=== PATIENT | female | born 1980 | race Caucasian/White ===

== ENCOUNTER 2018-05-18 15:28 | Emergency (ER) | payer BC, SELFPAY ==
[2018-05-18 15:30] VITALS: BP 129/89; PULSE 89; RESP 16; TEMP 36.4; BMI 32.1
--- NOTE | 2018-05-18 16:13 | RAD_ITS ---
STUDY: X-RAY - RIGHT KNEE REASON FOR EXAM: Female, 37 years old. Fall. Pain. TECHNIQUE: 4 view(s) of the knee. COMPARISON: None. FINDINGS: Normal visualized distal femur. Normal visualized proximal tibia and fibula. Normal proximal tibiofibular articulation. Normal medial femorotibial compartment. Normal lateral femorotibial compartment. There is slight lateral tilt of the patella. The soft tissue structures are unremarkable. RAD/Knee 4 or More Views IMPRESSION: No acute osseous abnormality. Electronically Signed: Davin Rowland MD at 17:05 EDT , Service support ,
--- NOTE | 2018-05-18 17:11 | ED.RN ---
pt informed radiology of diabetic implant. electrical laboratory technician eunice states he wrapped arm that had implant in it with thyroid sheild and covered arm with lead shield. dr arroyo aware of implanted and stated x-ray would be ok. pt made aware and consented to xray with above precautions
--- NOTE | 2018-05-18 17:18 | ED.VISSUMM ---
- ER Visit Summary Date of Service: 05/18/18 Chief Complaint: Right knee pain History of Present Illness: The patient is a 37 F who presents with right knee pain that began after a fall today. Patient states she tripped and landed on her right knee. Patient states the pain is worse with certain movements. Patient denies any paresthesias or weakness. Patient states pain is also worse with weightbearing. She denies any other injuries. Patient states her tetanus is up-to-date. Physical Examination: Vital signs are stable. Patient is afebrile. Patient is in no acute distress. Musculoskeletal exam reveals tenderness over the anterior aspect of the right knee. There is no effusion. There is a superficial abrasion over the anterior lateral aspect of the right knee. There is no bony crepitance or step-off noted. Extensor mechanism is intact. Range of motion was slightly limited in complete flexion secondary to pain. There are no motor or sensory deficits noted. Test Results: X-rays of the right knee were obtained. There is no acute fracture noted. Emergency Department Course and Treatment: Patient was instructed to ice and elevate the right knee. Patient was instructed to take Tylenol or ibuprofen as needed for pain. Patient was instructed to follow-up with her primary care physician in 7-10 days. Patient understood and was agreeable with the plan. All questions were answered. Disposition: Discharge home Impression: Right knee contusion This note was generated with Answer.To dictation software. It may contain incorrect words, spelling, and punctuation that were not noted in review of the chart prior to signing ED Disposition - Plan for ED Patient: Disposition: Home or Assisted Living Chief Complaint: Lower Extremity Injury Diagnosis: Contusion of right knee, initial encounter Instructions: ED Contusion Lower Ext Referrals: Juan Manuel Mirza MD [Primary Care Provider] -
== END 2018-05-18 17:30 | disposition home or self-care (01) ==
PROVIDERS: Emergency Provider Emergency Medicine; Family Provider Family Medicine; PCP Family Medicine
DX: S80.01XA Contusion of right knee, initial encounter (principal); W01.0XXA Fall on same level from slipping, tripping and stumbling without subsequent striking against object, initial encounter; Y93.9 Activity, unspecified; Y92.89 Other specified places as the place of occurrence of the external cause; Y99.9 Unspecified external cause status; E11.9 Type 2 diabetes mellitus without complications; Z98.84 Bariatric surgery status
CPT/HCPCS: 73564; 99282

== ENCOUNTER 2019-06-09 13:52 | Outpatient (RCR) | payer BC, SELFPAY ==
--- NOTE | 2019-06-09 15:13 | HP.PTEVAL_ITS ---
Patient's Visit Information ZNA HANKS is a 38 year old F referred to Physical Therapy by Ja Austin MD with a diagnosis of L TMJ. Date of Evaluation: 06/09/19 Physical Therapist: Yousuf Carlin PT, ATC - Visit Plan Frequency: 1-2x/week Duration: 3 Weeks Plan: L facial DTR, postural edu, TMJ mobs, and HEP - Subjective Findings: Pt reports she has had TMJ for greater than 10 years. Pt reports she did use a mouthguard 8-10 years ago, but reports it was uncomfortable and she really didnt experience any benefit from using them. 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 Pt has not had any Dx tests at this time. Pt notes sleep difficulty secondary to pain, but notes that is mostly located in her ear. Pt also complains of pain basically located on the entire left side of her head and neck. Pt reports she is not limited with her normal daily activities. 4/10 pain at rest, 9/10 at worst - Pain L TMJ Pain Intensity (Out of 10): 4 Pain Intensity Range: 9 - Objective Neuro: Pt is WNL to lgiht touch throughout head and neck. Palpation: Pt is very tender over L TMJ. No obvious deformity present at this time. ROM: Mouth opening and closing is WNL. c/s rom: Pt is minimally limited with R SB, R ROT, and extension secondary to tightness in the L C/S. All other ranges are WNL. Repeated movements of the C/S: repeated protraction is sitting increase sx's to L C/S. Repeated retraction is sitting has no effect. - Goals Goal 1:: Decrease L TMJ pain x 50% to aid with sleep Goal Time Frame: 2-4 Weeks Goal 2:: Increase C/S ROM to WNL to aid with decreasing neck pain. Goal Time Frame: 2-4 Weeks Goal 3:: I with HEP Goal Time Frame: 2-4 Weeks - Rehabilitation Potential Physical Therapy Diagnosis: Pt has L sided facial pain and limited ROM secondary to L sided TMJ Rehabilitation Potential: Good - Anticipated Interventions Patient/Client Instruction: Educate patient on: Condition, Plan of Care For the Purpose of:: To improve self management Therapeutic Exercise to Include: Flexibilty training, Jason Exercises For the Purpose of:: To decrease pain, To increase ROM Manual Therapy Techniques to Include: Mobilization, Soft tissue mobilization For the Purpose of:: To decrease pain Thank you for the opportunity to evaluate your patient. For Medicare and Medicare HMO plans, please review the plan of care and approve it. It will need to be FAXED BACK to us at [phone] for Medicare purposes. For Medicare only, by signing this I certify the plan of care. Please let me know if there are questions or concerns regarding this plan of care. Physician S ignature: Date:
--- NOTE | 2019-08-18 16:08 | HP.PT.NRP ---
HP - Discharge Summary (1) - Patient Information ZAN HANKS was seen in my office for initial evaluation on 06/09/19. The following Plan of Care was established for this patient: Initial Frequency: 1-2x/week Initial Duration: 3 Weeks - Anticipated Interventions Patient/Client Instruction: Educate patient on: Condition, Plan of Care For the Purpose of:: To improve self management Therapeutic Exercise to Include: Flexibilty training, Jason Exercises For the Purpose of:: To decrease pain, To increase ROM Manual Therapy Techniques to Include: Mobilization, Soft tissue mobilization For the Purpose of:: To decrease pain This patient was last seen in our office . Pertinent comments regarding their Physical therapy will appear below: Pt was evaluated for TMJ on the date of 06/09/19. Pt has not returned through todays date, and is therefore discontinued at this time. At this point I will be discontinuing this patient from physical therapy. I would be happy to see this patient again in the future if found appropriate by the physician. Thank you! Yousuf Carlin, PT, ATC
== END 2019-06-09 19:00 | disposition home or self-care (01) ==
LOC: PT 13:52
PROVIDERS: Family Provider Family Medicine; PCP Family Medicine; Referring Provider Otolaryngology; Visit Provider Otolaryngology
DX: M26.623 Arthralgia of bilateral temporomandibular joint (principal)
CPT/HCPCS: 97161

== ENCOUNTER 2020-05-03 18:36 | Emergency (ER) | payer BC, SELFPAY ==
[2020-05-03 18:38] VITALS: BP 133/90; PULSE 101; PULSE 96; RESP 15; TEMP 36.2; O2SAT 95; O2SAT 96; BMI 29.7
--- NOTE | 2020-05-03 19:03 | CT_ITS ---
STUDY: CT ABDOMEN AND PELVIS WITH CONTRAST REASON FOR EXAM: Female, 39 years old. Chest and abdominal pain with nausea and vomiting for one month. Now worsening with weight loss. RADIATION DOSAGE (If Supplied By Facility): CTDIvol = ( 14.90 ) mGy, DLP = ( 1375.14 ) mGycm TECHNIQUE: Transaxial images were obtained from the dome of the diaphragm to the symphysis pubis with oral contrast. Oral and amp; IV Gastrografin and amp; 100mL Isovue-370 was administered. Sagittal and coronal images were reconstructed. Individualized dose optimization techniques were used for this CT. COMPARISON: CTA of the chest, May 03, 2020. FINDINGS: The visualized lung bases are unremarkable. The visualized portions of the heart are within normal limits. Normal liver. Normal gallbladder and extrahepatic biliary system. Normal spleen. Normal pancreas. Normal bilateral adrenal glands. Normal right kidney. Normal left kidney. Normal visualized ureters. No evidence of gastric bypass surgery. Normal small intestine. Normal colon. The appendix is prominent, measuring 1 cm in diameter. The appendiceal wall measures 4 mm in diameter. There is no periappendiceal stranding. Normal abdominal aorta. Normal inferior vena cava. Normal retroperitoneum. Normal urinary bladder. Retroverted uterus. There are multiple follicles within the ovaries. There is no pelvic lymphadenopathy or mass. No free air or free fluid is seen within the peritoneal cavity. Normal abdominal wall. Normal osseous structures. CT/Abdomen/Pelvis WITH Contrast IMPRESSION: 1. Question mild uncomplicated appendicitis. 2. No other evidence of intra-abdominal or pelvic abnormality. N.B. : The above information has been verbally conveyed by Sunny Caldwell DO to Pat Mendez MD, on 05/03/2020 21:09:56 (ET). Electronically Signed: Sunny Caldwell DO at 21:11 EDT Tel [phone], Service support ,
--- NOTE | 2020-05-03 19:04 | CT_ITS ---
STUDY: CTA CHEST REASON FOR EXAM: Female, 39 years old. Chest and abdominal pain with nausea and vomiting for one month. Now increasing with weight loss. RADIATION DOSAGE (If Supplied By Facility): CTDIvol = ( 14.90 ) mGy, DLP = ( 1375.14 ) mGycm TECHNIQUE: The examination was performed with the intravenous administration of Oral and amp; IV Gastrografin and amp; 100mL Isovue-370. Post-processing of the angiographic images was performed, with multiplanar reformation and 3D reconstruction. Individualized dose optimization techniques were used for this CT. COMPARISON: None. FINDINGS: Normal enhancement of the main pulmonary artery and right and left pulmonary arteries. Normal enhancement of the bilateral peripheral pulmonary arteries. There is no demonstrated pulmonary embolism. Normal thoracic aorta and visualized great vessels. There is no demonstrated aortic dissection. Normal heart and pericardium. Normal mediastinum. Normal hilar regions. Normal visualized trachea and bronchi. The lungs are well expanded. Normal pulmonary parenchyma. Normal pleura. Normal chest wall structures. Normal osseous structures. No evidence of gastric bypass surgery. CT/CTA Chest W/WO Contrast IMPRESSION: Normal CTA chest examination, without a demonstrated pulmonary embolism or arterial dissection. Electronically Signed: Sunny Caldwell DO at 21:06 EDT Tel [phone], Service support ,
--- NOTE | 2020-05-03 19:05 | ED.DCSUM_ITS ---
History of Present Illness Chief Complaint: Abd Pain Informant: Patient Onset: Month(s) Context: Gradual Onset Timing: Waxes and wanes Current Severity: Mild Maximum Severity: Moderate Narrative: Patient presents from the urgent care for further work-up. She has had left upper quadrant abdominal pain with nausea and vomiting for the past month or more. It is gotten worse over the past 1 week. She also complains of pain over the left lower ribs. There is a pleuritic component to this. Patient has lost 30 to 35 pounds this year without attempting to lose weight. She went to the urgent care and they were primarily concerned with PE, costochondritis, or pleurisy. They were unable to rule out a blood clot so she was sent to the emergency room. Patient denies change in bowel habits. She has had prior gastric bypass and had a stomach ulcer after her surgery. She no longer takes antacids. - Past Medical History (1) PCOS (polycystic ovarian syndrome) Status: Chronic (2) High cholesterol Status: Chronic (3) Hypertension Status: Chronic (4) Diabetes Status: Chronic Past Medical History - Allergies and Home Meds Allergies/Adverse Reactions: Allergies morphine Allergy (Verified 05/03/20 18:37) Hives Primary Care Physician: Juan Manuel Mirza MD [Primary Care Provider] - Prior records reviewed: Yes Lives: With Family Smoking Status: Never smoker Review of Systems General: Denies: Chills, Fever, Sweats Eyes: Denies: Visual changes - bilaterally ENT: Denies: Bilateral ear pain Cardiovascular: Reports: Chest pain - Left lower rib pain Respiratory: Denies: Dyspnea, Cough Gastrointestinal: Reports: Abdominal pain, Nausea, Vomiting. Denies: Diarrhea, Melena Genitourinary: Denies: Dysuria Musculoskeletal: Denies: Swelling, Extremity Pain Skin: Denies: Rash Neurological: Denies: Headache Hematologic: Denies: Easy bruising, Easy bleeding Allergy: Denies: Uticaria Physical Exam Vital Signs/Narrative: Vital Signs Temp Pulse Resp BP Pulse Ox 05/03/20 18:38 97.2 F L 101 H 15 133/90 H 96 Inital Vital Signs reviewed: Yes General: Well nourished, Well developed Head: Normocephalic ENT: Moist mucous membranes Neck: Supple Cardiovascular: Regular rate, Regular rhythm Respiratory: No distress, CTA bilaterally, Chest tenderness - Mild tenderness of the left lower ribs. No crepitus. Abdomen: Soft, Tender - Mild tenderness in the left upper quadrant.. Negative for: Guarding, Rebound tenderness Back: Nontender Extremities: Nontender Skin: Normal color, No rash Neurological: Alert, Oriented x3 Psychological: Normal affect Diagnostic/Tx/Re-eval Impressions Abdomen/Pelvis CT 05/03/20 19:03 IMPRESSION: 1. Question mild uncomplicated appendicitis. 2. No other evidence of intra-abdominal or pelvic abnormality. N.B. : The above information has been verbally conveyed by Sunny Caldwell DO to Pat Mendez MD, on 05/03/2020 21:09:56 (ET). Electronically Signed: Sunny Caldwell DO at 21:11 EDT Tel [phone], Service support , ADDENDUM: 05/03/202117 IMPRESSION: 1. Question mild uncomplicated appendicitis. 2. No other evidence of intra-abdominal or pelvic abnormality. N.B. : The above information has been verbally conveyed by Sunny Caldwell DO to Pat Mendez MD, on 05/03/2020 21:09:56 (ET). Electronically Signed: Sunny Caldwell DO at 21:11 EDT Tel [phone], Service support , Chest CTA 05/03/20 19:04 IMPRESSION: Normal CTA chest examination, without a demonstrated pulmonary embolism or arterial dissection. Electronically Signed: Sunny Caldwell DO at 21:06 EDT Tel [phone], Service support , 05/03/20 19:03 Abdomen/Pelvis WITH Contrast [CT] Stat 05/03/20 19:04 CTA Chest W/WO Contrast [CT] Stat Laboratory Results 05/03/20 05/03/20 05/03/20 19:10 19:10 19:10 WBC 6.7 RBC 4.17 L Hgb 11.4 L Hct 35.9 L MCV 86.1 MCH 27.3 MCHC 31.8 L RDW Std Deviation 39.6 RDW Coeff of Katelynn 12.6 Plt Count 323 MPV 12.0 Immature Gran % (Auto) 0.200 Neut % (Auto) 66.2 Lymph % (Auto) 24.2 [place] % (Auto) 7.1 Eos % (Auto) 1.8 Baso % (Auto) 0.5 Absolute Neuts (auto) 4.4 Absolute Lymphs (auto) 1.61 Nucleated RBC % 0 Sodium 135 L Potassium 4.2 Chloride 101 Carbon Dioxide 28.0 Anion Gap 6 BUN 14 Creatinine 0.89 Estim Creat Clear Calc 80.23 Est GFR (MDRD) Af Amer 90 Est GFR (MDRD) Non-Af 75 BUN/Creatinine Ratio 15.7 Glucose 430 H Calcium 8.9 Total Bilirubin 0.20 Direct Bilirubin 0.11 AST 11 L ALT 19 Alkaline Phosphatase 103 Total Protein 7.6 Albumin 3.0 L Globulin 4.6 H Lipase 71 L Serum , Qual NEGATIVE - Medical Decision Making Patient declined anything for pain while here. Radiologist did call me about generous size to her appendix, however no periappendiceal stranding was noted. Patient has no tenderness in the lower abdomen. I spoke with Dr. Benitez who reviewed the images. She does not see signs of appendicitis on the scan. Patient will follow-up with Dr. Benitez in the office for possible EGD. Patient was given a dose of Protonix here and started on Protonix at home. If the patient develops fever or any lower abdominal pain she is to return to emergency room immediately. ED Disposition - Plan for ED Patient: Disposition: Home or Assisted Living Diagnosis: Abdominal pain Instructions: ED PEPTIC ULCER vs GASTRITIS, ED Abdominal Pain Unkn Cause Fem Prescriptions: Pantoprazole Sodium [Protonix] 40 mg PO DAILY #30 tab Transmission Status: Pending to [id number] Referrals: Jenna Benitez MD [STAFF PHYSICIAN] - As soon as possible
[2020-05-03] MEDS: 0.9% Normal Saline 1,000 ML 150 ML IV (19:29)
[2020-05-03 19:36] LABS: Absolute Lymphocyte Count 1.61 X10^3/uL (0.83-4.51); Absolute Neutrophil Count 4.4 X10^3/uL (2.0-7.7); Basophil# 0.03 X10^3/uL; Basophil% 0.5 % (0-1); Eosinophil# 0.12 X10^3/uL; Eosinophils% 1.8 % (0-5); Hematocrit 35.9 % (37-47); Hemoglobin 11.4 g/dL (12.0-15.0); Lymphocyte # 1.61 X10^3/ul (4.0); Lymphocyte % 24.2 % (19-41); Mean Corp Hgb Conc 31.8 g/dL (32-36); Mean Corpuscular Hgb 27.3 pg (27.0-32.0); Mean Corpuscular Volume 86.1 fL (81-99); Monocyte# 0.47 X10^3/uL; Monocyte% 7.1 % (0-10); NRBC Flagged by Analyzer 0 % (0-5); Neutrophil # 4.41 X10^3/uL (2.7-7.7); Neutrophil % 66.2 % (47-70); Platelet Count 323 K/mm3 (150-450); RBC Distribution Width CV 12.6 % (11.6-14.6); RBC Distribution Width SD 39.6 fl (35.1-43.9); Red Blood Count 4.17 M/mm3 (4.2-5.4); White Blood Count 6.7 K/mm3 (4.4-11.0)
[2020-05-03 19:48] LABS: Internal QC Validated? YES +Cl - CLEAR BKGD; Pregnancy, Serum, hCG Quali. NEGATIVE Negative
[2020-05-03 20:44] LABS: AST(SGOT) 11 U/L (15-37); Alanine Aminotransfer ALT/SGPT 19 U/L (13-56); Alkaline Phosphatase 103 U/L (45-117); Anion Gap 6 (5-15); BUN 14 mg/dL (7-18); BUN/Creat Ratio 15.7 RATIO (10-20); Bilirubin, Direct 0.11 mg/dL (0.00-0.30); Calcium,Total 8.9 mg/dL (8.5-10.1); Chloride 101 mmol/L (98-107); Creatinine, Serum 0.89 mg/dL (0.55-1.02); EST Glomerular Filtration Rate 75 mL/min (>60); Est Glom Filt Rate - Afr Amer 90 mL/min (>60); Estimated Creatinine Clearance 80.23 ml/min; Globulin 4.6 g/dL (2.2-4.2); Glucose 430 mg/dL (74-106); Lipase 71 U/L (73-393); Potassium 4.2 mmol/L (3.5-5.1); Protein, Total 7.6 g/dL (6.4-8.2); Sodium Level 135 mmol/L (136-145)
[2020-05-03 20:52] VITALS: RESP 16
[2020-05-03] MEDS: 0.9% Normal Saline 1,000 ML 999 ML IV (20:55)
[2020-05-03] MEDS: Pantoprazole Sodium 40 MG Tablet PO (22:06)
[2020-05-03 22:07] VITALS: BP 126/80; PULSE 72; RESP 16; O2SAT 98
== END 2020-05-03 22:09 | disposition home or self-care (01) ==
PROVIDERS: Emergency Provider Emergency Medicine; PCP Family Medicine
DX: R10.12 Left upper quadrant pain (principal); R11.0 Nausea; E11.9 Type 2 diabetes mellitus without complications; E28.2 Polycystic ovarian syndrome; E78.00 Pure hypercholesterolemia, unspecified; I10 Essential (primary) hypertension; Z87.11 Personal history of peptic ulcer disease; Z98.84 Bariatric surgery status
CPT/HCPCS: 71275; 74177; 80048; 80076; 83690; 84703; 85025; 99284; J7030; Q9967; A4216

== ENCOUNTER → 2021-04-06 14:21 | Outpatient (CLI) | payer OTHER, SELFPAY ==
[2021-04-06 14:41] VITALS: BP 114/74; PULSE 117; RESP 16; TEMP 36; O2SAT 94; BMI 29.7
[2021-04-06 15:08] VITALS: BP 116/66; PULSE 119; RESP 16; TEMP 36.3
[2021-04-06 15:40] VITALS: BP 114/65; PULSE 98; RESP 16
== END ==
PROVIDERS: PCP Family Medicine; Referring Provider Internal Medicine Hematology & Oncology; Visit Provider Internal Medicine Hematology & Oncology
DX: E61.1 Iron deficiency (principal); K90.9 Intestinal malabsorption, unspecified; Z98.84 Bariatric surgery status
CPT/HCPCS: 96365; J1756; A4216

== ENCOUNTER → 2021-04-08 14:29 | Outpatient (CLI) | payer OTHER, SELFPAY ==
[2021-04-06 14:41] VITALS: BMI 29.7
[2021-04-08 14:41] VITALS: BP 116/68; PULSE 118; RESP 16; TEMP 36.2; O2SAT 98; BMI 29.0
[2021-04-08 15:35] VITALS: BP 99/64; PULSE 115; RESP 16; TEMP 36.3; O2SAT 99
== END ==
PROVIDERS: PCP Family Medicine; Referring Provider Internal Medicine Hematology & Oncology; Visit Provider Internal Medicine Hematology & Oncology
DX: E61.1 Iron deficiency (principal); K90.9 Intestinal malabsorption, unspecified; Z98.84 Bariatric surgery status
CPT/HCPCS: 96365; J1756; J7050; A4216

== ENCOUNTER → 2021-04-11 14:30 | Outpatient (CLI) | payer OTHER, SELFPAY ==
[2021-04-08 14:41] VITALS: BMI 29.0
[2021-04-11 14:42] VITALS: BP 142/90; PULSE 88; RESP 16; TEMP 36.1; O2SAT 98; BMI 29.0
[2021-04-11 15:28] VITALS: BP 128/89; PULSE 90; RESP 16; TEMP 36.2
== END ==
PROVIDERS: PCP Family Medicine; Referring Provider Internal Medicine Hematology & Oncology; Visit Provider Internal Medicine Hematology & Oncology
DX: E61.1 Iron deficiency (principal); K90.9 Intestinal malabsorption, unspecified; Z98.84 Bariatric surgery status
CPT/HCPCS: 96365; J1756; J7050; A4216

== ENCOUNTER → 2021-04-13 14:28 | Outpatient (CLI) | payer OTHER, SELFPAY ==
[2021-04-11 14:42] VITALS: BMI 29.0
[2021-04-13 14:33] VITALS: BP 140/87; PULSE 93; RESP 16; TEMP 36.4; O2SAT 99; BMI 29.0
[2021-04-13 15:25] VITALS: BP 147/97; PULSE 79; RESP 16; TEMP 36.7; O2SAT 98
== END ==
PROVIDERS: PCP Family Medicine; Referring Provider Internal Medicine Hematology & Oncology; Visit Provider Internal Medicine Hematology & Oncology
DX: E61.1 Iron deficiency (principal); K90.9 Intestinal malabsorption, unspecified; Z98.84 Bariatric surgery status
CPT/HCPCS: 96365; J1756; J7050; A4216

== ENCOUNTER → 2021-04-15 14:29 | Outpatient (CLI) | payer OTHER, SELFPAY ==
[2021-04-13 14:33] VITALS: BMI 29.0
[2021-04-15 14:52] VITALS: BP 125/87; PULSE 90; RESP 16; TEMP 36.6; O2SAT 97; BMI 29.0
[2021-04-15 15:31] VITALS: BP 128/75; PULSE 74; TEMP 36.3
== END ==
PROVIDERS: PCP Family Medicine; Referring Provider Internal Medicine Hematology & Oncology; Visit Provider Internal Medicine Hematology & Oncology
DX: E61.1 Iron deficiency (principal); K90.9 Intestinal malabsorption, unspecified; Z98.84 Bariatric surgery status
CPT/HCPCS: 96365; J1756; J7050; A4216

== ENCOUNTER 2021-04-27 16:31 | Emergency (ER) | payer OTHER, SELFPAY ==
[2021-04-15 14:52] VITALS: BMI 29.0
[2021-04-27] VITALS (7 sets, daily range): BP systolic 119–136; BP diastolic 78–96; PULSE 86–95; RESP 13–17; TEMP 36.3; O2SAT 97–99; BMI 28.7
--- NOTE | 2021-04-27 17:04 | EKG12_ITS ---
Test Reason : CP Blood Pressure : / mmHG Vent. Rate : 089 BPM Atrial Rate : 089 BPM P-R Int : 178 ms QRS Dur : 084 ms QT Int : 362 ms P-R-T Axes : 050 044 059 degrees QTc Int : 440 ms Normal sinus rhythm Normal ECG Confirmed by MANAN LANDAVERDE, KIKA ([id number]), newspaper copy editor NEELIMA MONTOYA ([id number]) on 05/02/2021 12:55:39 PM Referred By: KATRINA/MALLY Confirmed By:KIKA HINKLE MD
--- NOTE | 2021-04-27 17:14 | NURSING ---
NO OLD EKGS
[2021-04-27] MEDS: Aspirin 81 MG TAB.CHEW 324 MG PO (17:15)
[2021-04-27 17:16] LABS: Absolute Lymphocyte Count 2.08 X10^3/uL (0.83-4.51); Absolute Neutrophil Count 1.9 X10^3/uL (2.0-7.7); Basophil# 0.12 X10^3/uL; Basophil% 2.5 % (0-1); Eosinophil# 0.22 X10^3/uL; Eosinophils% 4.5 % (0-5); Hematocrit 35.1 % (37-47); Hemoglobin 10.6 g/dL (12.0-15.0); Lymphocyte # 2.08 X10^3/ul (0.83-4.51); Lymphocyte % 42.6 % (19-41); Mean Corp Hgb Conc 30.2 g/dL (32-36); Mean Corpuscular Hgb 27.1 pg (27.0-32.0); Mean Corpuscular Volume 89.8 fL (81-99); Mean Platelet Vol. 11.1 fl (6.2-12.0); Monocyte# 0.52 X10^3/uL; Monocyte% 10.7 % (0-10); NRBC Flagged by Analyzer 0 % (0-5); Neutrophil # 1.92 X10^3/uL (2.7-7.7); Neutrophil % 39.3 % (47-70); Platelet Count 415 K/mm3 (150-450); RBC Distribution Width CV 16.6 % (11.6-14.6); RBC Distribution Width SD 54.2 fl (35.1-43.9); Red Blood Count 3.91 M/mm3 (4.2-5.4); White Blood Count 4.9 K/mm3 (4.4-11.0)
--- NOTE | 2021-04-27 17:20 | RAD_ITS ---
INDICATION: chest pain EXAMINATION/TECHNIQUE: X-RAY - XR Chest 1 View COMPARISON: None. FINDINGS: The lungs are clear. The cardiomediastinal silhouette is unremarkable. No pleural effusion or pneumothorax. No acute osseous abnormalities. RAD/Chest 1 View (Portable) IMPRESSION: No acute radiographic abnormalities. Electronically Signed: Ta Watkins MD at 18:12 EDT Tel , Service support ,
--- NOTE | 2021-04-27 17:21 | ED.VIS.CHEST ---
HPI History of Present Illness Chief Complaint: Chest Pain Narrative Narrative: Patient presents with chronic chest pain, she was diagnosed with pneumonia is due to get on a plane in a few days and wants to make sure her pneumonia has resolved especially that she has some pain. She has a slight pleuritic component. She no longer has fevers or chills she has no significant cough. No back pain or tearing sensation. PFSH PFSH Medical History Non-smoker Home Medications gabapentin 900 mg PO TID 05/18/18 [History Last Taken Unknown] metformin 1,000 mg PO DAILY 05/18/18 [History Last Taken Unknown] indomethacin 75 mg PO TID 05/03/20 [History Last Taken Unknown] pantoprazole 40 mg PO DAILY #30 tab 05/03/20 [Rx Last Taken Unknown] glimepiride 1 mg PO DAILY 04/06/21 [History Last Taken Unknown] ergocalciferol (vitamin D2) [Vitamin D2] 50,000 unit PO QWEEK 04/27/21 [History Last Taken Unknown] Allergy/AdvReac Type Severity Reaction Status Date / Time morphine Allergy Hives Verified 04/27/21 16:34 Surgical History (Updated 04/27/21 @ 16:53 by Eldon Dong) Gastric bypass status for obesity Hx of section Social History Smoking Status: Never smoker ROS ROS ED ROS Narrative Past medical history: Reviewed, includes diabetes, GERD and recent pneumonia Medications: Reviewed Social history: Noncontributory Review of systems: All systems negative except as indicated General: No fever Eyes: No visual changes ENT: No upper airway congestion, normal voice Neck: No neck pain Cardiovascular: Chest pain as in HPI Respiratory: No shortness of breath or cough Gastrointestinal: No abdominal pain, nausea vomiting or diarrhea Genitourinary: No dysuria Musculoskeletal: Denies myalgias no difficulty with ambulation Skin: No rash Neurological: No memory loss, confusion or any focal weakness Psych: No recent behavioral changes Hematologic: No easy bleeding or easy bruising EXAM Physical Exam Narrative Exam Narrative: Physical exam General: Well nourished, Well developed, No Acute Distress Head: Normocephalic, Atraumatic Eyes: Conjunctiva not pale ENT: Moist mucous membranes Neck: Supple, Nontender, No lymphadenopathy Cardiovascular: Regular rate, Regular rhythm Respiratory: No distress, CTA bilaterally Abdomen: Soft, Nontender, Nondistended Back: Nontender, Normal Inspection. Negative for: CVA tenderness Extremities: Nontender, No edema Skin: Normal color, No rash Neurological: Alert, Normal Strength, Normal Sensation Psychological: Normal affect Const Vital Signs: 04/27/21 16:32 04/27/21 16:56 04/27/21 17:07 Temperature 97.3 F L Temperature Source Temporal Pulse Rate 94 95 Respiratory Rate 15 15 Blood Pressure 122/78 H 136/90 H Blood Pressure Mean 92 105 Pulse Ox 97 99 98 Oxygen Delivery Method Room Air Room Air Room Air 04/27/21 17:40 04/27/21 18:09 04/27/21 19:11 Temperature Temperature Source Pulse Rate 93 89 86 Respiratory Rate 17 13 16 Blood Pressure 119/89 H 119/81 H 121/96 H Blood Pressure Mean 99 93 104 Pulse Ox 99 98 99 Oxygen Delivery Method Room Air Room Air Room Air MDM MDM MDM Narrative Medical decision making narrative: Patient has an unremarkable emergency department work-up. She appears well, her D-dimer was slightly elevated therefore a PE study was done. This was negative. It did however demonstrate the pneumonia is likely smaller since I did not see it on the x-ray, it is likely significantly improving and now she has residual infiltrate. Regardless I believe she is stable for discharge. Lab Data Labs: Laboratory Results - last 24 hr 04/27/21 04/27/21 04/27/21 16:55 16:55 17:38 WBC 4.9 RBC 3.91 L Hgb 10.6 L Hct 35.1 L MCV 89.8 MCH 27.1 MCHC 30.2 L RDW Std Deviation 54.2 H RDW Coeff of Katelynn 16.6 H Plt Count 415 MPV 11.1 Immature Gran % (Auto) 0.400 Neut % (Auto) 39.3 L Lymph % (Auto) 42.6 H [place] % (Auto) 10.7 H Eos % (Auto) 4.5 Baso % (Auto) 2.5 H Absolute Neuts (auto) 1.9 L Absolute Lymphs (auto) 2.08 Nucleated RBC % 0 D-Dimer Quant (PE/DVT) 0.59 H* Sodium 138 Potassium 4.7 Chloride 108 H Carbon Dioxide 27.0 Anion Gap 3 L BUN 24 H Creatinine 0.82 Estim Creat Clear Calc 86.23 Est GFR (MDRD) Af Amer 100 Est GFR (MDRD) Non-Af 83 BUN/Creatinine Ratio 29.4 H Glucose 230 H Calcium 8.4 L Troponin I High Sens < 3.0 L Radiography Diagnostic Testing: Radiology Impression Chest X-Ray 04/27/21 17:20 IMPRESSION: No acute radiographic abnormalities. Electronically Signed: Ta Watkins MD at 18:12 EDT Tel , Service support , Chest CTA 04/27/21 19:19 IMPRESSION: Negative CTA Chest. Right upper lobe airspace disease consistent with pneumonia. Individualized dose optimization techniques were used for this CT. at 1958 Reported and signed by: Robb Londono MD Electronically Signed: Robb Londono MD at 19:56 EDT Tel , Service support , Discharge Plan Triage Chief Complaint: Chest Pain ED Provider: Darren Fan Dx/Rx/DC Orders Clinical Impression: Pneumonia Instructions: ED Pneumonia (Adult) Prescriptions: No Action gabapentin 300 MG capsule 900 mg PO TID RF: 0 metformin 500 MG tablet 1,000 mg PO DAILY RF: 0 indomethacin 25 MG capsule 75 mg PO TID RF: 0 pantoprazole 40 MG tablet 40 mg PO DAILY Qty: 30 RF: 0 glimepiride 1 mg Tablet 1 mg PO DAILY RF: 0 ergocalciferol (vitamin D2) [Vitamin D2] 1,250 mcg (50,000 unit) capsule 50,000 unit PO QWEEK RF: 0 Primary Care Provider: Juan Manuel Mirza Referrals: Juan Manuel Mirza MD [Primary Care Provider] - 2 Days Disposition Disposition: Home, Self Care
[2021-04-27 18:11] LABS: D-Dimer Quantitative (DVT/PE) 0.59 FEU/ug/m (0.27-0.49)
[2021-04-27 19:02] LABS: Anion Gap 3 (5-15); BUN 24 mg/dL (7-18); BUN/Creat Ratio 29.4 RATIO (10-20); Calcium,Total 8.4 mg/dL (8.5-10.1); Chloride 108 mmol/L (98-107); Creatinine, Serum 0.82 mg/dL (0.55-1.02); EST Glomerular Filtration Rate 83 mL/min (>60); Est Glom Filt Rate - Afr Amer 100 mL/min (>60); Estimated Creatinine Clearance 86.23 ml/min; Glucose 230 mg/dL (74-106); Potassium 4.7 mmol/L (3.5-5.1); Sodium Level 138 mmol/L (136-145); Troponin-I HS < 3.0 pg/mL (3.0-53.7)
--- NOTE | 2021-04-27 19:19 | CT_ITS ---
HISTORY: Chest pain EXAMINATION: CTA Chest WO/W Contrast Injection TECHNIQUE: Helically acquired images were obtained of the chest following IV contrast as per pulmonary angiogram protocol with 3D reconstructions. A radiation dose optimization technique was used for this scan. IV Contrast dosage and agent: 75mL Isovue-370 COMPARISON: 05/03/20 FINDINGS: LUNGS, PLEURA AND LARGE AIRWAYS: Right upper lobe airspace disease without consolidation, or edema. No pleural effusion or thickening. No pneumothorax. THYROID: No thyroid lesions. PULMONARY ARTERIES: Normal in caliber. No pulmonary embolism. AORTA AND GREAT VESSELS: No aneurysm or dissection. HEART AND PERICARDIUM: Heart size is normal. No pericardial effusion. No signs of right heart strain. MEDIASTINUM AND MONIQUE: No mediastinal or hilar adenopathy. Esophagus is unremarkable. No hiatal hernia. UPPER ABDOMEN: No acute pathology. BONES: No suspicious lytic or blastic abnormality. CT/CTA Chest W/WO Contrast IMPRESSION: Negative CTA Chest. Right upper lobe airspace disease consistent with pneumonia. Individualized dose optimization techniques were used for this CT. at 1958 Reported and signed by: Robb Londono MD Electronically Signed: Robb Londono MD at 19:56 EDT Tel , Service support ,
== END 2021-04-27 20:25 | disposition home or self-care (01) ==
PROVIDERS: Emergency Provider Emergency Medicine; PCP Family Medicine
DX: J18.9 Pneumonia, unspecified organism (principal); E11.9 Type 2 diabetes mellitus without complications; K21.9 Gastro-esophageal reflux disease without esophagitis; Z79.84 Long term (current) use of oral hypoglycemic drugs; Z79.899 Other long term (current) drug therapy
CPT/HCPCS: 71045; 71275; 80048; 84484; 85025; 85379; 93005; 99284; A4216

== ENCOUNTER → 2021-05-16 13:57 | Outpatient (CLI) | payer OTHER, SELFPAY ==
[2021-04-27 16:32] VITALS: BMI 28.7
[2021-05-16 14:26] VITALS: BP 128/78; PULSE 94; RESP 16; TEMP 36.4; O2SAT 100; BMI 28.2
[2021-05-16 15:13] VITALS: BP 123/75; PULSE 87; TEMP 36.4; O2SAT 100
== END ==
LOC: MEDOUTP 13:57
PROVIDERS: PCP Family Medicine; Referring Provider Internal Medicine Hematology & Oncology; Visit Provider Internal Medicine Hematology & Oncology
DX: D50.9 Iron deficiency anemia, unspecified (principal); K90.9 Intestinal malabsorption, unspecified; Z98.84 Bariatric surgery status
CPT/HCPCS: 96365; J1756; J7050; A4216

== ENCOUNTER → 2021-05-18 13:55 | Outpatient (CLI) | payer OTHER, SELFPAY ==
[2021-04-27 16:32] VITALS: BMI 28.7
[2021-05-16 14:26] VITALS: BMI 28.2
[2021-05-18 14:15] VITALS: BP 144/87; PULSE 85; RESP 16; TEMP 36.2; O2SAT 100
[2021-05-18 15:20] VITALS: BP 128/87; PULSE 86; RESP 16
== END ==
LOC: MEDOUTP 13:55
PROVIDERS: PCP Family Medicine; Referring Provider Internal Medicine Hematology & Oncology; Visit Provider Internal Medicine Hematology & Oncology
DX: D50.9 Iron deficiency anemia, unspecified (principal); K90.9 Intestinal malabsorption, unspecified; Z98.84 Bariatric surgery status
CPT/HCPCS: 96365; J1756; J7050; A4216

== ENCOUNTER → 2021-05-20 13:58 | Outpatient (CLI) | payer OTHER, SELFPAY ==
[2021-04-27 16:32] VITALS: BMI 28.7
[2021-05-16 14:26] VITALS: BMI 28.2
[2021-05-20 14:24] VITALS: BP 125/77; PULSE 94; RESP 16; TEMP 36.6; O2SAT 99; BMI 28.2
== END ==
LOC: MEDOUTP 13:58
PROVIDERS: PCP Family Medicine; Referring Provider Internal Medicine Hematology & Oncology; Visit Provider Internal Medicine Hematology & Oncology
DX: D50.9 Iron deficiency anemia, unspecified (principal); K90.9 Intestinal malabsorption, unspecified; Z98.84 Bariatric surgery status
CPT/HCPCS: 96365; J1756; J7050; A4216

== ENCOUNTER → 2021-05-23 13:55 | Outpatient (CLI) | payer OTHER, SELFPAY ==
[2021-04-27 16:32] VITALS: BMI 28.7
[2021-05-20 14:24] VITALS: BMI 28.2
[2021-05-23 14:04] VITALS: BP 138/90; PULSE 79; RESP 16; TEMP 36.3; O2SAT 100; BMI 28.7
[2021-05-23 14:48] VITALS: BP 150/94; PULSE 75; RESP 16; TEMP 36.3
== END ==
LOC: MEDOUTP 13:55
PROVIDERS: PCP Family Medicine; Referring Provider Internal Medicine Hematology & Oncology; Visit Provider Internal Medicine Hematology & Oncology
DX: D50.9 Iron deficiency anemia, unspecified (principal); K90.9 Intestinal malabsorption, unspecified; Z98.84 Bariatric surgery status
CPT/HCPCS: 96365; J1756; J7050; A4216

== ENCOUNTER → 2021-05-25 13:51 | Outpatient (CLI) | payer OTHER, SELFPAY ==
[2021-04-27 16:32] VITALS: BMI 28.7
[2021-05-23 14:04] VITALS: BMI 28.7
[2021-05-25 14:20] VITALS: BP 131/90; PULSE 86; RESP 16; TEMP 36.4; O2SAT 100; BMI 28.2
[2021-05-25] MEDS: 0.9% NaCl IVPB Med Flush (250 mL) 15 ML IV (14:25)
[2021-05-25] MEDS: 0.9% NaCl Peripheral Flush Adult/Peds IV (14:25)
[2021-05-25 15:19] VITALS: BP 130/90; PULSE 83
== END ==
LOC: MEDOUTP 13:52
PROVIDERS: PCP Family Medicine; Referring Provider Internal Medicine Hematology & Oncology; Visit Provider Internal Medicine Hematology & Oncology
DX: K90.9 Intestinal malabsorption, unspecified (principal); D50.9 Iron deficiency anemia, unspecified
CPT/HCPCS: 96365; J1756; J7050; A4216

== ENCOUNTER 2021-07-07 13:05 | Emergency (ER) | payer OTHER, SELFPAY ==
[2021-07-07 13:05] VITALS: BP 116/84; PULSE 109; RESP 18; TEMP 36.2; O2SAT 95; BMI 26.6
[2021-07-07 13:23] LABS: Absolute Lymphocyte Count 1.41 X10^3/uL (0.83-4.51); Absolute Neutrophil Count 5.7 X10^3/uL (2.0-7.7); Basophil# 0.03 X10^3/uL; Basophil% 0.4 % (0-1); Eosinophil# 0.13 X10^3/uL; Eosinophils% 1.7 % (0-5); Hematocrit 39.3 % (37-47); Hemoglobin 12.4 g/dL (12.0-15.0); Lymphocyte # 1.41 X10^3/ul (0.83-4.51); Lymphocyte % 18.7 % (19-41); Mean Corp Hgb Conc 31.6 g/dL (32-36); Mean Corpuscular Hgb 27.8 pg (27.0-32.0); Mean Corpuscular Volume 88.1 fL (81-99); Mean Platelet Vol. 10.5 fl (6.2-12.0); Monocyte# 0.23 X10^3/uL; NRBC Flagged by Analyzer 0 % (0-5); Neutrophil # 5.73 X10^3/uL (2.7-7.7); Neutrophil % 75.9 % (47-70); Platelet Count 286 K/mm3 (150-450); RBC Distribution Width CV 14.2 % (11.6-14.6); RBC Distribution Width SD 44.9 fl (35.1-43.9); Red Blood Count 4.46 M/mm3 (4.2-5.4); White Blood Count 7.6 K/mm3 (4.4-11.0)
[2021-07-07 13:39] LABS: Anion Gap 4 (5-15); BUN 14 mg/dL (7-18); BUN/Creat Ratio 22.4 RATIO (10-20); Calcium,Total 7.9 mg/dL (8.5-10.1); Chloride 109 mmol/L (98-107); Creatinine, Serum 0.62 mg/dL (0.55-1.02); EST Glomerular Filtration Rate 113 mL/min (>60); Est Glom Filt Rate - Afr Amer 136 mL/min (>60); Estimated Creatinine Clearance 117.29 ml/min; Glucose 185 mg/dL (74-106); Potassium 4.6 mmol/L (3.5-5.1); Sodium Level 142 mmol/L (136-145)
--- NOTE | 2021-07-07 15:26 | EDS_ITS ---
HPI History of Present Illness Chief Complaint: General Illness Informant: patient Narrative Narrative: Presents with nausea vomiting diarrhea unable keep fluids down. Diagnosed with Covid 3 days ago. Symptoms started on Sunday with sore throat. No fevers or headache. She has had chronic GI symptoms with vomiting and diarrhea. No loss of taste or smell. She is followed by GI from [facility] has had an upper endoscopy. She states pending colonoscopy. Allergy to morphine. She has been vaccinated this past January, no Covid infections in the past. There is no sick contacts. He reports her son just tested positive yesterday. Mild cough. No chest or abdominal pain. No urinary symptoms. Reports loss of smell and only mild taste at this time. PFSH PFSH Medical History Non-smoker Home Medications gabapentin 900 mg PO TID 05/18/18 [History Last Taken Unknown] metformin 1,000 mg PO DAILY 05/18/18 [History Last Taken Unknown] indomethacin 75 mg PO TID 05/03/20 [History Last Taken Unknown] pantoprazole 40 mg PO DAILY #30 tab 05/03/20 [Rx Last Taken Unknown] glimepiride 1 mg PO DAILY 04/06/21 [History Last Taken Unknown] ergocalciferol (vitamin D2) [Vitamin D2] 50,000 unit PO QWEEK 04/27/21 [History Last Taken Unknown] ondansetron 4 mg PO Q6H PRN #10 tab 07/07/21 [Rx Last Taken Unknown] trazodone 100 mg PO QHS 07/07/21 [History Last Taken Unknown] Allergy/AdvReac Type Severity Reaction Status Date / Time morphine Allergy Hives Verified 07/07/21 13:08 Surgical History Gastric bypass status for obesity Hx of section Social History Smoking Status: Never smoker ROS ROS ED Constitutional Constitutional ED: Denies chills, fever(s) or sweats Eyes Eyes: Denies change in vision ENT ENT ED: Denies dysphagia or sore throat Cardiovascular Cardiovascular: Denies chest pain, leg edema, palpitations or racing heartbeat Respiratory/Chest Respiratory/Chest: Denies cough, dyspnea or dyspnea on exertion Gastrointestinal Gastrointestinal: Reports diarrhea, nausea and vomiting; Denies abdominal pain Genitourinary Genitourinary ED: Denies dysuria, hematuria or urinary frequency Musculoskeletal Musculoskeletal: Denies back pain, extremity pain or neck pain Integumentary Denies rash or wounds Neurologic Neurologic: Denies headache(s), paresthesias or weakness EXAM Physical Exam Const Vital Signs: 07/07/21 13:05 Temperature 97.2 F L Temperature Source Temporal Pulse Rate 109 H Respiratory Rate 18 Blood Pressure 116/84 H Blood Pressure Mean 94 Pulse Ox 95 Oxygen Delivery Method Room Air Positive well nourished and well developed General Appearance ED: well developed and NAD HEENT Reports dry mucous membranes normocephalic and atraumatic Mouth ED: Yes dry mucous membranes Mouth: dry mucous membranes Eyes PERRL, EOMs intact bilaterally and conjunctivae normal General Eye ED: Yes normal appearance of both eyes Neck no lymphadenopathy and supple General: Negative for tenderness Chest Wall Chest: Negative for tenderness Resp normal respiratory effort and normal air movement Effort and Inspection: symmetric chest movement; Negative for respiratory distre ss Cardio regular rhythm and no murmurs Rate: tachycardic Peripheral Pulses: pulses 2+ throughout GI normal to inspection, nondistended, normoactive bowel sounds and non-tender Palpation: Negative for guarding or rebound tenderness present Back/Spine no CVA tenderness and no thoracic nor lumbar tenderness Extremity normal to inspection General Extremety ED: Negative for edema or tenderness General Extremity: Negative for edema Neuro oriented x3 and no sensory deficits noted Sensorium / Orientation: awake and alert Skin no rashes or lesions noted and no wounds MDM MDM MDM Narrative Medical decision making narrative: Patient dry mucosal membranes slight tachycardia on exam. Zofran IV fluids given. Laboratory studies stable. She is tolerating oral intake. Pulse ox 95%. Patient Covid +3 days ago. Day 5 of symptoms. Should continue oral fluids prescription for Zofran. Strict return precautions. All questions answered. Patient is being discharged under pandemic conditions under declared global, national and state disaster activation, with limited medical resources. Patient and community understands this. Results discussed in layman's terms to the patient satisfaction. All questions answered in layman's terms. Patient understands importance of follow-up care as directed. Patient has been instru cted to return to the ED immediately if new symptoms, problems, or questions occur. We mutually agree with the plan of disposition. The patient understand that they may call or return with any questions or concerns at any time. Lab Data Attestation: I reviewed the patient's lab results. Labs: Laboratory Results - last 24 hr 07/07/21 07/07/21 13:15 13:15 WBC 7.6 RBC 4.46 Hgb 12.4 Hct 39.3 MCV 88.1 MCH 27.8 MCHC 31.6 L RDW Std Deviation 44.9 H RDW Coeff of Katelynn 14.2 Plt Count 286 MPV 10.5 Immature Gran % (Auto) 0.300 Neut % (Auto) 75.9 H Lymph % (Auto) 18.7 L [place] % (Auto) 3.0 Eos % (Auto) 1.7 Baso % (Auto) 0.4 Absolute Neuts (auto) 5.7 Absolute Lymphs (auto) 1.41 Nucleated RBC % 0 Sodium 142 Potassium 4.6 Chloride 109 H Carbon Dioxide 29.0 Anion Gap 4 L BUN 14 Creatinine 0.62 Estim Creat Clear Calc 117.29 Est GFR (MDRD) Af Amer 136 Est GFR (MDRD) Non-Af 113 BUN/Creatinine Ratio 22.4 H Glucose 185 H Calcium 7.9 L Discharge Plan Triage Chief Complaint: General Illness ED Provider: Carlos Venegas Dx/Rx/DC Orders Clinical Impression: COVID-19 virus infection, Nausea & vomiting Instructions: Coronavirus Disease 2019 (COVID-19): Caring for Yourself or Others, ED Diet for Vomiting or ... Prescriptions: New ondansetron 4 mg tablet,disintegrating 4 mg PO Q6H PRN (Reason: nausea and vomiting) Qty: 10 RF: 0 No Action gabapentin 300 MG capsule 900 mg PO TID RF: 0 metformin 500 MG tablet 1,000 mg PO DAILY RF: 0 indomethacin 25 MG capsule 75 mg PO TID RF: 0 pantoprazole 40 MG tablet 40 mg PO DAILY Qty: 30 RF: 0 glimepiride 1 mg Tablet 1 mg PO DAILY RF: 0 ergocalciferol (vitamin D2) [Vitamin D2] 1,250 mcg (50,000 unit) capsule 50,000 unit PO QWEEK RF: 0 trazodone 50 mg Tablet 100 mg PO QHS RF: 0 Primary Care Provider: Juan Manuel Mirza Referrals: Juan Manuel Mirza MD [Primary Care Provider] - 1 Week Disposition Disposition: Home, Self Care Discharge Date/Time: 07/07/21 16:31
[2021-07-07] MEDS: 0.9% Normal Saline 1,000 ML 999 ML IV (15:30)
[2021-07-07] MEDS: Ondansetron 4 MG/2 ML Vial IV (15:31)
== END 2021-07-07 16:31 | disposition home or self-care (01) ==
PROVIDERS: Emergency Provider Emergency Medicine; PCP Family Medicine
DX: U07.1 COVID-19 (principal); R11.2 Nausea with vomiting, unspecified; Z79.84 Long term (current) use of oral hypoglycemic drugs
CPT/HCPCS: 80048; 85025; 96361; 96374; 99283; J7030; A4216; J2405

== ENCOUNTER 2021-09-08 09:20 | Day surgery (SDC) | payer OTHER, SELFPAY ==
[2021-09-08] VITALS (8 sets, daily range): BP systolic 113–127; BP diastolic 76–93; PULSE 86–93; RESP 16; TEMP 36–36.6; O2SAT 98–100; BMI 28.0
[2021-09-08] MEDS: Lactated Ringers 1,000 ML 15 ML IV (09:30)
--- NOTE | 2021-09-08 10:26 | PCM.HP.BLA ---
History and Physical Date of Admission: 09/08/21 Intake Intake Visit Reasons: CHRONIC VOMITTING & WEIGHT LOSS Allergies morphine Allergy (Verified 08/22/21 11:31) Hives Medications gabapentin 900 mg PO TID 05/18/18 [History Confirmed 08/22/21] metformin 1,000 mg PO DAILY 05/18/18 [History Confirmed 08/22/21] indomethacin 75 mg PO TID 05/03/20 [History Confirmed 08/22/21] pantoprazole 40 mg PO DAILY #30 tab 05/03/20 [Rx Confirmed 08/22/21] glimepiride 1 mg PO DAILY 04/06/21 [History Confirmed 08/22/21] ergocalciferol (vitamin D2) [Vitamin D2] 50,000 unit PO QWEEK 04/27/21 [History Confirmed 08/22/21] ondansetron 4 mg PO Q6H PRN #10 tab 07/07/21 [Rx Confirmed 08/22/21] trazodone 100 mg PO QHS 07/07/21 [History Confirmed 08/22/21] PFSH Medical History Abdominal pain Non-smoker Surgical History Gastric bypass status for obesity Hx of section Social History Smoking Status: Never smoker HPI HPI Details: ZAN HANKS, is a 41 F who presents to the office today for Has been having issues for the last year that have been progressing. Symptoms include stomach upset with PO intake, vomiting with blood on two occasions the same weekend (father during this time), vomiting now happening once or twice a month that progressed to daily. She has had to stop working due to symptoms. Weight loss of 50lbs since onset. Has seen other GI doctors but was not happy with the service. EGD performed with ulcer found - conflicting information whether it was new or old. No colonoscopy performed. Previous GI said it was marijuana use. She does not have a history of marijuana use. Medications used include promethazine and zofran. ROS Const Constitutional: Positive for fatigue, headache(s) and weight change ENT ENT: Positive for ear or mastoid pain, ear discharge, hearing loss, tinnitus and headache(s) Cardio Cardiology: Positive for shortness of breath Gastro GI: Positive for abdominal pain, diarrhea, heartburn, nausea/dyspepsia and vomiting Musc Musculoskeletal: Positive for muscle weakness Neuro Neurology: Positive for headache(s) Endo Endocrine: Positive for fatigue and weight change Quality Reporting Tobacco Screening ([facility] 138) Smoking Status: Never smoker Assessment and Plan Assessment and Plan (1) Abdominal pain: Status: Acute Plan - Dr. Massey Friend, DO: We will evaluate her upper and lower GI tract for any abnormalities associated with her previous gastric bypass. We will use a pediatric colonoscope to evaluate all way down to the jejunal jejunal anastomosis. Also evaluate her colon for any abnormalities that could be attributing to her pain. I have re-examined the patient. There are no clinical changes since date of exam.
--- NOTE | 2021-09-08 10:30 | COLBX_PTH ---
PATIENT: KAILA HANKS LOC: EN U#:[id number] AGE/SX: 41/F ROOM: RE09/08/[address]: Dr. Bryson Lombardo DO : 1980 BED: DIS: 09/08/2021 SPEC #: [id number] RECD: 09/08/21 12:38 STATUS: MEET [place] #: [id number] RONA: 09/08/21 10:[address]: Bryson Lombardo DEPT: SURGICAL PATHOLOGY RECD BY: Kaila Couch ENTERED: 09/08/21 13:05 SP TYPE: COLON BX CYNTHIA DR: Dr. Juan Manuel Mirza MD Tissues: A - Jejunum, NOS B - COLON BIOPSY C - Ileum, NOS D - COLON BIOPSY Procedures: Surgery Specimen Level IV HEADER OPERATION: Colonoscopy, EGD ([facility] [place]) PRE-OP DIAGNOSIS: Abdominal pain TISSUE SUBMITTED: A ? Jejunum biopsy, B ? Anastomosis biopsy, C ? Terminal ileum biopsy, D ? Random colon biopsy MICROSCOPIC DIAGNOSIS A. Jejunum, biopsy: No pathologic change. B. Anastomosis, biopsy: Mild glandular architectural change and minimal nonspecific chronic inflammation. C. Terminal ileum, biopsy: Benign lymphoid aggregates. D. Colon, random biopsy: No pathologic change. AM:thais 09/09/2021 MICROSCOPIC DESCRIPTION Slides are reviewed. GROSS DESCRIPTION A - Received in fixative is one container labeled with the patient's name and designated jejunum biopsy. The specimen consists of multiple irregular fragments of light briones soft tissue that in aggregate measure 0.6 x 0.4 x 0.1 cm. The specimen is totally submitted in one cassette. B - Received in fixative is one container labeled with the patient's name and designated anastomosis biopsy. The specimen consists of multiple irregular fragments of light briones soft tissue that in aggregate measure 1 x 0.2 x 0.1 cm. The specimen is totally submitted in one cassette. C - Received in fixative is one container labeled with the patient's name and designated terminal ileum biopsy. The specimen consists of multiple irregular fragments of light briones soft tissue that in aggregate measure 0.6 x 0.6 x 0.1 cm. The specimen is totally submitted in one cassette. D - Received in fixative is one container labeled with the patient's name and designated random colon biopsy. The specimen consists of multiple irregular fragments of light briones soft tissue that in aggregate measure 2.5 x 0.5 x 0.1 cm. The specimen is totally submitted in one cassette. / SJ:thais 09/08/21 TC:3 CPT: 25465 x4
--- NOTE | 2021-09-08 10:49 | OP.CCLET_ITS ---
06/23/2022 Juan Manuel Mirza Re : Upper GI endoscopy procedure for Kaila Salcedo Dear Yuki This procedure was performed on August. My impressions and recommendations are as follows: Impressions : - Normal esophagus. - Small hiatal hernia. - Aliza-en-Y gastrojejunostomy with gastrojejunal anastomosis characterized by edema and erythema. Biopsied. - Suspected jejunal inflammation characterized by congestion (edema). Biopsied. Recommendations : - Discharge patient to home. - Resume previous diet. - Use misoprostol 200 micrograms PO QID for 6 weeks. - Continue present medications. My findings are described in the full procedure note, which is enclosed. If I can be of further assistance, please feel free to contact me at . Sincerely, Bryson Friend, 09/08/2021 10:48:35 AM This report has been signed electronically.
--- NOTE | 2021-09-08 10:49 | OP.EGD_ITS ---
Patient Name: Kaila Salcedo Procedure Date: 09/08/2021 10:23 AM Date of : 1980 Age: 41 Procedure: Upper GI endoscopy Indications: Epigastric abdominal pain Providers: Bryson Lombardo DO Medicines: See the Anesthesia note for documentation of the administered medications Patient Profile: This is a 41 year old female. Refer to note in patient chart for documentation of history and physical. Patient has symptoms of acute abdominal cramping and acute epigastric abdominal pain. She is status post laparoscopic gastric bypass within the past several years. Complications: No immediate complications. Procedure: Pre-Anesthesia Assessment: - Prior to the procedure, a History and Physical was performed, and patient medications and allergies were reviewed. The patient is competent. The risks and benefits of the procedure and the sedation options and risks were discussed with the patient. All questions were answered and informed consent was obtained. Patient identification and proposed procedure were verified by the physician in the pre-procedure area. Mental Status Examination: alert and oriented. Airway Examination: normal oropharyngeal airway and neck mobility. Respiratory Examination: clear to auscultation. CV Examination: normal. Prophylactic Antibiotics: The patient does not require prophylactic antibiotics. Prior Anticoagulants: The patient has taken no previous anticoagulant or antiplatelet agents. ASA Grade Assessment: II - A patient with mild systemic disease. After reviewing the risks and benefits, the patient was deemed in satisfactory condition to undergo the procedure. The anesthesia plan was to use moderate sedation / analgesia (conscious sedation). Immediately prior to administration of medications, the patient was re-assessed for adequacy to receive sedatives. The heart rate, respiratory rate, oxygen saturations, blood pressure, adequacy of pulmonary ventilation, and response to care were monitored throughout the procedure. The physical status of the patient was re-assessed after the procedure. After obtaining informed consent, the endoscope was passed under direct vision. Throughout the procedure, the patient's blood pressure, pulse, and oxygen saturations were monitored continuously. The Endoscope was introduced through the mouth, and advanced to the second part of duodenum. The upper GI endoscopy was accomplished without difficulty. The patient tolerated the procedure well. Moderate Sedation: Moderate (conscious) sedation was administered by the endoscopy nurse and supervised by the endoscopist. The patient's oxygen saturation, heart rate, blood pressure and response to care were monitored. Total physician intraservice time was 15 minutes. Scope In: 10:34:39 AM Scope Out: 10:43:19 AM Total Procedure Duration Time 0 hours 8 minutes 40 seconds Findings: The examined esophagus was normal. A small hiatal hernia was present. Evidence of a Aliza-en-Y gastrojejunostomy was found. The gastrojejunal anastomosis was characterized by edema and erythema. The pmgripdh-vg-zohebyx limb was examined 57 cm from incisors. Biopsies were taken with a cold forceps for histology. Verification of patient identification for the specimen was done. Estimated blood loss was minimal. Localized mild inflammation, characterized by congestion (edema) was found in the jejunum. Biopsies were taken with a cold forceps for histology. Verification of patient identification for the specimen was done. Estimated blood loss was minimal. Impression: - Normal esophagus. - Small hiatal hernia. - Aliza-en-Y gastrojejunostomy with gastrojejunal anastomosis characterized by edema and erythema. Biopsied. - Suspected jejunal inflammation characterized by congestion (edema). Biopsied. Recommendation: - Discharge patient to home. - Resume previous diet. - Use misoprostol 200 micrograms PO QID for 6 weeks. - Continue present medications. Procedure Code(s): --- Professional --- 86579, Esophagogastroduodenoscopy, flexible, transoral; with biopsy, single or multiple G0500, Moderate sedation services provided by the same physician or other qualified health healthcare translator performing a gastrointestinal endoscopic service that sedation supports, requiring the presence of an independent trained observer to assist in the monitoring of the patient's level of consciousness and physiological status; initial 15 minutes of intra-service time; patient age 5 years or older (additional time may be reported with 00978, as appropriate) CPT copyright 2017 [employer]. All rights reserved. The codes documented in this report are preliminary and upon activities volunteer review may be revised to meet current compliance requirements. Bryson Lombardo DO 09/08/2021 10:48:35 AM This report has been signed electronically. Number of Addenda: 1 Note Initiated On: 09/08/2021 10:23 AM Addendum Number: 1 Addendum Date: 06/23/2022 6:28:04 AM MAC was used instead of moderate sedation for this patient. Bryson Lombardo DO 06/23/2022 6:28:11 AM This report has been signed electronically.
--- NOTE | 2021-09-08 11:20 | OP.COLON_ITS ---
Patient Name: Kaila Salcedo Procedure Date: 09/08/2021 10:45 AM Date of : 1980 Age: 41 Procedure: Colonoscopy Indications: This is the patient's first colonoscopy, Chronic diarrhea, Clinically significant diarrhea of unexplained origin Providers: Bryson Lombardo DO Medicines: General Anesthesia Patient Profile: This is a 41 year old female. Refer to note in patient chart for documentation of history and physical. Patient has symptoms of acute abdominal cramping and acute epigastric abdominal pain. She is status post laparoscopic gastric bypass within the past several years. Patient has symptoms of chronic abdominal cramping, chronic diarrhea and acute vomiting. Last Colonoscopy: none. The patient's first colonoscopy is today. Complications: No immediate complications. Procedure: Pre-Anesthesia Assessment: - Prior to the procedure, a History and Physical was performed, and patient medications and allergies were reviewed. The patient is competent. The risks and benefits of the procedure and the sedation options and risks were discussed with the patient. All questions were answered and informed consent was obtained. Patient identification and proposed procedure were verified by the physician in the pre-procedure area. Mental Status Examination: alert and oriented. Airway Examination: normal oropharyngeal airway and neck mobility. Respiratory Examination: clear to auscultation. CV Examination: normal. Prophylactic Antibiotics: The patient does not require prophylactic antibiotics. Prior Anticoagulants: The patient has taken no previous anticoagulant or antiplatelet agents. ASA Grade Assessment: II - A patient with mild systemic disease. After reviewing the risks and benefits, the patient was deemed in satisfactory condition to undergo the procedure. The anesthesia plan was to use moderate sedation / analgesia (conscious sedation). Immediately prior to administration of medications, the patient was re-assessed for adequacy to receive sedatives. The heart rate, respiratory rate, oxygen saturations, blood pressure, adequacy of pulmonary ventilation, and response to care were monitored throughout the procedure. The physical status of the patient was re-assessed after the procedure. After I obtained informed consent, the scope was passed under direct vision. Throughout the procedure, the patient's blood pressure, pulse, and oxygen saturations were monitored continuously. The Colonoscope was introduced through the anus and advanced to the cecum, identified by appendiceal orifice and ileocecal valve. The colonoscopy was performed without difficulty. The patient tolerated the procedure well. The quality of the bowel preparation was good. Moderate Sedation: Moderate (conscious) sedation was administered by the endoscopy nurse and supervised by the endoscopist. The patient's oxygen saturation, heart rate, blood pressure and response to care were monitored. Total physician intraservice time was 15 minutes. Scope In: 10:50:41 AM Scope Withdrawal Time 0 hours 10 minutes 46 seconds Scope Out: 11:11:25 AM Total Procedure Duration Time 0 hours 20 minutes 44 seconds Findings: The perianal and digital rectal examinations were normal. A few small-mouthed diverticula were found in the sigmoid colon and descending colon. There was evidence of diverticular spasm. An area of moderately congested mucosa was found in the sigmoid colon. This was biopsied with a cold forceps for histology. Verification of patient identification for the specimen was done. Estimated blood loss was minimal. A patchy area of the distal ileum was congested. Biopsies were taken with a cold forceps for histology. Verification of patient identification for the specimen was done. Estimated blood loss was minimal. Impression: - Moderate diverticulosis in the sigmoid colon and in the descending colon. There was evidence of diverticular spasm. - Congested mucosa in the sigmoid colon. Biopsied. - Congested mucosa in the distal ileum. Biopsied. Recommendation: - Discharge patient to home. - Resume previous diet. - Continue present medications. - Await pathology results. - Repeat colonoscopy in 5 years for surveillance. - Return to GI office in 2 weeks. Procedure Code(s): --- Professional --- 22221, Colonoscopy, flexible; with biopsy, single or multiple G0500, Moderate sedation services provided by the same physician or other qualified health palliative care physician performing a gastrointestinal endoscopic service that sedation supports, requiring the presence of an independent trained observer to assist in the monitoring of the patient's level of consciousness and physiological status; initial 15 minutes of intra-service time; patient age 5 years or older (additional time may be reported with 35313, as appropriate) CPT copyright 2017 [employer]. All rights reserved. The codes documented in this report are preliminary and upon united states marshal review may be revised to meet current compliance requirements. Bryson Lombardo DO 09/08/2021 11:20:23 AM This report has been signed electronically. Number of Addenda: 1 Note Initiated On: 09/08/2021 10:45 AM Addendum Number: 1 Addendum Date: 06/23/2022 6:28:22 AM MAC was used instead of moderate sedation for this patient. Bryson Lombardo DO 06/23/2022 6:28:27 AM This report has been signed electronically.
--- NOTE | 2021-09-08 11:21 | OP.CCLET_ITS ---
06/23/2022 Juan Manuel Mirza Re : Colonoscopy procedure for Kaila Marquezr Yuki This procedure was performed on August. My impressions and recommendations are as follows: Impressions : - Moderate diverticulosis in the sigmoid colon and in the descending colon. There was evidence of diverticular spasm. - Congested mucosa in the sigmoid colon. Biopsied. - Congested mucosa in the distal ileum. Biopsied. Recommendations : - Discharge patient to home. - Resume previous diet. - Continue present medications. - Await pathology results. - Repeat colonoscopy in 5 years for surveillance. - Return to GI office in 2 weeks. My findings are described in the full procedure note, which is enclosed. If I can be of further assistance, please feel free to contact me at . Sincerely, Bryson Friend, 09/08/2021 11:20:23 AM This report has been signed electronically.
[2021-09-08 12:00] LABS: Bedside Glucose 100 mg/dL (70-110)
== END 2021-09-08 12:23 ==
LOC: EN 09:23 → AC 09:25
PROVIDERS: PCP Family Medicine; Referring Provider Family Medicine; Visit Provider Internal Medicine Gastroenterology
PROC: 0DJD8ZZ Inspection of Lower Intestinal Tract, Via Natural or Artificial Opening Endoscopic (ICD-10-PCS; CPT 45378; principal; 2021-09-08 10:25)
DX: K57.30 Diverticulosis of large intestine without perforation or abscess without bleeding (principal); K44.9 Diaphragmatic hernia without obstruction or gangrene; Z98.84 Bariatric surgery status; Z79.84 Long term (current) use of oral hypoglycemic drugs
CPT/HCPCS: 43239; 45380; 82962; 88305; J7120; J2405

== ENCOUNTER 2023-01-04 05:53 | Day surgery (SDC) | payer OTHER, SELFPAY ==
[2023-01-04] VITALS (8 sets, daily range): BP systolic 115–135; BP diastolic 88–105; PULSE 96–107; RESP 16–18; TEMP 36.2–36.9; O2SAT 90–100; BMI 24.0
--- NOTE | 2023-01-04 | GASB_PTH ---
PATIENT: ZAN HANKS LOC: EN U#:[id number] AGE/SX: 42/F ROOM: RE01/04/[address]: Dr. Bryson Lombardo DO : 1980 BED: DIS: 01/04/2023 SPEC #: [id number] RECD: 01/04/23 11:40 STATUS: MEET BRYAN #: [id number] RONA: 01/04/23 00:[address]: Bryson Lombardo DEPT: SURGICAL PATHOLOGY RECD BY: Dhruv Ritchie ENTERED: 01/04/23 11:40 SP TYPE: Gastric Bx OTHR DR: Dr. Juan Manuel Mirza MD Tissues: Gastric mucous membrane Procedures: Surgery Specimen Level IV HEADER OPERATION: [place] [place] PRE-OP DIAGNOSIS: Nausea, vomiting, abdominal pain, constipation TISSUE SUBMITTED: Anastomotic ulcer biopsy MICROSCOPIC DIAGNOSIS Anastomotic ulcer, biopsy: Gastroenteric mucosal biopsy with mild chronic inflammation. AM:thais 01/05/2023 MICROSCOPIC DESCRIPTION Slides are reviewed. GROSS DESCRIPTION Received in fixative is one container labeled with the patient's name and designated biopsy anastomotic ulcer. The specimen consists of two irregular fragments of light briones soft tissue that in aggregate measure 0.6 x 0.3 x 0.1 cm. The specimen is totally submitted in one cassette. / SJ:thais 01/04/2023 TC:3 CPT: 25695
[2023-01-04] MEDS: Lactated Ringers 1,000 ML 15 ML IV ×2 (06:33→07:47)
[2023-01-04 06:55] LABS: Bedside Glucose 100 mg/dL (74-106)
--- NOTE | 2023-01-04 07:00 | PCM.HP.BLA ---
History and Physical Date of Admission: 01/04/23 42 F who presents to the office today for 6 month f/u hx anastomotic ulcer in upper GI tract, chronic nausea and vomiting. At her last appt she was feeling well; she finally had control of chronic nausea and vomiting which had bothered her for more than a year. Today she reports that her symptoms flared before Thanksgiving 2021, when she was found to be anemic again. She was then started on PO iron BID. Meat is getting stuck in lower esophagus, this also occurred right after she had gastric bypass, sometimes having to vomit to remove the food that is stuck. Now having constipation, never been like this before. No relief with stool softener. Only having BM 1-2x per week, Type I on [place] stool scale. No melena or hematochezia. Scopolamine patch minimizes nausea & vomiting. Vomited daily in September, after every meal.? She has a hx of gastric bypass. Has required iron infusions in the past due to poor absorption of iron. The anastomotic ulcer was possibly due to chronic NSAID use; she is on 3 times daily indomethacin for headaches. EGD and colonoscopy performed 09.08.21 finding a small hiatal hernia, jejunal inflammation, anastomotic ulcer, diverticulosis in sigmoid and descending colon with evidence of diverticular spasm, inflammation of sigmoid colon and distal ileum with lymphoid aggregates. ROS Const Constitutional: Positive for fatigue, headache(s), weakness and weight change ENT ENT: Positive for headache(s); No difficulty swallowing Cardio Cardiology: Positive for leg pain with exertion Gastro GI: Positive for abdominal pain, change in bowel habits, constipation, heartburn, nausea/dyspepsia and vomiting; No belching, bloating, change in stool character, coffee ground emesis, cramping, diarrhea, difficulty swallowing, feeling full early, excessive flatus, incontinent of stools, Vomiting blood/hematemesis, Blood in stool, loose stools, Black,tarry stools, pain with swallowing or other Musc Musculoskeletal: Positive for joint pain, muscle weakness and leg pain with exertion Skin Skin: No yellowing of the eye or itchy eyes Neuro Neurology: Positive for weakness and headache(s) Psych Psychiatric: No anxiety and No depression Endo Endocrine: Positive for fatigue and weight change Aller/Imm Allergy/Immunologic: No itchy eyes Esteban/Lymp Hematologic/Lymphatic: No easy bleeding or easy bruising Exam Const General: cooperative, healthy appearing and comfortable Nutritional Appearance: average body habitus Orientation: alert, awake and oriented x3 HENMT Head: normal to inspection Eyes Sclera: sclerae normal Resp Effort & Inspection: normal respiratory effort GI Inspection: normal to inspection Palpation: soft, no hepatosplenomegaly, no masses and nontender Quality Reporting Tobacco Screening (CMS 138) Smoking Status: Never smoker Assessment and Plan Assessment and Plan (1) Nausea & vomiting: ?Status:?Acute ?Plan: 42 yr old female with return of chronic nausea and vomiting Continue scopolamine patch UGI with SBFT She will talk to PCP about iron infusions instead of PO iron Will get labs from [facility] re anemia Treat constipation--miralax, prune juice, oil (olive, mineral or castor) Will check on pt in a week Schedule EGD because of dysphagia, recurrence of nausea and vomiting, anemia (2) Abdominal pain: ?Status:?Acute ?Plan: as above (3) Constipation: ?Status:?Acute ?Plan: secondary to po iron ? ? ? Orders: Orders Upper GI/w Small Bowel 10/30/22 R10.9 - Unspecified abdominal pain, R11.2 - Nausea with vomiting, unspecified ? Medications: New misoprostol 200 mcg? PO QPCHS 120 tabs 0RF ? ? I have examined the patient and the H&P has been reviewed. There are no clinical changes since date of exam.
--- NOTE | 2023-01-04 07:42 | OP.CCLET_ITS ---
01/04/2023 Juan Manuel Mirza Re : Upper GI endoscopy procedure for Kaila Marquezr Yuki This procedure was performed on December. My impressions and recommendations are as follows: Impressions : - Moderate Schatzki ring. Dilated. - Gastric bypass with a normal-sized pouch and intact staple line. Gastrojejunal anastomosis characterized by ulceration. Biopsied. Treated with argon plasma coagulation (APC). - Normal examined jejunum. Recommendations : - Discharge patient to home. - Resume previous diet. - Continue present medications. - Await pathology results. My findings are described in the full procedure note, which is enclosed. If I can be of further assistance, please feel free to contact me at . Sincerely, Bryson Lombardo, 01/04/2023 7:42:20 AM This report has been signed electronically.
--- NOTE | 2023-01-04 07:42 | OP.EGD_ITS ---
Patient Name: Kaila Salcedo Procedure Date: 01/04/2023 7:03 AM Date of : 1980 Age: 42 Procedure: Upper GI endoscopy Indications: Epigastric abdominal pain, Dysphagia Providers: Bryson Lombardo DO Referring MD: Bryson Lombardo DO Medicines: Monitored Anesthesia Care Patient Profile: This is a 42 year old female. Refer to note in patient chart for documentation of history and physical. Patient has symptoms of acute abdominal cramping, acute epigastric abdominal pain, acute dyspepsia and acute vomiting. She is status post laparoscopic gastric bypass in the distant past. Complications: No immediate complications. Procedure: Pre-Anesthesia Assessment: - Prior to the procedure, a History and Physical was performed, and patient medications and allergies were reviewed. The risks and benefits of the procedure and the sedation options and risks were discussed with the patient. All questions were answered and informed consent was obtained. Patient identification and proposed procedure were verified by the physician in the pre-procedure area. Mental Status Examination: normal. Prophylactic Antibiotics: The patient does not require prophylactic antibiotics. Prior Anticoagulants: The patient has taken no previous anticoagulant or antiplatelet agents. ASA Grade Assessment: II - A patient with mild systemic disease. After reviewing the risks and benefits, the patient was deemed in satisfactory condition to undergo the procedure. The anesthesia plan was to use monitored anesthesia care (MAC). Immediately prior to administration of medications, the patient was re-assessed for adequacy to receive sedatives. The heart rate, respiratory rate, oxygen saturations, blood pressure, adequacy of pulmonary ventilation, and response to care were monitored throughout the procedure. The physical status of the patient was re-assessed after the procedure. After obtaining informed consent, the endoscope was passed under direct vision. Throughout the procedure, the patient's blood pressure, pulse, and oxygen saturations were monitored continuously. The Endoscope was introduced through the mouth, and advanced to the second part of duodenum. The upper GI endoscopy was accomplished without difficulty. The patient tolerated the procedure well. Scope In: 7:11:24 AM Scope Out: 7:25:23 AM Total Procedure Duration Time 0 hours 13 minutes 59 seconds Findings: A moderate Schatzki ring was found in the lower third of the esophagus. A guidewire was placed and the scope was withdrawn. Dilation was performed with a Savary dilator with no resistance at 45 Fr. The dilation site was examined and showed moderate improvement in luminal narrowing. Estimated blood loss was minimal. Evidence of a gastric bypass was found. A gastric pouch with a normal size was found. The staple line appeared intact. The gastrojejunal anastomosis was characterized by ulceration. This was traversed. The flcah-na-tnoqqxl limb was characterized by a hemorrhagic appearance and ulceration. The jejunojejunal anastomosis was characterized by healthy appearing mucosa. The yuoqndnr-oh-lxcxego limb was not examined as it could not be found. Biopsies were taken with a cold forceps for histology. Verification of patient identification for the specimen was done. Coagulation for hemostasis using argon plasma at 0.3 liters/minute and 20 gee was successful. Estimated blood loss was minimal. The examined jejunum was normal. Impression: - Moderate Schatzki ring. Dilated. - Gastric bypass with a normal-sized pouch and intact staple line. Gastrojejunal anastomosis characterized by ulceration. Biopsied. Treated with argon plasma coagulation (APC). - Normal examined jejunum. Recommendation: - Discharge patient to home. - Resume previous diet. - Continue present medications. - Await pathology results. Procedure Code(s): --- Professional --- 36922, 59, Esophagogastroduodenoscopy, flexible, transoral; with control of bleeding, any method 29702, Esophagogastroduodenoscopy, flexible, transoral; with insertion of guide wire followed by passage of dilator(s) through esophagus over guide wire 52449, 59, Esophagogastroduodenoscopy, flexible, transoral; with biopsy, single or multiple CPT copyright 2017 [employer]. All rights reserved. The codes documented in this report are preliminary and upon tobacco drying machine operator review may be revised to meet current compliance requirements. Bryson Lombardo DO 01/04/2023 7:42:20 AM This report has been signed electronically. Number of Addenda: 0 Note Initiated On: 01/04/2023 7:03 AM
== END 2023-01-04 08:23 | disposition home or self-care (01) ==
LOC: EN 05:53 → AC 05:55
PROVIDERS: PCP Family Medicine; Referring Provider Internal Medicine Gastroenterology; Visit Provider Internal Medicine Gastroenterology
PROC: 0DJ08ZZ Inspection of Upper Intestinal Tract, Via Natural or Artificial Opening Endoscopic (ICD-10-PCS; CPT 43235; principal; 2023-01-04 06:55)
DX: R11.2 Nausea with vomiting, unspecified (principal); R13.10 Dysphagia, unspecified; R10.9 Unspecified abdominal pain; D64.9 Anemia, unspecified; K59.00 Constipation, unspecified; Z98.84 Bariatric surgery status
CPT/HCPCS: 43248; 43239; 43255; 82962; 88305; J7120; J2405

== ENCOUNTER 2023-01-10 10:55 | Outpatient (CLI) | payer OTHER, SELFPAY ==
[2023-01-10 11:13] VITALS: BP 118/92; PULSE 103; RESP 16; TEMP 35.7; O2SAT 97; BMI 22.8
[2023-01-10] MEDS: 0.9% Normal Saline 1,000 ML 999 ML IV (11:23)
[2023-01-10 12:50] VITALS: BP 151/112; PULSE 104; RESP 16; TEMP 35.8; O2SAT 100
== END 2023-01-10 23:59 | disposition home or self-care (01) ==
LOC: MEDOUTP 10:56
PROVIDERS: PCP Family Medicine; Referring Provider Internal Medicine Gastroenterology; Visit Provider Internal Medicine Gastroenterology
DX: E86.0 Dehydration (principal)
CPT/HCPCS: 96360; J7030

== ENCOUNTER → 2023-01-17 | Outpatient (CLI) | payer OTHER, SELFPAY ==
--- NOTE | 2023-01-17 16:31 | RAD_ITS ---
INDICATION: NG tube placement check EXAMINATION/TECHNIQUE: X-RAY - XR Abdomen 1 View COMPARISON: Chest radiograph on same day FINDINGS: BOWEL GAS PATTERN: Enteric tube projects subdiaphragmatic in the stomach. Nonspecific non-obstructive bowel gas pattern. No focal stomach or bowel distention. Large colonic stool burden from cecum to rectum. Left upper abdominal surgical clips. FREE AIR: Not well assessed on a supine view. ORGANOMEGALY: Not seen. CALCIFICATIONS: Right pelvic phleboliths.. BONES AND SOFT TISSUES: No acute pathology. Mild right hip joint space narrowing. RAD/Abdomen Single View IMPRESSION: Enteric tube projects subdiaphragmatic within the stomach. Large colonic stool burden as can be seen with constipation. Electronically Signed: Siva Greene MD at 18:34 EDT ,
--- NOTE | 2023-01-17 16:40 | RAD_ITS ---
INDICATION: NG tube placement check EXAMINATION/TECHNIQUE: X-RAY - XR Chest 1 View COMPARISON: Abdominal radiograph on same day. FINDINGS: LINES/DEVICES: Enteric tube projects subdiaphragmatic within the stomach. Proximal portion of the tube appears to project over the right chest.. LUNGS: No consolidation, edema or effusion. No pneumothorax. MEDIASTINUM AND CARDIOVASCULAR STRUCTURES: Cardiac silhouette not enlarged. BONES AND SOFT TISSUES: Unremarkable. RAD/Chest 1 View IMPRESSION: No radiographic evidence of acute cardiopulmonary disease. Enteric tube projects subdiaphragmatic within the stomach. Electronically Signed: Siva Greene MD at 18:31 EDT ,
== END | disposition home or self-care (01) ==
LOC: RAD 16:29
PROVIDERS: PCP Family Medicine; Referring Provider Internal Medicine Gastroenterology; Visit Provider Internal Medicine Gastroenterology
DX: R10.9 Unspecified abdominal pain (principal)
CPT/HCPCS: 71045; 74018

== ENCOUNTER → 2023-02-02 | Outpatient (CLI) | payer OTHER, SELFPAY ==
[2023-02-02 10:57] LABS: Magnesium 2.3 mg/dL (1.6-2.6); Phosphorus 4.6 mg/dL (2.5-4.9)
== END | disposition home or self-care (01) ==
LOC: LAB 09:50
PROVIDERS: PCP Family Medicine; Referring Provider Internal Medicine Gastroenterology; Visit Provider Internal Medicine Gastroenterology
DX: R11.2 Nausea with vomiting, unspecified (principal)
CPT/HCPCS: 36415; 83735; 84100

== ENCOUNTER 2023-02-08 13:11 | Emergency (ER) | payer OTHER, SELFPAY ==
[2023-02-08 13:12] VITALS: BP 162/105; PULSE 112; RESP 16; TEMP 36.6; O2SAT 98; BMI 23.3
[2023-02-08 13:20] VITALS: RESP 28
--- NOTE | 2023-02-08 13:31 | EKG12_ITS ---
Test Reason : CP Blood Pressure : / mmHG Vent. Rate : 098 BPM Atrial Rate : 098 BPM P-R Int : 174 ms QRS Dur : 084 ms QT Int : 340 ms P-R-T Axes : 065 067 069 degrees QTc Int : 434 ms Normal sinus rhythm Normal ECG When compared with ECG of 27-APR-2021 16:46, No significant change was found Confirmed by MANAN LANDAVERDE, KIKA ([id number]), website/blog editor NEELIMA MONTOYA ([id number]) on 02/13/2023 10:46:59 AM Referred By: Rich Olivares Confirmed By:KIKA HINKLE MD
--- NOTE | 2023-02-08 13:33 | ED.VIS.CHEST ---
HPI History of Present Illness Chief Complaint: Chest Pain Narrative Narrative: 42-year-old female with complicated medical history ranging from diabetes, status post gastric bypass surgery in 2009, developed anastomotic ulcers for which she needed a feeding tube placed 2 to 3 weeks ago to help the ulcers heal. She still is able to have oral intake, but presents mainly with intermittent racing heartbeats and palpitations, and elevated blood pressure. She complains of burning in her chest that started this morning also. She states her heart rate was as high as 170 at home, then it would calm down. She has diffuse burning throughout her chest that will not stop. She feels that when her heart rate increases, she feels that is going to beat out of her chest. She is nauseated but has not vomited. states that prior to getting the NG tube/Dobbhoff that she was severely dehydrated. She denies any leg swelling or other symptoms. No exacerbating or alleviating factors. [facility] Medical History Abdominal pain Anastomotic ulcer Anemia Back pain Cardiology follow-up encounter Gastric reflux Gastric reflux History of echocardiogram History of irregular heartbeat History of ulceration Hypertension Kidney stones Migraine headache Nausea & vomiting Non-smoker Syncope Wears glasses Home Medications gabapentin 300 mg capsule 900 mg PO TID 05/18/18 [History Last Taken Unknown] trazodone 50 mg tablet 100 mg PO QHS 07/07/21 [History Last Taken Unknown] dulaglutide 0.75 mg/0.5 mL subcutaneous pen injector (Trulicity) 0.75 mg subcut QWEEK 05/02/22 [History Last Taken Unknown] indomethacin 75 mg capsule,extended release 75 mg PO TID 05/02/22 [History Last Taken Unknown] scopolamine base 1 mg over 3 days transdermal patch 1 patch transdermal Q3D PRN nausea and vomiting #24 ea 05/02/22 [Rx Last Taken Unknown] pantoprazole 40 mg tablet,delayed release See Rx Instructions .Route .COMPLEX #90 tabs 07/18/22 [Rx Last Taken Unknown] cyclobenzaprine 10 mg tablet 10 mg PO TID PRN MUSCLE SPASMS 12/28/22 [History Last Taken Unknown] hydrocodone 7.5 mg-acetaminophen 325 mg tablet 1 tab PO Q8H PRN Pain 12/28/22 [History Last Taken 01/04/23 05:30] ondansetron HCl 4 mg tablet 4 mg PO Q6H PRN Nausea 12/28/22 [History Last Taken Unknown] MAGIC MOUTH WASH (BMX) 180 mL suspension 20 ml PO TID #180 mL 01/05/23 [Rx Last Taken Unknown] sodium chloride 0.9 % See Rx Instructions .Route .COMPLEX #1,000 mL 01/08/23 [Rx Last Taken Unknown] sucralfate 100 mg/mL oral suspension (Carafate) 10 ml PO QAC #1,000 mL 01/08/23 [Rx Last Taken Unknown] metoclopramide HCl 5 mg tablet (Reglan) 5 mg PO QACHS #120 tabs 01/11/23 [Rx Last Taken Unknown] lubiprostone 8 mcg capsule 24 mcg PO BID #60 caps 01/30/23 [Rx Last Taken Unknown] Allergy/AdvReac Type Severity Reaction Status Date / Time codeine Allergy Other Verified 02/08/23 13:14 morphine Allergy Hives Verified 02/08/23 13:14 Surgical History Gastric bypass status for obesity History of surgery Hx of section Hx of colonoscopy Hx of tubal ligation Social History Smoking Status: Never smoker ROS ROS ED ROS Narrative Constitutional: No fever, no chills. HEENT: No sore throat. No neck pain. No loss of vision. No rhinorrhea. Cardiovascular: Burning chest pain. Positive palpitations, racing heartbeat. No pedal edema. Respiratory: No cough, no shortness of breath. Abdominal: No abdominal pain. Positive nausea. No vomiting. Genitourinary: No dysuria. No hematuria. Musculoskeletal: No myalgias. No arthralgias. Neurologic: No headaches. No dizziness. No lightheadedness. Skin: No rash. No change in color. Psychiatric: No depression. No anxiety. EXAM Physical Exam Narrative Exam Narrative: Afebrile. Vital signs noted. HEENT: Normocephalic. Atraumatic. PERRL, EOMI. Neck soft and supple. No point tenderness or step off. Positive Dobbhoff tube in right nares. Cardiovascular: Regular rate and rhythm with intermittent bouts of tachycardia. No murmurs, rubs, or gallops appreciated. Respiratory: Intermittent tachypnea. Lungs clear to auscultation bilaterally. Gastrointestinal: Abdomen soft, nontender, with normoactive bowel sounds. No rebound or guarding. Neurological: Awake. Alert. Nonfocal, nonlateralizing. Skin: No rash. Normal color. No pallor. Musculoskeletal: No pedal edema. Full range of motion extremities. Const Vital Signs: 02/08/23 13:12 02/08/23 13:20 02/08/23 13:38 Temperature 97.8 F Temperature Source Temporal Pulse Rate 112 H Respiratory Rate 16 28 H Blood Pressure 162/105 H Blood Pressure Mean 124 Pulse Ox 98 Oxygen Delivery Method Room Air Room Air 02/08/23 14:18 Temperature Temperature Source Pulse Rate 84 Respiratory Rate 18 Blood Pressure 154/103 H Blood Pressure Mean 120 Pulse Ox 99 Oxygen Delivery Method Room Air MDM MDM MDM Narrative Medical decision making narrative: Comprehensive work-up was pursued. Patient states that her mother had saddle embolus and had burning chest pain. I will obtain a D-dimer to help rule out pulmonary embolism. In the differential diagnosis is also influenza type burning chest pain versus GERD versus esophageal ulceration. EKG was obtained which demonstrates normal sinus rhythm at 98 bpm without ectopy or acute ST changes. No STEMI. She may also have dehydration so I will check a CMP, she could be anemic but she has not pallor on examination. If she did have a saddle embolus, I would suspect that she would be consistently tachycardic, and additionally she has a normal pulse ox of 98% on room air. I reviewed the patient's laboratory work and she has a normal white count of 10.4, hemoglobin 13.5 with hematocrit 41.2. She is mildly dehydrated with a hyponatremia of 130, normal potassium of 4.5, creatinine normal at 0.85 with slightly elevated BUN of 20. While glucose is elevated at 297, she has a low anion gap of 4, I do not feel she is in a diabetic ketoacidosis. AST normal at 16 with ALT 43. She was bolused IV fluids for her hyponatremia/dehydration. Her initial high-sensitivity troponin is less than 3, and this is also greater than a 6-hour troponin, hence, I do feel that she has a nearly 100% negative predictive value for MACE. Her initial D-dimer was hemolyzed. Redraw does show that it is normal at 0.33, it had been elevated in the past, I do not feel that CTA of the chest is indicated. Chest x-ray interpreted by myself shows no evidence of an acute pneumonia or pneumothorax. I reviewed the radiology report which confirms my independent interpretation, and does shows that the tip of the feeding tube is in the body of the stomach. Her COVID and influenza swabs are negative after review. At this point in time, there may be some anxiety component to this as she intermittently becomes tachycardic and tachypneic. Regardless, I do feel that she can be discharged safely home after IV fluid bolus. She did require simethicone here which she usually takes at home, and a dose of Zofran which she states she also has at home. She will follow-up with her primary care provider and a sofa cover inspector. Return instructions to the emergency department were reviewed. Disposition is discharged home in stable condition. History & Record Review Discussion w/independent historian: Patient Additional record(s) reviewed:: Prior ED visit and Prior labs Lab Data Attestation: I reviewed the patient's lab results. Labs: Laboratory Results - last 24 hr 02/08/23 02/08/23 02/08/23 13:20 13:20 13:20 WBC 10.4 RBC 4.62 Hgb 13.5 Hct 41.2 MCV 89.2 MCH 29.2 MCHC 32.8 RDW Std Deviation 39.1 RDW Coeff of Katelynn 12.0 Plt Count 402 MPV 11.2 Immature Gran % (Auto) 0.800 Neut % (Auto) 65.0 Lymph % (Auto) 22.3 [place] % (Auto) 5.0 Eos % (Auto) 5.6 H Baso % (Auto) 1.3 H Absolute Neuts (auto) 6.8 Absolute Lymphs (auto) 2.32 Nucleated RBC % 0 D-Dimer Quant (PE/DVT) Cancelled Sodium 130 L Potassium 4.5 Chloride 100 Carbon Dioxide 26.0 Anion Gap 4 L BUN 20 H Creatinine 0.85 Estim Creat Clear Calc 84.70 Est GFR (MDRD) Af Amer 95 Est GFR (MDRD) Non-Af 79 BUN/Creatinine Ratio 23.6 H Glucose 297 H Calcium 9.7 Total Bilirubin 0.20 AST 16 ALT 43 Alkaline Phosphatase 145 H Troponin I High Sens < 3 L Total Protein 7.4 Albumin 3.1 L Globulin 4.3 H Albumin/Globulin Ratio 0.7 L 02/08/23 13:50 WBC RBC Hgb Hct MCV MCH MCHC RDW Std Deviation RDW Coeff of Katelynn Plt Count MPV Immature Gran % (Auto) Neut % (Auto) Lymph % (Auto) [place] % (Auto) Eos % (Auto) Baso % (Auto) Absolute Neuts (auto) Absolute Lymphs (auto) Nucleated RBC % D-Dimer Quant (PE/DVT) 0.33 Sodium Potassium Chloride Carbon Dioxide Anion Gap BUN Creatinine Estim Creat Clear Calc Est GFR (MDRD) Af Amer Est GFR (MDRD) Non-Af BUN/Creatinine Ratio Glucose Calcium Total Bilirubin AST ALT Alkaline Phosphatase Troponin I High Sens Total Protein Albumin Globulin Albumin/Globulin Ratio Radiography Diagnostic Testing: Clinical Impression(s) from Imaging Studies Chest X-Ray 02/08/23 13:35 IMPRESSION: The tip of the feeding tube is seen in the body of the stomach. The lungs are clear. Electronically Signed: Lon Pereyra MD at 13:54 EDT , Discharge Plan Triage Chief Complaint: Chest Pain ED Provider: Rich Olivares Dx/Rx/DC Orders Clinical Impression: Chest pain, Burning chest pain, Palpitations, Elevated blood pressure reading Instructions: ED Chest Pain, Uncertain Cause, ED Palpitations Prescriptions: No Action indomethacin 75 mg capsule, extended release 75 mg PO TID Trulicity 0.75 mg/0.5 mL pen injector 0.75 mg subcut QWEEK scopolamine base 1 mg over 3 days patch 3 day 1 patch transdermal Q3D PRN (Reason: nausea and vomiting) Qty: 24 3RF lubiprostone 8 mcg capsule 24 mcg PO BID Qty: 60 3RF gabapentin 300 MG capsule 900 mg PO TID Label Comments: take 3 capsules by mouth at bedtime trazodone 50 mg Tablet 100 mg PO QHS cyclobenzaprine 10 mg Tablet 10 mg PO TID PRN (Reason: MUSCLE SPASMS) ondansetron HCl [Zofran] 4 mg Tablet 4 mg PO Q6H PRN (Reason: Nausea) hydrocodone-acetaminophen 7.5-325 mg Tablet 1 tab PO Q8H PRN (Reason: Pain) pantoprazole 40 mg tablet,delayed release (DR/EC) See Rx Instructions .ROUTE .COMPLEX Qty: 90 3RF Dose Instruction: take 1 tablet by mouth once daily Rx Instructions: take 1 tablet by mouth TWICE daily MAGIC MOUTH WASH (BMX) 180 mL suspension 20 ml PO TID Qty: 180 2RF Rx Instructions: diphenhydramine 12.5 mg/5 mL oral liquid 60 mL; aluminum-mag hydroxide-simethicone 400 mg-400 mg-40 mg/5 mL oral susp 60 mL; Lidocaine Viscous 2 % mucosal solution 60 mL; Per 180 mL sucralfate [Carafate] 100 mg/mL suspension 10 ml PO QAC Qty: 1000 1RF sodium chloride 0.9 % Parenteral Solution See Rx Instructions .ROUTE .COMPLEX Qty: 1000 0RF Rx Instructions: Infuse one liter NACL 0.9% over one hour. Please keep as standing order for PRN infusion 1-2 times a week for dehydration. metoclopramide HCl [Reglan] 5 mg tablet 5 mg PO QACHS Qty: 120 0RF Primary Care Provider: Juan Manuel Mirza Referrals: Juan Manuel Mirza MD [Primary Care Provider] - 3-5 Days if not improving Activity Restrictions/Additional Instructions: Continue your previous medications as directed. Disposition Disposition: Home, Self Care
--- NOTE | 2023-02-08 13:35 | RAD_ITS ---
STUDY: X-RAY CHEST REASON FOR EXAM: Female, 42 years old. Chest pain TECHNIQUE: Single AP portable view of the chest. COMPARISON: Comparison is made with prior study dated January 17, 2023. FINDINGS: A feeding tube is visualized. The tip is in the body of the stomach. EKG electrodes are seen. The lungs are clear and expanded. There is no demonstrated pleural abnormality. Normal size heart. Normal mediastinum and brittni. Normal visualized pulmonary arteries. Normal visualized aortic arch and descending thoracic aorta. Normal visualized thoracic spine. Normal visualized ribs, clavicles, and shoulders. There is no demonstrated abnormality of the visualized soft tissue structures of the upper abdomen. RAD/Chest 1 View (Portable) IMPRESSION: The tip of the feeding tube is seen in the body of the stomach. The lungs are clear. Electronically Signed: Lon Pereyra MD at 13:54 EDT ,
[2023-02-08 13:46] LABS: Absolute Lymphocyte Count 2.32 X10^3/uL (0.83-4.51); Absolute Neutrophil Count 6.8 X10^3/uL (2.0-7.7); Basophil# 0.14 X10^3/uL; Basophil% 1.3 % (0-1); Eosinophil# 0.58 X10^3/uL; Eosinophils% 5.6 % (0-5); Hematocrit 41.2 % (37-47); Hemoglobin 13.5 g/dL (12.0-15.0); Lymphocyte # 2.32 X10^3/ul (0.83-4.51); Lymphocyte % 22.3 % (19-41); Mean Corp Hgb Conc 32.8 g/dL (32-36); Mean Corpuscular Hgb 29.2 pg (27.0-32.0); Mean Corpuscular Volume 89.2 fL (81-99); Mean Platelet Vol. 11.2 fl (6.2-12.0); Monocyte# 0.52 X10^3/uL; NRBC Flagged by Analyzer 0 % (0-5); Neutrophil # 6.77 X10^3/uL (2.7-7.7); Platelet Count 402 K/mm3 (150-450); RBC Distribution Width SD 39.1 fl (35.1-43.9); Red Blood Count 4.62 M/mm3 (4.2-5.4); White Blood Count 10.4 K/mm3 (4.4-11.0)
[2023-02-08 14:09] LABS: ALB/GLOB Ratio 0.7 RATIO (0.9-2.4); AST(SGOT) 16 U/L (15-37); Alanine Aminotransfer ALT/SGPT 43 U/L (13-56); Albumin, Serum 3.1 g/dL (3.2-5.0); Alkaline Phosphatase 145 U/L (45-117); Anion Gap 4 (5-15); BUN 20 mg/dL (7-18); BUN/Creat Ratio 23.6 RATIO (10-20); Calcium,Total 9.7 mg/dL (8.5-10.1); Chloride 100 mmol/L (98-107); Creatinine, Serum 0.85 mg/dL (0.55-1.02); EST Glomerular Filtration Rate 79 mL/min (>60); Est Glom Filt Rate - Afr Amer 95 mL/min (>60); Globulin 4.3 g/dL (2.2-4.2); Glucose 297 mg/dL (74-106); Potassium 4.5 mmol/L (3.5-5.1); Protein, Total 7.4 g/dL (6.4-8.2); Sodium Level 130 mmol/L (136-145); Troponin-I HS (w/2H Reflex) < 3 pg/mL (3.0-54.0)
[2023-02-08 14:10] LABS: D-Dimer Quantitative (DVT/PE) 0.33 FEU/ug/m (0.27-0.49)
[2023-02-08] MEDS: 0.9% Normal Saline 1,000 ML 999 ML IV (14:15)
[2023-02-08 14:18] VITALS: BP 154/103; PULSE 84; RESP 18; O2SAT 99
[2023-02-08] MEDS: Ondansetron 4 MG/2 ML Vial IV (14:34)
[2023-02-08 15:39] LABS: Reflex Troponin-HS? (from REC) Y
== END 2023-02-08 15:12 | disposition home or self-care (01) ==
PROVIDERS: Emergency Provider Emergency Medicine; PCP Family Medicine; Referring Provider Emergency Medicine; Visit Provider Emergency Medicine
DX: R07.9 Chest pain, unspecified (principal); E11.9 Type 2 diabetes mellitus without complications; R00.2 Palpitations; R03.0 Elevated blood-pressure reading, without diagnosis of hypertension; Z97.8 Presence of other specified devices; Z79.85 Long-term (current) use of injectable non-insulin antidiabetic drugs; K21.9 Gastro-esophageal reflux disease without esophagitis; Z79.899 Other long term (current) drug therapy; K28.9 Gastrojejunal ulcer, unspecified as acute or chronic, without hemorrhage or perforation; Z98.84 Bariatric surgery status; E86.0 Dehydration; R11.0 Nausea
CPT/HCPCS: 71045; 80053; 84484; 85025; 85379; 87428; 93005; 99284; J7030; A4216; J2405

== ENCOUNTER 2023-02-10 09:32 | Emergency (ER) | payer OTHER, SELFPAY ==
[2023-02-10 09:33] VITALS: BP 128/98; PULSE 99; RESP 14; TEMP 36.3; O2SAT 100; BMI 23.1
--- NOTE | 2023-02-10 10:05 | CT_ITS ---
STUDY: CT SOFT TISSUE NECK WITH CONTRAST REASON FOR EXAM: Female, 42 years old. Right-sided neck and throat pain RADIATION DOSAGE (If Supplied By Facility): CTDIvol = ( 13.65 ) mGy, DLP = ( 402.53 ) mGycm TECHNIQUE: The patient was scanned in a multi-detector CT scanner. High resolution transaxial imaging was performed following intravenous administration of 75 mL of Isovue-370.. Sagittal and coronal images were reconstructed. Individualized dose optimization techniques were used for this CT. COMPARISON: None. FINDINGS: Normal bilateral parotid glands. Normal bilateral turning sander operator spaces. Normal bilateral parapharyngeal spaces. Normal bilateral carotid spaces. Normal bilateral sublingual and submandibular glands and spaces. Normal visualized nasopharynx. Normal retropharyngeal space. Normal perivertebral space. Normal visualized bilateral faucial tonsils. The visualized tongue, tongue base and oropharynx are normal. The visualized cervical lymph nodes (levels I-) are within normal size limits, and maintain normal morphology. There is no demonstrated solid or cystic mass lesion. There is no abnormal contrast enhancement. Normal epiglottis, bilateral vallecula and hypopharynx. The pre-epiglottic and paraglottic adipose spaces are normal. Normal visualized bilateral piriform sinuses, aryepiglottic folds, vocal cords, and arytenoid-cricoid articulations. Normal subglottic trachea. Normal bilateral lobes of the thyroid gland. Normal visualized pulmonary apices. Normal visualized paranasal sinuses. Normal visualized cervical spine. CT/Soft Tissue Neck WITH Contrast IMPRESSION: Normal enhanced CT examination of the soft tissues of the neck. Electronically Signed: Rich Powell MD at 11:20 EDT ,
--- NOTE | 2023-02-10 10:07 | EDS_ITS ---
HPI HPI - URI History of Present Illness Chief Complaint: Sore Throat Informant: patient and spouse/S.O. Onset/Context/Timing Onset: Days Context: Gradual Onset Timing: Continuous Current Severity: Mild Maximum Severity: Moderate Worsened by: Swallowing Relieved by: - (No relief with NSAIDs, Tylenol or Magic mouthwash or viscous lidocaine.) Narrative Narrative: 42-year-old female history of bleeding stomach ulcers and prior cholesteatoma. She has a history of [id number] diabetes and anemia. She has a NG tube in because when she had the bleeding ulcer she lost 70 pounds unintentionally. She has had prior gastric bypass surgery years ago and lost on and 30 pounds from that. States she was treated for strep throat several weeks ago was on 10 days of amoxicillin that improved. Now she is having pain on the right side of her neck anteriorly. Making it difficult for her to swallow. She denies any fever or chills. She states she has tried both Tylenol and NSAIDs without significant relief of her pain. She tried viscous lidocaine and Magic mouthwash and antifungals again without any significant relief. She said its better in the morning and worse throughout the day. Prior similar symptoms: No Recent Illness/Hospitalization: No ROS ROS ED ROS Narrative Sore throat. Review of Systems ROS Unobtainable: Denies due to encephalopathy Constitutional Constitutional ED: Denies chills or fever(s) Eyes Eyes: Denies blurry vision ENT ENT ED: Reports ear pain and sore throat Cardiovascular Cardiovascular: Denies chest pain Respiratory/Chest Respiratory/Chest: Denies cough or dyspnea Gastrointestinal Gastrointestinal: Denies abdominal pain Genitourinary Genitourinary ED: Denies dysuria or hematuria Musculoskeletal Musculoskeletal: Denies arthralgias Integumentary Denies abscess Neurologic Neurologic: Denies headache(s) Psychiatric Psychiatric: Denies anxiety or depression Endocrine Endocrinology: Denies cold intolerance Hematologic/Lymphatic Hematologic/Lymphatic: Denies easy bleeding Allergic/Immunologic Allergic/Immunologic ED: Denies mouth swelling or tongue swelling [facility] Medical History Abdominal pain Anastomotic ulcer Anemia Back pain Cardiology follow-up encounter Gastric reflux Gastric reflux History of echocardiogram History of irregular heartbeat History of ulceration Hypertension Kidney stones Migraine headache Nausea & vomiting Non-smoker Syncope Wears glasses Home Medications gabapentin 300 mg capsule 900 mg PO TID 07/28/18 [History Last Taken Unknown] trazodone 50 mg tablet 100 mg PO QHS 07/07/21 [History Last Taken Unknown] dulaglutide 0.75 mg/0.5 mL subcutaneous pen injector (Trulicity) 0.75 mg subcut QWEEK 05/02/22 [History Last Taken Unknown] indomethacin 75 mg capsule,extended release 75 mg PO TID 05/02/22 [History Last Taken Unknown] scopolamine base 1 mg over 3 days transdermal patch 1 patch transdermal Q3D PRN nausea and vomiting #24 ea 05/02/22 [Rx Last Taken Unknown] pantoprazole 40 mg tablet,delayed release See Rx Instructions .Route .COMPLEX #90 tabs 07/18/22 [Rx Last Taken Unknown] cyclobenzaprine 10 mg tablet 10 mg PO TID PRN MUSCLE SPASMS 12/28/22 [History Last Taken Unknown] hydrocodone 7.5 mg-acetaminophen 325 mg tablet 1 tab PO Q8H PRN Pain 12/28/22 [History Last Taken 01/04/23 05:30] ondansetron HCl 4 mg tablet 4 mg PO Q6H PRN Nausea 12/28/22 [History Last Taken Unknown] MAGIC MOUTH WASH (BMX) 180 mL suspension 20 ml PO TID #180 mL 01/05/23 [Rx Last Taken Unknown] sodium chloride 0.9 % See Rx Instructions .Route .COMPLEX #1,000 mL 01/08/23 [Rx Last Taken Unknown] sucralfate 100 mg/mL oral suspension (Carafate) 10 ml PO QAC #1,000 mL 01/08/23 [Rx Last Taken Unknown] metoclopramide HCl 5 mg tablet (Reglan) 5 mg PO QACHS #120 tabs 01/11/23 [Rx Last Taken Unknown] lubiprostone 8 mcg capsule 24 mcg PO BID #60 caps 01/30/23 [Rx Last Taken Unknown] lidocaine HCl 2 % mucosal solution (Lidocaine Viscous) 1 applic mucous membrane BID #100 mL 02/09/23 [Rx Last Taken Unknown] nystatin 100,000 unit/mL oral suspension 10 ml PO BID #60 mL 02/09/23 [Rx Last Taken Unknown] oxycodone-acetaminophen 5 mg-325 mg tablet (Percocet) 1 tab PO Q8H PRN pain 4 days #10 tabs 02/10/23 [Rx Last Taken Unknown] Allergy/AdvReac Type Severity Reaction Status Date / Time codeine Allergy Other Verified 02/10/23 09:34 morphine Allergy Hives Verified 02/10/23 09:34 Surgical History Gastric bypass status for obesity History of surgery Hx of section Hx of colonoscopy Hx of tubal ligation Social History Smoking Status: Never smoker EXAM Physical Exam Narrative Exam Narrative: 42-year-old female no acute distress. Vital signs stable afebrile. H EENT exam posterior pharynx normal. No erythema or exudate. No drooling. No stridor. Moist mucous membranes. Left TM normal. Right mildly red. She does have an NG in her right nostril. Neck nontender. Trachea midline. No lymphadenopathy. She points to where the pain is on the right side but is really not reproducible. There is no anterior or posterior lymphadenopathy. Lungs are clear. Heart regular rhythm. Abdomen soft nontender. Moving all 4 extremities. Const Vital Signs: 02/10/23 09:33 Temperature 97.4 F L Temperature Source Temporal Pulse Rate 99 Respiratory Rate 14 Blood Pressure 128/98 H Blood Pressure Mean 108 Pulse Ox 100 Oxygen Delivery Method Room Air Positive well nourished and well developed; Negative for obese, cachectic or contractures General Appearance ED: well developed and NAD; Negative for cachectic, con tractures, cyanotic, diaphoretic or pallor Nutritional Appearance: Negative for cachectic or obese HEENT Reports moist mucous membranes; Denies dry mucous membranes normocephalic and atraumatic; Negative for scalp tenderness Face and Sinus: Negative for sinus tenderness Mouth ED: No dry mucous membranes Mouth: No dry mucous membranes Teeth and Gingiva: Negative for caries Throat: posterior oropharynx normal Eyes PERRL and EOMs intact bilaterally General Eye ED: Negative for pale conjunctiva Neck no lymphadenopathy, supple, no meningeal signs and no JVD General: Negative for anterior neck swelling, lymphadenopathy or other Resp normal respiratory effort and clear to auscultation bilaterally Effort and Inspection: Negative for retractions Auscultation: Negative for rales, rhonchi or wheezes Cardio S1 normal heart sound, S2 normal heart sound and no murmurs Rate: regular rate Rhythm: regular rhythm GI non-tender, non-distended and no masses Inspection: Negative for abdominal distention Auscultation: normoactive bowel sounds Palpation: soft; Negative for tender or guarding Back/Spine no CVA tenderness and normal ROM General Back: Negative for CVA tenderness Cervical Spine: Negative for cervical spine tenderness Thoracic Spine / Upper Back: Negative for thoracic spinal tenderness Lumbar Spine / Lower Back: Negative for lumbar spinal tenderness Sacrum: Negative for tenderness Extremity normal to inspection General Extremety ED: Negative for cyanosis or tenderness General Extremity: Negative for cyanosis Neuro oriented x3 and CN's II-XII intact bilaterally Sensorium / Orientation: alert, oriented to person, oriented to place and oriented to time; Negative for orientation impaired or lethargic Motor Exam: strength 5/5 throughout Psych mental status grossly normal Appearance: Negative for other Attitude: No agitated Mood & Affect: Negative for depressed, anxious or tearful Skin General Skin Exam: Negative for jaundice or pallor Lesions: no lesions Rashes: no rashes Trauma: Negative for abrasion MDM MDM MDM Narrative Medical decision making narrative: Patient with neck pain and trouble swallowing due to that pain. Exam is completely benign. Posterior pharynx appears normal. She does have an NG in and has for weeks due to bleeding ulcer and weight loss. Her right ear is minimally red the left is normal. There is no lymphadenopathy. CT soft tissue neck will be obtained. On physical exam I cannot find anything. She will be given a Percocet for pain. Repeat exam at 11:27 AM. Unchanged. We went over the CAT scan results. CAT scan did not show any acute abnormality. Patient be given limited pain medication and outpatient follow-up. History & Record Review Discussion w/independent historian: Patient and Family Radiography Diagnostic Testing: Clinical Impression(s) from Imaging Studies Soft Tissue Neck CT 02/10/23 10:05 IMPRESSION: Normal enhanced CT examination of the soft tissues of the neck. Electronically Signed: Rcih Powell MD at 11:20 EDT , Discharge Plan Triage Chief Complaint: Sore Throat ED Provider: Darian Howe Dx/Rx/DC Orders Clinical Impression: Throat pain, History of diabetes mellitus, Hx of gastric ulcer Prescriptions: New oxycodone-acetaminophen [Percocet] 5-325 mg tablet 1 tab PO Q8H PRN (Reason: pain) 4 Days Qty: 10 0RF No Action indomethacin 75 mg capsule, extended release 75 mg PO TID Trulicity 0.75 mg/0.5 mL pen injector 0.75 mg subcut QWEEK scopolamine base 1 mg over 3 days patch 3 day 1 patch transdermal Q3D PRN (Reason: nausea and vomiting) Qty: 24 3RF lubiprostone 8 mcg capsule 24 mcg PO BID Qty: 60 3RF gabapentin 300 MG capsule 900 mg PO TID Label Comments: take 3 capsules by mouth at bedtime trazodone 50 mg Tablet 100 mg PO QHS cyclobenzaprine 10 mg Tablet 10 mg PO TID PRN (Reason: MUSCLE SPASMS) ondansetron HCl [Zofran] 4 mg Tablet 4 mg PO Q6H PRN (Reason: Nausea) hydrocodone-acetaminophen 7.5-325 mg Tablet 1 tab PO Q8H PRN (Reason: Pain) pantoprazole 40 mg tablet,delayed release (DR/EC) See Rx Instructions .ROUTE .COMPLEX Qty: 90 3RF Dose Instruction: take 1 tablet by mouth once daily Rx Instructions: take 1 tablet by mouth TWICE daily MAGIC MOUTH WASH (BMX) 180 mL suspension 20 ml PO TID Qty: 180 2RF Rx Instructions: diphenhydramine 12.5 mg/5 mL oral liquid 60 mL; aluminum-mag hydroxide- simethicone 400 mg-400 mg-40 mg/5 mL oral susp 60 mL; Lidocaine Viscous 2 % mucosal solution 60 mL; Per 180 mL sucralfate [Carafate] 100 mg/mL suspension 10 ml PO QAC Qty: 1000 1RF sodium chloride 0.9 % Parenteral Solution See Rx Instructions .ROUTE .COMPLEX Qty: 1000 0RF Rx Instructions: Infuse one liter NACL 0.9% over one hour. Please keep as standing order for PRN infusion 1-2 times a week for dehydration. metoclopramide HCl [Reglan] 5 mg tablet 5 mg PO QACHS Qty: 120 0RF nystatin 100,000 unit/mL suspension 10 ml PO BID Qty: 60 2RF Rx Instructions: swish and swallow 10 mL two times a day lidocaine HCl [Lidocaine Viscous] 2 % solution 1 applic mucous membrane BID Qty: 100 2RF Rx Instructions: swallow 10mL two times a day. Stop magic mouthwash while using this. Primary Care Provider: Juan Manuel Mirza Referrals: Juan Manuel Mirza MD [Primary Care Provider] - As Needed Activity Restrictions/Additional Instructions: CAT scan of your neck and throat showed no acute abnormality. This could be from irritation from the NG tube. Follow-up with your ENT and/or your GI doctor for further evaluation. Limited Percocet for pain. Disposition Disposition: Home, Self Care
[2023-02-10] MEDS: oxyCODONE 5 MG Tablet PO (10:13)
== END 2023-02-10 11:38 | disposition home or self-care (01) ==
PROVIDERS: Emergency Provider Emergency Medicine; PCP Family Medicine; Visit Provider Emergency Medicine
DX: J02.9 Acute pharyngitis, unspecified (principal); E11.9 Type 2 diabetes mellitus without complications; I10 Essential (primary) hypertension; Z87.442 Personal history of urinary calculi; Z98.84 Bariatric surgery status
CPT/HCPCS: 70491; 99284; Q9967; A4216

== ENCOUNTER 2023-05-31 12:31 | Outpatient (CLI) | payer OTHER, SELFPAY ==
[2023-05-31 12:49] VITALS: BP 108/79; PULSE 132; RESP 16; TEMP 36; O2SAT 98; BMI 22.7
[2023-05-31] MEDS: 0.9% Normal Saline 1,000 ML 999 ML IV ×2 (13:50→14:51)
[2023-05-31 16:02] VITALS: BP 117/85; PULSE 120; RESP 16; TEMP 35.9; O2SAT 99
== END 2023-05-31 12:32 | disposition home or self-care (01) ==
LOC: MEDOUTP 12:31
PROVIDERS: PCP Family Medicine; Referring Provider Internal Medicine Gastroenterology; Visit Provider Internal Medicine Gastroenterology
DX: E86.0 Dehydration (principal); R63.4 Abnormal weight loss
CPT/HCPCS: 96360; 96361; J7030

== ENCOUNTER 2023-06-01 08:41 | Inpatient (IN) | payer OTHER, SELFPAY ==
[2023-06-01] VITALS (11 sets, daily range): BP systolic 99–132; BP diastolic 78–91; PULSE 108–125; RESP 13–20; TEMP 36.2–36.6; O2SAT 97–100
--- NOTE | 2023-06-01 09:11 | RAD_ITS ---
STUDY: X-RAY - ACUTE ABDOMINAL SERIES REASON FOR EXAM: Female, 42 years old. Abdominal pain. Bilateral lower extremity swelling. TECHNIQUE: Single view of the chest. Supine, and erect view(s) of the abdomen were obtained. COMPARISON: None. FINDINGS: The lungs are clear and expanded. Normal size heart. Normal mediastinum and brittni. Normal visualized pulmonary arteries. Normal visualized aortic arch and descending thoracic aorta. There is a non-specific bowel gas pattern. Surgical clips are seen in the left upper quadrant. Normal visualized osseous structures. RAD/Acute Abdomen Inc Chest IMPRESSION: Normal x-ray examination of the chest, abdomen, and pelvis. Electronically Signed: Lon Pereyra MD at 10:44 EDT ,
--- NOTE | 2023-06-01 09:12 | EDS_ITS ---
HPI History of Present Illness Chief Complaint: General Illness Informant: patient and spouse/S.O. Narrative Narrative: Patient presents with decreased p.o. intake. Patient had a Aliza-en-Y gastric bypass about 2014. About 3 years ago she started to have problems with nausea and vomiting. She is had multiple evaluations and scopes. This showed ulcer disease. A feeding tube was placed nasogastric about 19 weeks ago. There were evidently concerns that this had been in so long so it was removed about a week week and a half ago. She has an appointment later today for evaluation for a PEG tube. But in the last week week and a half she really cannot keep food down. She has a few bites of solid food. She is trying to get water and low sugar Gatorade in. She just had IV fluids yesterday 2 L as an outpatient. She also complains of bilateral lower extremity swelling. She had an ultrasound on Sunday which she states was negative for DVT. She also complains that she really has not been having bowel movements but did have 1 this morning. No blood. Her abdomen is not distended. She is not really having pain. [facility] Medical History (Updated 06/01/23 @ 17:[address] Gurwinder Collier MD) Abdominal pain Anastomotic ulcer Anemia Back pain Cardiology follow-up encounter Gastric reflux Gastric reflux History of echocardiogram History of irregular heartbeat History of ulceration Hypertension Kidney stones Migraine headache Nausea & vomiting Non-smoker Syncope Wears glasses Home Medications gabapentin 300 mg capsule 900 mg PO TID 05/18/18 [History Last Taken Unknown] dulaglutide 0.75 mg/0.5 mL subcutaneous pen injector (Trulicity) 0.75 mg subcut QWEEK 05/02/22 [History Last Taken Unknown] indomethacin 75 mg capsule,extended release 75 mg PO TID 05/02/22 [History Last Taken Unknown] scopolamine base 1 mg over 3 days transdermal patch 1 patch transdermal Q3D PRN nausea and vomiting #24 ea 05/02/22 [Rx Last Taken Unknown] pantoprazole 40 mg tablet,delayed release See Rx Instructions .Route .COMPLEX #90 tabs 07/18/22 [Rx Last Taken Unknown] cyclobenzaprine 10 mg tablet 10 mg PO TID PRN MUSCLE SPASMS 12/28/22 [History Last Taken Unknown] hydrocodone 7.5 mg-acetaminophen 325 mg tablet 1 tab PO Q8H PRN Pain 12/28/22 [History Last Taken 01/04/23 05:30] ondansetron HCl 4 mg tablet 4 mg PO Q6H PRN Nausea 12/28/22 [History Last Taken Unknown] sodium chloride 0.9 % See Rx Instructions .Route .COMPLEX #1,000 mL 01/08/23 [Rx Last Taken Unknown] lubiprostone 8 mcg capsule 24 mcg (3 x 8 mcg) PO BID #60 caps 01/30/23 [Rx Last Taken Unknown] Allergy/AdvReac Type Severity Reaction Status Date / Time codeine Allergy Other Verified 06/01/23 08:44 morphine Allergy Hives Verified 06/01/23 08:44 Surgical History (Updated 06/01/23 @ 17:[address] Gurwinder Collier MD) Gastric bypass status for obesity History of hysterectomy History of surgery Hx of section Hx of colonoscopy Hx of tubal ligation Social History Smoking Status: Never smoker ROS ROS ED ROS Narrative A complete review of systems was performed and is negative except as documented in the history of present illness. Some specific details below. Constitutional: No recent fevers or chills. EYE: No visual complaints or pain. ENT: No difficulty swallowing. No swelling. No pain. He does complain of a very dry mouth. CV: No chest pain or palpitations. Respiratory: No dyspnea. No hemoptysis. No difficulty taking breaths. GI: Please see history of present illness. : No frequency dysuria or hematuria. Musculoskeletal: No recent trauma. No pains. Skin: No rash. Nondiaphoretic. Neuro: No weakness or numbness. Endocrine: No polyuria or polydipsia. EXAM Physical Exam Narrative Exam Narrative: CONSTITUTIONAL: Patient is nontoxic in appearance. The patient looks comfortable. HEENT: No notable trauma. Mucous membranes do look quite dry. N EYES: No conjunctival injection. No icterus. CARDIOVASCULAR: Tachycardic rate. Regular rhythm. No notable murmur. No JVD. RESPIRATORY: No respiratory distress. Breathing is unlabored. No wheezes. No rhonchi. No rales. No pain with a deep breath. GASTROINTESTINAL: Not distended. Bowel sounds are normal. No tenderness. No guarding. No rebound. No palpable mass. No bruit. Overall abdomen looks relatively benign on exam. GENITOURINARY: No tenderness over the bladder. No CVA tenderness. MUSCULOSKELETAL: Atraumatic. She does have bilateral lower extremity mild edema. No cord. No distended veins. No asymmetry. NEUROLOGICAL: Patient is alert and appropriate. No focal deficit noted. SKIN: No noted rashes. No diaphoresis. PSYCHIATRIC: Patient is calm. Mood is appropriate. Const Vital Signs: 06/01/23 08:42 06/01/23 08:55 06/01/23 11:23 Temperature 97.2 F L Temperature Source Temporal Pulse Rate 125 H 113 H Respiratory Rate 16 18 Respiratory Effort Normal Non-Labored Respiratory Pattern Normal Blood Pressure 102/81 H 99/79 Blood Pressure Mean 88 85 Pulse Ox 100 100 Oxygen Delivery Method Room Air Room Air 06/01/23 12:26 06/01/23 14:19 06/01/23 14:53 Temperature 97.8 F Temperature Source Oral Pulse Rate 109 H 108 H 109 H Respiratory Rate 18 18 13 Respiratory Effort Respiratory Pattern Blood Pressure 115/91 H 132/88 H 123/87 H Blood Pressure Mean 99 102 99 Pulse Ox 100 100 99 Oxygen Delivery Method Room Air Room Air Nasal Cannula 06/01/23 15:00 Temperature Temperature Source Pulse Rate 108 H Respiratory Rate 13 Respiratory Effort Respiratory Pattern Blood Pressure 116/82 H Blood Pressure Mean 93 Pulse Ox 98 Oxygen Delivery Method Room Air MDM MDM MDM Narrative Medical decision making narrative: Procedure: Right-sided femoral vein blood draw The area was cleansed and scrubbed with ChloraPrep. We discussed risk benefits and options with the patient. Site right was used. We could see femoral artery laterally and vein just medial to this. The area was anesthetized with 1.5 cc of 1% lidocaine locally. This was with a 25-gauge needle. We then used an 18- gauge needle to access the femoral vein under direct visualization and sent off blood work. Pressure was held for 5 minutes and she tolerated this very well. Patient CBC showed mild anemia but no white count. We had a little trouble getting blood from her. I did do a right-sided femoral stick even though we have an IV. See procedure note below electrolytes showed very high BUN to creatinine ratio even though her creatinine is normal. This might be due to pure fluid intake with very little protein and anasarca from her hypoalbuminemia she also got further IV fluids yesterday. She got some today. Liver function test shows no marked abnormalities. Lipase shows no acute process. I did discuss case with surgeon, Dr. Lugo. He does not feel that this is a good patient for PEG tube. He thinks that we really need to get the source of her problems. I did discuss this with the patient. I agree we really need to get to the root cause of this. Plan will be to transfer back to [facility] where she had her original surgery. I was able to talk to her surgeon, Dr. Snyder who did surgery in 2009 and he has accepted patient in transfer. Patient states she is actually just gotten progressively weaker and is to the point she does not even have the strength to walk. I think this is a combination of protein malnutrition and anasarca and deconditioning together. Lab Data Labs: Laboratory Results - last 24 hr 06/01/23 06/01/23 10:08 15:35 WBC 10.1 RBC 4.19 L Hgb 11.9 L Hct 37.5 MCV 89.5 MCH 28.4 MCHC 31.7 L RDW Std Deviation 44.3 H RDW Coeff of Katelynn 13.8 Plt Count 491 H MPV 9.5 Immature Gran % (Auto) 0.800 Neut % (Auto) 63.5 Lymph % (Auto) 25.2 [place] % (Auto) 7.9 Eos % (Auto) 1.8 Baso % (Auto) 0.8 Absolute Neuts (auto) 6.4 Absolute Lymphs (auto) 2.55 Nucleated RBC % 0 Sodium Cancelled 139 Potassium Cancelled 3.8 Chloride Cancelled 110 H Carbon Dioxide Cancelled 24.0 Anion Gap Cancelled 5 BUN Cancelled 22 H Creatinine Cancelled 0.40 L Estim Creat Clear Calc Cancelled Est GFR (MDRD) Af Amer Cancelled 227 Est GFR (MDRD) Non-Af Cancelled 188 BUN/Creatinine Ratio Cancelled 55.4 H Glucose Cancelled 137 H Lactic Acid 0.5 Calcium Cancelled 6.8 L Total Bilirubin Cancelled 0.20 AST Cancelled 15 ALT Cancelled 33 Alkaline Phosphatase Cancelled 138 H Total Protein Cancelled 3.6 L Albumin Cancelled 0.6 L Globulin Cancelled 3.0 Albumin/Globulin Ratio Cancelled 0.2 L Lipase Cancelled < 10 L Radiography Diagnostic Testing: Clinical Impression(s) from Imaging Studies Acute Abdomen Series 06/01/23 09:11 IMPRESSION: Normal x-ray examination of the chest, abdomen, and pelvis. Electronically Signed: Lon Pereyra MD at 10:44 EDT , Discharge Plan Triage Chief Complaint: General Illness ED Provider: Gurwinder Collier Dx/Rx/DC Orders Clinical Impression: History of gastric bypass, Anasarca, Intractable nausea and vomiting, Hypoalbuminemia, Dehydration Prescriptions: No Action indomethacin 75 mg capsule, extended release 75 mg PO TID Trulicity 0.75 mg/0.5 mL pen injector 0.75 mg subcut QWEEK scopolamine base 1 mg over 3 days patch 3 day 1 patch transdermal Q3D PRN (Reason: nausea and vomiting) Qty: 24 3RF lubiprostone 8 mcg capsule 24 mcg PO BID Qty: 60 3RF gabapentin 300 MG capsule 900 mg PO TID Patient Comments: take 3 capsules by mouth at bedtime cyclobenzaprine 10 mg Tablet 10 mg PO TID PRN (Reason: MUSCLE SPASMS) ondansetron HCl [Zofran] 4 mg Tablet 4 mg PO Q6H PRN (Reason: Nausea) hydrocodone-acetaminophen 7.5-325 mg Tablet 1 tab PO Q8H PRN (Reason: Pain) pantoprazole 40 mg tablet,delayed release (DR/EC) See Rx Instructions .ROUTE .COMPLEX Qty: 90 3RF Dose Instruction: take 1 tablet by mouth once daily Rx Instructions: take 1 tablet by mouth TWICE daily sodium chloride 0.9 % Parenteral Solution See Rx Instructions .ROUTE .COMPLEX Qty: 1000 0RF Rx Instructions: Infuse one liter NACL 0.9% over one hour. Please keep as standing order for PRN infusion 1-2 times a week for dehydration. Primary Care Provider: Juan Manuel Mirza Referrals: Juan Manuel Mirza MD [Primary Care Provider] - Disposition Disposition: Acute Care Hospital Discharge Location: [facility]
[2023-06-01] MEDS: Ondansetron 4 MG/2 ML Vial IV ×2 (10:06→19:30)
[2023-06-01] MEDS: 0.9% Normal Saline 1,000 ML 1000 ML IV (10:06)
[2023-06-01] MEDS: proMETHazine 25 MG/ML Syringe 12.5 MG IM (10:06)
[2023-06-01 10:18] LABS: Absolute Lymphocyte Count 2.55 X10^3/uL (0.83-4.51); Absolute Neutrophil Count 6.4 X10^3/uL (2.0-7.7); Basophil# 0.08 X10^3/uL; Basophil% 0.8 % (0-1); Eosinophil# 0.18 X10^3/uL; Eosinophils% 1.8 % (0-5); Hematocrit 37.5 % (37-47); Hemoglobin 11.9 g/dL (12.0-15.0); Lymphocyte # 2.55 X10^3/ul (0.83-4.51); Lymphocyte % 25.2 % (19-41); Mean Corp Hgb Conc 31.7 g/dL (32-36); Mean Corpuscular Hgb 28.4 pg (27.0-32.0); Mean Corpuscular Volume 89.5 fL (81-99); Mean Platelet Vol. 9.5 fl (6.2-12.0); Monocyte% 7.9 % (0-10); NRBC Flagged by Analyzer 0 % (0-5); Neutrophil # 6.43 X10^3/uL (2.7-7.7); Neutrophil % 63.5 % (47-70); Platelet Count 491 K/mm3 (150-450); RBC Distribution Width CV 13.8 % (11.6-14.6); RBC Distribution Width SD 44.3 fl (35.1-43.9); Red Blood Count 4.19 M/mm3 (4.2-5.4); White Blood Count 10.1 K/mm3 (4.4-11.0)
[2023-06-01] MEDS: 0.9% Normal Saline 1,000 ML 999 ML IV (12:26)
--- NOTE | 2023-06-01 16:24 | ED.RN ---
THIS RN CALLED LAB TO INQUIRE ABOUT LAB RESULTS. PER LAB, BLOOD RESULTS STILL PENDING.
[2023-06-01 16:35] LABS: Lactic Acid 0.5 mmol/L (0.4-1.9)
[2023-06-01 16:39] LABS: ALB/GLOB Ratio 0.2 RATIO (0.9-2.4); AST(SGOT) 15 U/L (15-37); Alanine Aminotransfer ALT/SGPT 33 U/L (13-56); Albumin, Serum 0.6 g/dL (3.2-5.0); Alkaline Phosphatase 138 U/L (45-117); Anion Gap 5 (5-15); BUN 22 mg/dL (7-18); BUN/Creat Ratio 55.4 RATIO (10-20); Calcium,Total 6.8 mg/dL (8.5-10.1); Chloride 110 mmol/L (98-107); EST Glomerular Filtration Rate 188 mL/min (>60); Est Glom Filt Rate - Afr Amer 227 mL/min (>60); Glucose 137 mg/dL (74-106); Lipase < 10 U/L (13-75); Potassium 3.8 mmol/L (3.5-5.1); Protein, Total 3.6 g/dL (6.4-8.2); Sodium Level 139 mmol/L (136-145)
[2023-06-01] MEDS: Gabapentin 300 MG Capsule 900 MG PO (22:32)
[2023-06-01] MEDS: Indomethacin 25 MG Capsule 75 MG PO (22:33)
[2023-06-02] VITALS (7 sets, daily range): BP systolic 102–119; BP diastolic 72–84; PULSE 103–114; RESP 16–18; TEMP 36.3–36.9; O2SAT 95–100; BMI 24.7
--- NOTE | 2023-06-02 01:46 | PCM.HP.STD ---
HPI - General General Date of Admission: 06/02/23 Date of Service: 06/02/23 Chief Complaint: Intractable N/V, poor intake. HPI Narrative The patient is a 42 y/o F w/ PMHx: Chronic migraines, HTN, GERD, Chronic anemia, Hx Aliza-en-Y with anastomic ulcer w/ chronic nausea and emesis following outpatient with Dr. Lombardo with last visit noted 01/30/23 with from notes usage of a Dobbhoff tube for nutrition with some improvement with Reglan but still diminished oral intake ability with planned per the note repeat endoscopy in the future who presents to the [facility] ED on 06/01/23 initially in the morning with decreased oral intake with removal of nasogastric tube approximate 19 weeks prior to current presentation with planned future evaluation for PEG tube placement with outpatient IV fluid administration ongoing with worsening bilateral lower extremity swelling and given poor intake no marked bowel movement pattern although she reported 1 on day of presentation with no specific abdominal pain but ongoing issues with oral intake prompting eventual ED evaluation. Work-up in the ED included T97.2, heart rate 125, BP 102/81, respiratory rate 16, 100% on room air with most recent vital signs heart rate 114, BP 109/77, respiratory rate 17, 97% on room air, CBC with WBC 10.1, hemoglobin 11.9, MCV 89.5, platelet 491 without marked shift, CMP with chloride 110, BUN/creatinine 22/0.40, glucose 137, lactic acid 0.8, calcium 6.8, alk phos 138 otherwise [place] profile not marked appearing, lipase less than 10, acute abdominal series unremarkable. The case was discussed with general surgeon Dr. Beard who felt she was not appropriate for PEG tube and felt that likely she need to be assessed for the root of the problem with plan transfer back to [facility] with acceptance by her surgeon Dr. Snyder who accepted but unfortunately there were no beds given prolonged wait in the emergency room requested admission until bed obtained at facility. In the ED patient ministered Phenergan 12.5 mg IM x1, Zofran 4 mg IV x2, indomethacin 75 mg p.o. x1, gabapentin 900 mg p.o. x1 in addition to 2 L normal saline. [facility] Medical History Abdominal pain Anastomotic ulcer Anemia Back pain Cardiology follow-up encounter Gastric reflux Gastric reflux History of echocardiogram History of irregular heartbeat History of ulceration Hypertension Kidney stones Migraine headache Nausea & vomiting Non-smoker Syncope Wears glasses Home Medications gabapentin 300 mg capsule 900 mg PO TID 05/18/18 [History Last Taken Unknown] dulaglutide 0.75 mg/0.5 mL subcutaneous pen injector (Trulicity) 0.75 mg subcut QWEEK 05/02/22 [History Last Taken Unknown] indomethacin 75 mg capsule,extended release 75 mg PO TID 05/02/22 [History Last Taken Unknown] scopolamine base 1 mg over 3 days transdermal patch 1 patch transdermal Q3D PRN nausea and vomiting #24 ea 05/02/22 [Rx Last Taken Unknown] pantoprazole 40 mg tablet,delayed release See Rx Instructions .Route .COMPLEX #90 tabs 07/18/22 [Rx Last Taken Unknown] cyclobenzaprine 10 mg tablet 10 mg PO TID PRN MUSCLE SPASMS 12/28/22 [History Last Taken Unknown] hydrocodone 7.5 mg-acetaminophen 325 mg tablet 1 tab PO Q8H PRN Pain 12/28/22 [History Last Taken 01/04/23 05:30] ondansetron HCl 4 mg tablet 4 mg PO Q6H PRN Nausea 12/28/22 [History Last Taken Unknown] sodium chloride 0.9 % See Rx Instructions .Route .COMPLEX #1,000 mL 01/08/23 [Rx Last Taken Unknown] lubiprostone 8 mcg capsule 24 mcg (3 x 8 mcg) PO BID #60 caps 01/30/23 [Rx Last Taken Unknown] Allergy/AdvReac Type Severity Reaction Status Date / Time codeine Allergy Other Verified 06/01/23 08:44 morphine Allergy Hives Verified 06/01/23 08:44 Family History Mother Diabetes Pulmonary embolism Father Diabetes Surgical History Gastric bypass status for obesity History of hysterectomy History of surgery Hx of section Hx of colonoscopy Hx of tubal ligation Social History household members: spouse Smoking Status: Never smoker alcohol intake: never substance use type: does not use ROS ROS Narrative Admission Review of Systems: CONSTITUTIONAL: No weight loss, fever, chills, + weakness or fatigue. HEENT: Eyes: No visual loss, blurred vision, double vision or yellow sclerae. Ears, Nose, Throat: No hearing loss, sneezing, congestion, runny nose or sore throat. SKIN: No rash or itching, lesions, wounds. CARDIOVASCULAR: + Edema. No chest pain, chest pressure or chest discomfort, palpitations, orthopnea, syncopal events. RESPIRATORY: No shortness of breath, cough or sputum, wheezing, hemoptysis. GASTROINTESTINAL: + anorexia, nausea, vomiting, constipation. No diarrhea, abdominal pain, melena, BRBPR. GENITOURINARY: No dysuria, frequency, urgency or retention. NEUROLOGICAL: No headache, dizziness, syncope, paralysis, ataxia, numbness or tingling in the extremities, focal weakness, change in bowel or bladder control, seizure. MUSCULOSKELETAL: + muscle, back pain, joint pain or stiffness. HEMATOLOGIC: + anemia. LYMPHATICS: No enlarged nodes. No history of splenectomy. PSYCHIATRIC: No history of depression or anxiety. ENDOCRINOLOGIC: No reports of sweating, cold or heat intolerance. No polyuria or polydipsia. ALLERGIES: + history of hives. Vital Signs Vital Signs Vital Signs: 06/01/23 08:42 06/01/23 08:55 06/01/23 11: Temperature 97.2 F L Temperature Source Temporal Pulse Rate 125 H 113 H Respiratory Rate 16 18 Respiratory Effort Normal Non-Labored Respiratory Pattern Normal Blood Pressure 102/81 H 99/79 Blood Pressure Mean 88 85 Pulse Ox 100 100 Oxygen Delivery Method Room Air Room Air 06/01/23 12:26 06/01/23 14:19 06/01/23 14:53 Temperature 97.8 F Temperature Source Oral Pulse Rate 109 H 108 H 109 H Respiratory Rate 18 18 13 Respiratory Effort Respiratory Pattern Blood Pressure 115/91 H 132/88 H 123/87 H Blood Pressure Mean 99 102 99 Pulse Ox 100 100 99 Oxygen Delivery Method Room Air Room Air Nasal Cannula 06/01/23 15:00 06/01/23 17:50 06/01/23 18:23 Temperature Temperature Source Pulse Rate 108 H 114 H 121 H Respiratory Rate 13 16 14 Respiratory Effort Respiratory Pattern Blood Pressure 116/82 H 112/78 112/79 Blood Pressure Mean 93 89 90 Pulse Ox 98 98 98 Oxygen Delivery Method Room Air Room Air Room Air 06/01/23 19:09 06/01/23 21:22 06/01/23 23:00 Temperature Temperature Source Pulse Rate 121 H 112 H 112 H Respiratory Rate 16 17 20 H Respiratory Effort Respiratory Pattern Blood Pressure 113/84 H 111/87 H 113/87 H Blood Pressure Mean 93 95 95 Pulse Ox 99 97 98 Oxygen Delivery Method Room Air Room Air Room Air 06/02/23 01:00 Temperature Temperature Source Pulse Rate 114 H Respiratory Rate 17 Respiratory Effort Respiratory Pattern Blood Pressure 109/77 Blood Pressure Mean 87 Pulse Ox 97 Oxygen Delivery Method Room Air Physical Exam Narrative Physical Examination: General: Awake, alert, oriented x 3 and cooperative, seated upright in the ED bed in no apparent distress, extremely fatigued appearing. Skin: Normal color, normal turgor, no icterus, no cyanosis. HEENT: AT/NC, EOMI, PERRLA, dry MM, no carotid bruits or JVD noted. Lungs: CTA bilaterally, moderate effort, mild decrease BL bases, no rales, ronchi or wheezing. Heart: Mildly tachycardic with regular rhythm; no gallop, rub audible. Abdomen: Soft, NTTP, ND, hyperactive BS, no HSM. Extremities: No cyanosis, clubbing, or edema. Neurological: Patient awake, alert, oriented as noted, cognitive function intact; pupils equally reactive to light and accommodation, cranial nerves II-XII grossly normal, moving all 4 extremities, no focal deficits, strength severely globally decreased. Psychiatric: Affect appears flat, fatigued, no acute evidence of depressive or anxiety feelings. Results Lab / Micro Data 06/01/23 10:08 06/01/23 15:35 Labs: Laboratory Results - last 24 hr 06/01/23 10:08: WBC 10.1, RBC 4.19 L, Hgb 11.9 L, Hct 37.5, MCV 89.5, MCH 28.4, MCHC 31.7 L, RDW Std Deviation 44.3 H, RDW Coeff of Katelynn 13.8, Plt Count 491 H, MPV 9.5, Immature Gran % (Auto) 0.800, Neut % (Auto) 63.5, Lymph % (Auto) 25.2, [place] % (Auto) 7.9, Eos % (Auto) 1.8, Baso % (Auto) 0.8, Absolute Neuts (auto) 6.4, Absolute Lymphs (auto) 2.55, Nucleated RBC % 0, Sodium Cancelled, Potassium Cancelled, Chloride Cancelled, Carbon Dioxide Cancelled, Anion Gap Cancelled, BUN Cancelled, Creatinine Cancelled, Estim Creat Clear Calc Cancelled, Est GFR (MDRD) Af Amer Cancelled, Est GFR (MDRD) Non-Af Cancelled, BUN/Creatinine Ratio Cancelled, Glucose Cancelled, Calcium Cancelled, Total Bilirubin Cancelled, AST Cancelled, ALT Cancelled, Alkaline Phosphatase Cancelled, Total Protein Cancelled, Albumin Cancelled, Globulin Cancelled, Albumin/Globulin Ratio Cancelled, Lipase Cancelled 06/01/23 15:35: Sodium 139, Potassium 3.8, Chloride 110 H, Carbon Dioxide 24.0, Anion Gap 5, BUN 22 H, Creatinine 0.40 L, Est GFR (MDRD) Af Amer 227, Est GFR (MDRD) Non-Af 188, BUN/Creatinine Ratio 55.4 H, Glucose 137 H, Lactic Acid 0.5, Calcium 6.8 L, Total Bilirubin 0.20, AST 15, ALT 33, Alkaline Phosphatase 138 H, Total Protein 3.6 L, Albumin 0.6 L, Globulin 3.0, Albumin/Globulin Ratio 0.2 L, Lipase < 10 L Radiology Impression Acute Abdomen Series 06/01/23 09:11 IMPRESSION: Normal x-ray examination of the chest, abdomen, and pelvis. Electronically Signed: Lon Pereyra MD at 10:44 EDT , Assessment & Plan Assessment/Plan (1) Intractable nausea and vomiting: PLAN: Plan The patient is a 42 y/o F w/ PMHx: Chronic migraines, HTN, GERD, Chronic anemia, Hx Aliza-en-Y with anastomic ulcer w/ chronic nausea and emesis following outpatient with Dr. Lombardo with last visit noted 01/30/23 with from notes usage of a Dobbhoff tube for nutrition with some improvement with Reglan but still diminished oral intake ability with planned per the note repeat endoscopy in the future who presents to the [facility] ED on 06/01/23 initially in the morning with decreased oral intake with removal of nasogastric tube approximate 19 weeks prior to current presentation with planned future evaluation for PEG tube placement with outpatient IV fluid administration ongoing with worsening bilateral lower extremity swelling and given poor intake no marked bowel movement pattern although she reported 1 on day of presentation with no specific abdominal pain but ongoing issues with oral intake prompting eventual ED evaluation. #1. Persistent intractable nausea, occasional emesis with poor oral intake, severe protein calorie malnutrition secondary to underlying anastomotic ulcer of her Aliza-en-Y: Given no beds at the [facility] although she has been accepted will admit to medical surgical floor, maintain on fall precautions, will continue IV fluids, maintain on IV PPI, allow clear liquids if patient is able to tolerate, will trend CBC and CMP, will obtain magnesium and phosphorus levels and replete if appropriate, if prolonged wait while here could consider evaluation by Dr. Lombardo her gastroenterology as they have been closely following with this patient but will hold on immediately requesting in case of early transfer, as needed antiemetics. In the interim we will also continue patient lubiprostone which gastroenterology has been prescribing. Will have as needed pain regimen. Nutrition consulted. #2. Bilateral lower extremity edema: Suspect related with malnutrition as well as recent aggressive IV fluid hydration, will place snug akira wraps with elevation, judiciously hydrating given decreased intake ability, recent DVT ultrasound negative of note. #3. Chronic migraines: Not on any chronic migraine type regimen aside gabapentin, will continue. #4. Chronic back pain: We will continue patient home as needed cyclobenzaprine, gabapentin and pain regimen. #5. Hypertension: Noted history, currently BP normal range and not on any regimen per current list, will have as needed hydralazine. #6. Chronic normocytic anemia: Admission hemoglobin 11.9, MCV 89.5, most recent hemoglobin has been normal 02/08/23 hemoglobin 13.5 however in the past she has vacillated between 10 and 12, vitamin B12/Folic acid levels requested, will continue to trend. #7. GERD: Given presentation transition to IV PPI. #8. DVT prophylaxis: SCDs. Charges/Coding Visit Charges Inpatient E&M: 91254 Init Hosp L3
[2023-06-02 03:37] LABS: Magnesium 1.9 mg/dL (1.6-2.6); Phosphorus 3.3 mg/dL (2.5-4.9)
[2023-06-02] MEDS: Ondansetron 4 MG/2 ML Vial IV ×2 (05:22→13:06)
[2023-06-02] MEDS: 0.9% Saline Lock 10 ML Syringe IV ×2 (05:23→13:06)
[2023-06-02] MEDS: 0.9% Normal Saline 1,000 ML 100 ML IV (05:31)
[2023-06-02] MEDS: Gabapentin 300 MG Capsule 900 MG PO ×3 (05:32→20:57)
[2023-06-02] MEDS: Scopolamine 1mg/72hr Patch 1 PATCH TD (05:46)
[2023-06-02] MEDS: LUBIPROSTONE 8 MCG CAPSULE 24 MCG PO (12:56)
[2023-06-02] MEDS: cycloBENZAPRine HCl 10 MG Tablet PO (13:06)
--- NOTE | 2023-06-02 13:34 | PN_ITS ---
Subjective Subjective Patient seen and examined. She complains of headache, but has no other complaints. Reviwe of systems is otherwise negative. She is awaiting transfer to [facility] where she has been accepted pending bed availability Objective Data Objective Data Vital Signs: Vital Signs Temp Pulse Resp BP Pulse Ox O2 Del Method 98.5 F 103 H 18 103/72 99 Room Air 06/02/23 08:48 06/02/23 08:48 06/02/23 08:48 06/02/23 08:48 06/02/23 10:29 06/02/23 10:29 Oxygen Delivery Method Room Air Weight: 157 lb 10.088 oz Body Mass Index (BMI) 24.7 Intake & Output: Intake and Output for Last 24 Hours 05/31/23 06/01/23 06/02/23 23:59 23:59 23:59 Intake Total 1999 620 / 620 Balance 1999 620 / 620 Lab / Micro Data 06/01/23 10:08 06/01/23 15:35 Labs: Laboratory Results - last 24 hr 06/01/23 15:35: Sodium 139, Potassium 3.8, Chloride 110 H, Carbon Dioxide 24.0, Anion Gap 5, BUN 22 H, Creatinine 0.40 L, Est GFR (MDRD) Af Amer 227, Est GFR (MDRD) Non-Af 188, BUN/Creatinine Ratio 55.4 H, Glucose 137 H, Lactic Acid 0.5, Calcium 6.8 L, Phosphorus 3.3, Magnesium 1.9, Total Bilirubin 0.20, AST 15, ALT 33, Alkaline Phosphatase 138 H, Total Protein 3.6 L, Albumin 0.6 L, Globulin 3.0, Albumin/Globulin Ratio 0.2 L, Lipase < 10 L Physical Exam Const alert, oriented x3 and no apparent distress General Appearance: cooperative HEENT normocephalic, head/scalp atraumatic, moist oral mucous membranes and oropharynx normal Eyes PERRL and EOMs intact bilaterally Neck supple and no JVD Lymph Lymphatic: no lymphadenopathy noted Resp normal respiratory effort, normal air movement and clear to auscultation bilaterally Cardio regular rate, regular rhythm, S1 normal heart sound, S2 normal heart sound and no murmurs GI normal to inspection, nondistended, normoactive bowel sounds, soft to palpation, non-tender and non-distended Extremity normal capillary refill and no calf tenderness Extremity Narrative: bilateral LE pedal edema Skin General Skin Exam: no breakdown Neuro CN's II-XII intact bilaterally, no focal motor deficits, no sensory deficits noted and deep tendon reflexes 2+ bilaterally Motor Exam: strength 5/5 throughout Psych thought process normal and cooperative Appearance: appropriate Assessment & Plan Assessment/Plan (1) Intractable nausea and vomiting: PLAN: Plan #INtractable nausea and vomiting * likely due to gastric bypass surgery with anastomotic ulcer * has improved. abdominla pain is improving * She used to have a Dobhoff tube for feeding, but had diminished oral intake. She had the NG tube removed a few weeks rprior. * deemed to be needing PEG tube, but general surgeon felt she needed to be evaluated for the root of the problem, hence her being transferred to [facility], pending bed availability * on zofran and phenergan * continue gentle hydration with IVF * #Bilateral LE edema * NERIS wraps in place. * recent DUplex of LEs was negative. * concern for malnutrition playing a role, as albumin is only 0.6, calcium is 6.8, but is WNL corrected for albumin. * #Chronic migraines and back pain: on cyclobenzaprine and gabapentin #GERD: on PPI DVT prophylaxis: SCDs Disposition: awaiting transfer to [facility] pending bed availability Charges/Coding Visit Charges Inpatient E&M: 99042 Subs Hosp L2
[2023-06-02 14:23] LABS: Color, Urine Yellow (Yellow); Glucose, Dipstick Normal (Normal); Ketone-Dipstick 150 mg/dl (Negative); Leukocyte Esterase-Dipstick 25 /ul (Negative); Nitrite-Dipstick Negative (Negative); Occult Blood-Urine Negative /ul (Negative); Protein-Dipstick 30 mg/dl (Negative); Urine Bilirubin Dipstick 3 mg/dL (Negative); Urine Clarity Clear (Clear); Urine Urobilinogen 1 mg/dl (Normal)
[2023-06-02 14:29] LABS: Bacteria RARE /hpf (None Seen); Mucous, Urine 2+ /hpf (<or=2+); Red Blood Cells-Urine 0-5 SEEN /hpf (0-5); Squamous Epithelial Cells - UA 0-5 SEEN /hpf (5-10); White Blood Cells 5-10 SEEN /hpf (0-5)
[2023-06-02] MEDS: Mag Hydrox/Al Hydrox/Simeth 30 ML UDC PO (14:48)
[2023-06-02] MEDS: Ensure Clear 120 ML Liquid PO (18:00)
== END 2023-06-02 21:40 | disposition short-term general hospital (02) | DRG 380 ==
LOC: ED 17:50 → MS3 06-02 04:40
PROVIDERS: Admitting Provider Family Medicine; Emergency Provider Emergency Medicine; PCP Family Medicine; Referring Provider Family Medicine; Visit Provider Student in an Organized Health Care Education/Training Program
DX: K28.9 Gastrojejunal ulcer, unspecified as acute or chronic, without hemorrhage or perforation (principal); E43 Unspecified severe protein-calorie malnutrition; I10 Essential (primary) hypertension; D64.9 Anemia, unspecified; G43.709 Chronic migraine without aura, not intractable, without status migrainosus; K21.9 Gastro-esophageal reflux disease without esophagitis; M54.9 Dorsalgia, unspecified; Z98.84 Bariatric surgery status; R60.0 Localized edema; G89.29 Other chronic pain; Z68.24 Body mass index [BMI] 24.0-24.9, adult
CPT/HCPCS: 36415; 74022; 80053; 81001; 83605; 83690; 83735; 84100; 85025; 94668; 97802; 99252; 99283; J7030; A4216; G0463; J2405

== ENCOUNTER 2023-07-29 11:29 | Emergency (ER) | payer OTHER, SELFPAY ==
[2023-07-29 11:30] VITALS: BP 120/88; PULSE 100; RESP 23; TEMP 36.2; O2SAT 100
[2023-07-29 11:36] VITALS: O2SAT 98
[2023-07-29 11:41] VITALS: BMI 21.7
--- NOTE | 2023-07-29 11:42 | EX.ED.DYSGE1 ---
HPI History of Present Illness Chief Complaint: Cough Informant: patient Narrative Narrative: Sinus with 1 week history of cough. Patient was recently admitted to both [facility] and [facility] with vomiting, malnourishment, GI bleed. She is been home from the hospital for 2 weeks now. About a week ago she developed a cough and bringing up green sputum. She has had some intermittent fevers but none in the past 2 days. She went to urgent care today but they did not have the appropriate testing for her and sent her to the emergency room. She does report history of frequent Monia as an adult, but does not carry any long-term respiratory diagnoses. [facility] Medical History Abdominal pain Anastomotic ulcer Anemia Back pain Cardiology follow-up encounter Diabetes Gastric reflux GI bleed Hearing loss, left History of echocardiogram History of irregular heartbeat History of stress test History of ulceration Hypertension Kidney stones Migraine headache Migraines Nausea & vomiting Non-smoker Paroxysmal hemicrania Syncope Ulcer Wears glasses Home Medications gabapentin 300 mg capsule 900 mg PO TID 05/18/18 [History Last Taken Unknown] dulaglutide 0.75 mg/0.5 mL subcutaneous pen injector (Trulicity) 0.75 mg subcut QWEEK 05/02/22 [History Last Taken Unknown] indomethacin 75 mg capsule,extended release 75 mg PO TID 05/02/22 [History Last Taken Unknown] scopolamine base 1 mg over 3 days transdermal patch 1 patch transdermal Q3D PRN nausea and vomiting #24 ea 05/02/22 [Rx Last Taken Unknown] pantoprazole 40 mg tablet,delayed release See Rx Instructions .Route .COMPLEX #90 tabs 07/18/22 [Rx Last Taken Unknown] cyclobenzaprine 10 mg tablet 10 mg PO TID PRN MUSCLE SPASMS 12/28/22 [History Last Taken Unknown] hydrocodone 7.5 mg-acetaminophen 325 mg tablet 1 tab PO Q8H PRN Pain 12/28/22 [History Last Taken 01/04/23 05:30] ondansetron HCl 4 mg tablet 4 mg PO Q6H PRN Nausea 12/28/22 [History Last Taken Unknown] sodium chloride 0.9 % See Rx Instructions .Route .COMPLEX #1,000 mL 01/08/23 [Rx Last Taken Unknown] lubiprostone 8 mcg capsule 24 mcg (3 x 8 mcg) PO BID #60 caps 01/30/23 [Rx Last Taken Unknown] albuterol sulfate 90 mcg/actuation aerosol inhaler (Ventolin HFA) 2 puff inhalation Q4H PRN PRN Wheezing ##1 07/29/23 [Rx Last Taken Unknown] benzonatate 200 mg capsule 200 mg PO BID PRN cough #14 caps 07/29/23 [Rx Last Taken Unknown] levofloxacin 750 mg tablet 750 mg PO Q24H #5 tabs 07/29/23 [Rx Last Taken Unknown] Allergy/AdvReac Type Severity Reaction Status Date / Time codeine Allergy Other Verified 06/01/23 08:44 morphine Allergy Hives Verified 06/01/23 08:44 Family History Mother Diabetes Pulmonary embolism Father Diabetes Surgical History Gastric bypass status for obesity History of hysterectomy History of surgery Hx of section Hx of colonoscopy Hx of tubal ligation S/P hysterectomy Social History household members: spouse Smoking Status: Never smoker alcohol intake: never substance use type: does not use ROS ROS ED Constitutional Constitutional ED: Reports fever(s); Denies chills Eyes Eyes: Denies change in vision or discharge from eye(s) ENT ENT ED: Denies discharge from eye(s), rhinorrhea or sore throat Cardiovascular Cardiovascular: Denies chest pain or palpitations Respiratory/Chest Respiratory/Chest: Reports cough and sputum; Denies dyspnea Gastrointestinal Gastrointestinal: Denies abdominal pain, nausea or vomiting Genitourinary Genitourinary ED: Denies dysuria Musculoskeletal Musculoskeletal: Denies back pain or extremity pain Integumentary Denies Abrasions or rash Neurologic Neurologic: Denies headache(s) or weakness Psychiatric Psychiatric: Denies anxiety or depression Allergic/Immunologic Allergic/Immunologic ED: Denies lip swelling or urticaria EXAM Physical Exam Const Vital Signs: 07/29/23 11:30 07/29/23 11:36 07/29/23 11:38 Temperature 97.2 F L Temperature Source Temporal Pulse Rate 100 Respiratory Rate 23 H Respiratory Effort Short of Breath Labored Short of Breath Labored Respiratory Depth Normal Respiratory Pattern Normal Normal Blood Pressure 120/88 H Blood Pressure Mean 98 Pulse Ox 100 Oxygen Delivery Method Room Air Room Air 07/29/23 12:17 Temperature 98.0 F Temperature Source Oral Pulse Rate 94 Respiratory Rate 20 H Respiratory Effort Respiratory Depth Respiratory Pattern Blood Pressure 109/76 Blood Pressure Mean 87 Pulse Ox 96 Oxygen Delivery Method Room Air Positive well nourished and well developed General Appearance ED: well developed HEENT Reports normocephalic and head/scalp atraumatic Eyes PERRL and EOMs intact bilaterally Neck supple Chest Wall inspection of chest normal and palpation of chest normal Resp normal respiratory effort and clear to auscultation bilaterally Cardio regular rate and regular rhythm GI non-tender Auscultation: hypoactive bowel sounds Palpation: soft Extremity normal to inspection Neuro oriented x3 and no sensory deficits noted Sensorium / Orientation: alert Motor Exam: strength 5/5 throughout Psych mental status grossly normal Skin no rashes or lesions noted MDM MDM MDM Narrative Medical decision making narrative: Swab for COVID and influenza obtained. Chest x-ray obtained to evaluate for possible infiltrate. Radiography Diagnostic Testing: Clinical Impression(s) from Imaging Studies Chest X-Ray 07/29/23 11:51 IMPRESSION: Ill-defined opacity within the right mid lung may reflect focal pneumonia. Electronically Signed: Danette Denton MD at 12:37 EDT , Treatment and Re-Evaluation :: For COVID and influenza is negative. Chest x-ray per my interpretation reveals what appears to be a right-sided midlung infiltrate. Radiology interpretation is reviewed and agrees. EKG is performed and reveals sinus rhythm at 90 bpm. QTc is 433. Patient be treated with a course of Levaquin, first dose given here. She states in the past and albuterol has helped her along with Lily Andrew and she will be given prescriptions for both of these as well. Return instructions were provided. Discharge Plan Triage Chief Complaint: Cough Other Complaint: Cold Sx Fever ED Provider: Pat Mendez Dx/Rx/DC Orders Clinical Impression: Pneumonia Instructions: ED Pneumonia (Adult) Prescriptions: New levofloxacin 750 mg tablet 750 mg PO Q24H Qty: 5 0RF benzonatate 200 mg capsule 200 mg PO BID PRN (Reason: cough) Qty: 14 0RF albuterol sulfate [Ventolin HFA] 90 mcg/actuation HFA aerosol inhaler 2 puff inhalation Q4H PRN PRN (Reason: Wheezing) Qty: 1 0RF No Action indomethacin 75 mg capsule, extended release 75 mg PO TID Trulicity 0.75 mg/0.5 mL pen injector 0.75 mg subcut QWEEK scopolamine base 1 mg over 3 days patch 3 day 1 patch transdermal Q3D PRN (Reason: nausea and vomiting) Qty: 24 3RF lubiprostone 8 mcg capsule 24 mcg PO BID Qty: 60 3RF gabapentin 300 MG capsule 900 mg PO TID Patient Comments: take 3 capsules by mouth at bedtime cyclobenzaprine 10 mg Tablet 10 mg PO TID PRN (Reason: MUSCLE SPASMS) ondansetron HCl [Zofran] 4 mg Tablet 4 mg PO Q6H PRN (Reason: Nausea) hydrocodone-acetaminophen 7.5-325 mg Tablet 1 tab PO Q8H PRN (Reason: Pain) pantoprazole 40 mg tablet,delayed release (DR/EC) See Rx Instructions .ROUTE .COMPLEX Qty: 90 3RF Dose Instruction: take 1 tablet by mouth once daily Rx Instructions: take 1 tablet by mouth TWICE daily sodium chloride 0.9 % Parenteral Solution See Rx Instructions .ROUTE .COMPLEX Qty: 1000 0RF Rx Instructions: Infuse one liter NACL 0.9% over one hour. Please keep as standing order for PRN infusion 1-2 times a week for dehydration. Primary Care Provider: Juan Manuel Mirza Referrals: Juan Manuel Mirza MD [Primary Care Provider] - 1 Week Disposition Disposition: Home, Self Care
--- NOTE | 2023-07-29 11:51 | RAD_ITS ---
INDICATION: cough EXAMINATION/TECHNIQUE: X-RAY - XR Chest 1 View COMPARISON: June 01, 2023 FINDINGS: LINES/DEVICES: None. LUNGS: There is ill-defined opacity within the right mid lung. No pneumothorax. MEDIASTINUM AND CARDIOVASCULAR STRUCTURES: Cardiac silhouette not enlarged. Central airways and mediastinal contour are unremarkable. BONES AND SOFT TISSUES: Unremarkable. RAD/Chest 1 View (Portable) IMPRESSION: Ill-defined opacity within the right mid lung may reflect focal pneumonia. Electronically Signed: Danette Denton MD at 12:37 EDT ,
[2023-07-29 12:17] VITALS: BP 109/76; PULSE 94; RESP 20; TEMP 36.7; O2SAT 96
--- NOTE | 2023-07-29 12:17 | EKG12_ITS ---
Test Reason : Blood Pressure : / mmHG Vent. Rate : 090 BPM Atrial Rate : 090 BPM P-R Int : 180 ms QRS Dur : 090 ms QT Int : 354 ms P-R-T Axes : 045 057 063 degrees QTc Int : 433 ms Normal sinus rhythm Normal ECG Confirmed by MANAN LANDAVERDE, KIKA ([id number]), primer expeditor and drier VALENTINE HSU ([id number]) on 07/31/2023 12:44:28 PM Referred By: JUNIE Confirmed By:KIKA HINKLE MD
[2023-07-29 12:52] VITALS: BP 118/84; PULSE 93; RESP 15; O2SAT 94
== END 2023-07-29 13:09 | disposition home or self-care (01) ==
LOC: ED 12:57
PROVIDERS: Emergency Provider Emergency Medicine; PCP Family Medicine; Visit Provider Emergency Medicine
DX: J18.9 Pneumonia, unspecified organism (principal); E11.9 Type 2 diabetes mellitus without complications; I10 Essential (primary) hypertension; K21.9 Gastro-esophageal reflux disease without esophagitis; Z90.710 Acquired absence of both cervix and uterus; Z98.84 Bariatric surgery status
CPT/HCPCS: 71045; 87428; 93005; 99283

== ENCOUNTER 2023-12-29 17:24 | Emergency (ER) | payer OTHER, SELFPAY ==
[2023-12-29 17:25] VITALS: BP 94/77; PULSE 105; RESP 18; TEMP 35.2; O2SAT 98
[2023-12-29 18:04] VITALS: BP 102/76; PULSE 105; PULSE 107; RESP 16; RESP 18; TEMP 36.4; O2SAT 95; O2SAT 96; BMI 22.0
--- NOTE | 2023-12-29 18:07 | CT_ITS ---
INDICATION: post-op pain EXAMINATION: CT Abdomen And Pelvis W/ Contrast Injection TECHNIQUE: Helically acquired images were obtained of the abdomen and pelvis after IV contrast. A radiation dose optimization technique was used for this scan. IV Contrast dosage and agent: IV 75mL [id number] Oral contrast: None. COMPARISON: None. FINDINGS: Visualized lung bases: Unremarkable Liver: Mild intra and extra hepatic biliary ductal dilatation due to reservoir effect status post cholecystectomy. Gallbladder: Surgically absent. Spleen: Unremarkable Pancreas: Unremarkable Adrenal Glands: Unremarkable Kidneys: Unremarkable Vasculature: Unremarkable GI Tract: Gastrostomy tube in place. Postsurgical changes status post gastric bypass. Dilated stool-filled colon. Diffusely dilated fluid-filled small bowel. Mild short segment wall thickening of the hepatic flexure of the colon with surrounding inflammatory changes. Lymphadenopathy: None Peritoneum: Small volume complex free fluid with fat stranding in the surgical bed. Several foci of air in the right subdiaphragmatic space likely postsurgical. Bladder: Distended Reproductive organs: Unremarkable Bones/Soft tissues: No suspicious osseous or soft tissue lesions
--- NOTE | 2023-12-29 18:08 | EX.ED.DYSGE1 ---
HPI History of Present Illness Chief Complaint: Abd Pain Informant: patient and spouse/S.O. Onset/Context/Timing Onset: Today Narrative Narrative: Patient present secondary to increased abdominal pain. She had her gallbladder removed on the seventh at [facility]. She also had a G-tube exchanged and had an EGD with dilation. She was discharged from home from the hospital that same day. Spouse states that she did well yesterday but today has had increased pain. She did have a small bowel movement this morning. She does not feel that she is passing much gas since that time. She does not believe she had a fever. [facility] Medical History Abdominal pain Anastomotic ulcer Anemia Back pain Cardiology follow-up encounter Diabetes Gastric reflux GI bleed Hearing loss, left History of echocardiogram History of irregular heartbeat History of stress test History of ulceration Hypertension Kidney stones Migraine headache Migraines Nausea & vomiting Non-smoker Paroxysmal hemicrania Syncope Ulcer Wears glasses Home Medications gabapentin 300 mg capsule 900 mg PO TID 05/18/18 [History Last Taken Unknown] dulaglutide 0.75 mg/0.5 mL subcutaneous pen injector (Trulicity) 0.75 mg subcut QWEEK 05/02/22 [History Last Taken Unknown] indomethacin 75 mg capsule,extended release 75 mg PO TID 05/02/22 [History Last Taken Unknown] scopolamine base 1 mg over 3 days transdermal patch 1 patch transdermal Q3D PRN nausea and vomiting #24 ea 05/02/22 [Rx Last Taken Unknown] pantoprazole 40 mg tablet,delayed release See Rx Instructions .Route .COMPLEX #90 tabs 07/18/22 [Rx Last Taken Unknown] cyclobenzaprine 10 mg tablet 10 mg PO TID PRN MUSCLE SPASMS 12/28/22 [History Last Taken Unknown] hydrocodone 7.5 mg-acetaminophen 325 mg tablet 1 tab PO Q8H PRN Pain 12/28/22 [History Last Taken 01/04/23 05:30] ondansetron HCl 4 mg tablet 4 mg PO Q6H PRN Nausea 12/28/22 [History Last Taken Unknown] sodium chloride 0.9 % See Rx Instructions .Route .COMPLEX #1,000 mL 01/08/23 [Rx Last Taken Unknown] lubiprostone 8 mcg capsule 24 mcg (3 x 8 mcg) PO BID #60 caps 01/30/23 [Rx Last Taken Unknown] albuterol sulfate 90 mcg/actuation aerosol inhaler (Ventolin HFA) 2 puff inhalation Q4H PRN PRN Wheezing ##1 07/29/23 [Rx Last Taken Unknown] benzonatate 200 mg capsule 200 mg PO BID PRN cough #14 caps 07/29/23 [Rx Last Taken Unknown] levofloxacin 750 mg tablet 750 mg PO Q24H #5 tabs 07/29/23 [Rx Last Taken Unknown] Allergy/AdvReac Type Severity Reaction Status Date / Time codeine Allergy Other Verified 12/29/23 17:27 morphine Allergy Hives Verified 12/29/23 17:27 Family History Mother Diabetes Pulmonary embolism Father Diabetes Surgical History Gastric bypass status for obesity History of hysterectomy History of surgery Hx of section Hx of colonoscopy Hx of tubal ligation S/P hysterectomy Social History household members: spouse Smoking Status: Never smoker alcohol intake: never substance use type: does not use ROS ROS ED Constitutional Constitutional ED: Denies chills or fever(s) Eyes Eyes: Denies change in vision or discharge from eye(s) ENT ENT ED: Denies discharge from eye(s), rhinorrhea or sore throat Cardiovascular Cardiovascular: Denies chest pain or palpitations Respiratory/Chest Respiratory/Chest: Reports dyspnea; Denies cough Gastrointestinal Gastrointestinal: Reports abdominal pain and nausea; Denies diarrhea or vomiting Genitourinary Genitourinary ED: Denies dysuria Musculoskeletal Musculoskeletal: Denies back pain or extremity pain Integumentary Denies Abrasions or rash Neurologic Neurologic: Denies headache(s) or weakness Allergic/Immunologic Allergic/Immunologic ED: Denies lip swelling or urticaria EXAM Physical Exam Const Vital Signs: 12/29/23 17:25 12/29/23 18:04 12/29/23 18:04 Temperature 95.3 F L 97.5 F L 97.5 F L Temperature Source Temporal Temporal Temporal Pulse Rate 105 H 107 H 105 H Respiratory Rate 18 18 16 Blood Pressure 94/77 102/76 102/76 Blood Pressure Mean 82 84 84 Pulse Ox 98 96 95 Oxygen Delivery Method Room Air Room Air Room Air 12/29/23 18:58 12/29/23 20:00 12/29/23 20:00 Temperature 98.1 F 98.2 F Temperature Source Temporal Oral Pulse Rate 101 H 103 H 103 H Respiratory Rate 18 21 H Blood Pressure 105/73 119/84 H Blood Pressure Mean 83 95 Pulse Ox 94 97 Oxygen Delivery Method Room Air Room Air Positive well nourished and well developed General Appearance ED: well developed HEENT Reports dry mucous membranes Mouth ED: Yes dry mucous membranes Mouth: dry mucous membranes Eyes EOMs intact bilaterally Chest Wall inspection of chest normal and palpation of chest normal Resp Resp Narrative: Patient tachypneic but lung sounds are clear bilaterally. Cardio Rate: tachycardic GI GI Narrative: Abdomen soft with severe tenderness throughout. Voluntary guarding. Extremity normal to inspection Neuro oriented x3 Psych Mood & Affect: anxious Skin no rashes or lesions noted MDM MDM MDM Narrative Medical decision making narrative: IV line initiated. Patient reports an allergy to morphine and codeine, but has tolerated both fentanyl and Dilaudid in the past. IV fluid bolus given along with a dose of Dilaudid and Zofran. Labwork obtained to evaluate for leukocytosis, anemia, and electrolyte derangement. CT scan of the abdomen pelvis IV contrast will be obtained to evaluate for postsurgical change, fluid collection. History & Record Review Discussion w/independent historian: Family Lab Data Attestation: I reviewed the patient's lab results. Labs: Laboratory Results - last 24 hr 12/29/23 18:25 WBC 10.5 RBC 4.83 Hgb 13.1 Hct 42.9 MCV 88.8 MCH 27.1 MCHC 30.5 L RDW Std Deviation 54.9 H RDW Coeff of Katelynn 16.8 H Plt Count 377 MPV 10.7 Immature Gran % (Auto) 0.400 Neut % (Auto) 86.4 H Lymph % (Auto) 6.9 L Foster % (Auto) 5.3 Eos % (Auto) 0.5 Baso % (Auto) 0.5 Absolute Neuts (auto) 9.1 H Absolute Lymphs (auto) 0.73 L Nucleated RBC % 0 PT 13.9 INR 1.1 APTT 30.1 Sodium 133 L Potassium 4.4 Chloride 99 Carbon Dioxide 26.0 Anion Gap 8 BUN 15 Creatinine 0.83 Estim Creat Clear Calc 85.86 Est GFR (MDRD) Af Amer 97 Est GFR (MDRD) Non-Af 80 BUN/Creatinine Ratio 18.1 Glucose 155 H Calcium 10.0 Total Bilirubin 1.20 H Direct Bilirubin 0.80 H AST 689 H ALT 694 H Alkaline Phosphatase 462 H Total Protein 9.3 H Albumin 3.5 Globulin 5.8 H Lipase 12 L Radiography Diagnostic Testing: Clinical Impression(s) from Imaging Studies Abdomen/Pelvis CT 12/29/23 18:07 IMPRESSION: Postsurgical changes status post cholecystectomy with trace complex free fluid in the surgical bed. Cannot rule out bile leak. Consider nuclear medicine HIDA scan. Mild wall thickening of the hepatic flexure of the colon with surrounding inflammation concerning for colitis. Postoperative ileus. Several foci of air in the right subdiaphragmatic space likely postsurgical. Electronically Signed: Ta Watkins MD at 21:21 EST , Treatment and Re-Evaluation :: CBC was normal white count 10.5 with 86% neutrophils. Hemoglobin 13.1. Coags unremarkable. Chemistry studies significant for a sodium of 133. Normal renal function. Glucose is 155. Total bilirubin is 1.2, direct bilirubin is 0.8. AST is 689, ALT 694, alk phos 462. Lipase is normal at 12. CT scan with IV contrast is obtained. Postsurgical changes status postcholecystectomy noted with trace complex free fluid in the surgical bed. Cannot exclude a bile leak. Mild wall thickening of the hepatic flexure of the colon with surrounding inflammation concerning for colitis. Postoperative ileus noted. Several foci of air in the right subdiaphragmatic space likely postsurgical. Patient has required multiple doses of analgesics here. I will speak with Hanane Medina regarding transfer as I am concerned that she may have a retained stone. On review of records the last LFTs I was able to find on her were from November and at that time they were normal. Discharge Plan Triage Chief Complaint: Abd Pain ED Provider: Pat Mendez Dx/Rx/DC Orders Clinical Impression: Elevated LFTs, Post-operative pain Prescriptions: No Action indomethacin 75 mg capsule, extended release 75 mg PO TID Trulicity 0.75 mg/0.5 mL pen injector 0.75 mg subcut QWEEK scopolamine base 1 mg over 3 days patch 3 day 1 patch transdermal Q3D PRN (Reason: nausea and vomiting) Qty: 24 3RF lubiprostone 8 mcg capsule 24 mcg PO BID Qty: 60 3RF gabapentin 300 MG capsule 900 mg PO TID Patient Comments: take 3 capsules by mouth at bedtime cyclobenzaprine 10 mg Tablet 10 mg PO TID PRN (Reason: MUSCLE SPASMS) ondansetron HCl [Zofran] 4 mg Tablet 4 mg PO Q6H PRN (Reason: Nausea) hydrocodone-acetaminophen 7.5-325 mg Tablet 1 tab PO Q8H PRN (Reason: Pain) levofloxacin 750 mg tablet 750 mg PO Q24H Qty: 5 0RF benzonatate 200 mg capsule 200 mg PO BID PRN (Reason: cough) Qty: 14 0RF albuterol sulfate [Ventolin HFA] 90 mcg/actuation HFA aerosol inhaler 2 puff inhalation Q4H PRN PRN (Reason: Wheezing) Qty: 1 0RF pantoprazole 40 mg tablet,delayed release (DR/EC) See Rx Instructions .ROUTE .COMPLEX Qty: 90 3RF Dose Instruction: take 1 tablet by mouth once daily Rx Instructions: take 1 tablet by mouth TWICE daily sodium chloride 0.9 % Parenteral Solution See Rx Instructions .ROUTE .COMPLEX Qty: 1000 0RF Rx Instructions: Infuse one liter NACL 0.9% over one hour. Please keep as standing order for PRN infusion 1-2 times a week for dehydration. Primary Care Provider: Juan Manuel Mirza Referrals: Juan Manuel Mirza MD [Primary Care Provider] - Disposition Disposition: Acute Care Hospital Discharge Location: [facility]
[2023-12-29] MEDS: 0.9% Normal Saline (1000mL) 1,000 ML 1000 ML IV (18:19)
[2023-12-29] MEDS: HYDROmorphone 1 MG/ML Syringe 0.5 MG IV (18:21)
[2023-12-29] MEDS: Ondansetron 4 MG/2 ML Vial IV (18:21)
[2023-12-29 18:32] LABS: Absolute Lymphocyte Count 0.73 X10^3/uL (0.83-4.51); Absolute Neutrophil Count 9.1 X10^3/uL (2.0-7.7); Basophil# 0.05 X10^3/uL; Basophil% 0.5 % (0-1); Eosinophil# 0.05 X10^3/uL; Eosinophils% 0.5 % (0-5); Hematocrit 42.9 % (37-47); Hemoglobin 13.1 g/dL (12.0-15.0); Lymphocyte # 0.73 X10^3/ul (0.83-4.51); Lymphocyte % 6.9 % (19-41); Mean Corp Hgb Conc 30.5 g/dL (32-36); Mean Corpuscular Hgb 27.1 pg (27.0-32.0); Mean Corpuscular Volume 88.8 fL (81-99); Mean Platelet Vol. 10.7 fl (6.2-12.0); Monocyte# 0.56 X10^3/uL; Monocyte% 5.3 % (0-10); NRBC Flagged by Analyzer 0 % (0-5); Neutrophil # 9.09 X10^3/uL (2.7-7.7); Neutrophil % 86.4 % (47-70); Platelet Count 377 K/mm3 (150-450); RBC Distribution Width CV 16.8 % (11.6-14.6); RBC Distribution Width SD 54.9 fl (35.1-43.9); Red Blood Count 4.83 M/mm3 (4.2-5.4); White Blood Count 10.5 K/mm3 (4.4-11.0)
[2023-12-29 18:40] LABS: International Normalized Ratio 1.1; Prothrombin Time (Protime)PT. 13.9 SECONDS (11.7-14.9)
[2023-12-29 18:41] LABS: Partial Thromboplast Time 30.1 Seconds (24.1-36.2)
[2023-12-29 18:47] LABS: AST(SGOT) 689 U/L (15-37); Alanine Aminotransfer ALT/SGPT 694 U/L (13-56); Albumin, Serum 3.5 g/dL (3.2-5.0); Alkaline Phosphatase 462 U/L (45-117); Anion Gap 8 (5-15); BUN 15 mg/dL (7-18); BUN/Creat Ratio 18.1 RATIO (10-20); Chloride 99 mmol/L (98-107); Creatinine, Serum 0.83 mg/dL (0.55-1.02); EST Glomerular Filtration Rate 80 mL/min (>60); Est Glom Filt Rate - Afr Amer 97 mL/min (>60); Estimated Creatinine Clearance 85.86 ml/min; Globulin 5.8 g/dL (2.2-4.2); Glucose 155 mg/dL (74-106); Lipase 12 U/L (13-75); Potassium 4.4 mmol/L (3.5-5.1); Protein, Total 9.3 g/dL (6.4-8.2); Sodium Level 133 mmol/L (136-145)
[2023-12-29 18:58] VITALS: BP 105/73; PULSE 101; RESP 18; TEMP 36.7; O2SAT 94
[2023-12-29 20:00] VITALS: BP 119/84; PULSE 103; RESP 21; TEMP 36.8; O2SAT 97
[2023-12-29] MEDS: HYDROmorphone 0.5 MG/0.5 ML SYRINGE IV ×2 (20:06→22:12)
[2023-12-29 22:00] VITALS: BP 128/91; PULSE 107; RESP 17; TEMP 36.6; O2SAT 97
[2023-12-29] MEDS: 0.9% Normal Saline (1000mL) 1,000 ML 150 ML IV (22:12)
[2023-12-30] VITALS: BP 118/85; PULSE 110; RESP 19; O2SAT 98
[2023-12-30 01:00] VITALS: BP 118/83; PULSE 108; RESP 19; TEMP 36.6; O2SAT 96
[2023-12-30] MEDS: HYDROmorphone 1 MG/ML Syringe IV (01:41)
[2023-12-30] MEDS: Ondansetron 4 MG/2 ML Vial IV (01:51)
[2023-12-30 04:11] VITALS: BP 117/88; PULSE 108; RESP 19; TEMP 36.6; O2SAT 100
== END 2023-12-30 04:13 | disposition short-term general hospital (02) ==
PROVIDERS: Emergency Provider Emergency Medicine; PCP Family Medicine; Visit Provider Emergency Medicine
DX: G89.18 Other acute postprocedural pain (principal); Z93.1 Gastrostomy status; E11.9 Type 2 diabetes mellitus without complications; R79.89 Other specified abnormal findings of blood chemistry; I10 Essential (primary) hypertension; Z79.85 Long-term (current) use of injectable non-insulin antidiabetic drugs; K21.9 Gastro-esophageal reflux disease without esophagitis; Z79.899 Other long term (current) drug therapy; Z90.710 Acquired absence of both cervix and uterus; Z98.51 Tubal ligation status; Z90.49 Acquired absence of other specified parts of digestive tract
CPT/HCPCS: 74177; 80048; 80076; 83690; 85025; 85610; 85730; 99285; J7030; Q9967; A4216; J2405

== ENCOUNTER 2024-07-08 19:21 | Emergency (ER) | payer OTHER, SELFPAY ==
[2024-07-08 19:21] VITALS: BP 91/73; PULSE 73; RESP 18; TEMP 36.4; O2SAT 98; BMI 23.1
--- NOTE | 2024-07-08 21:09 | EX.ED.DYSGE1 ---
HPI History of Present Illness Chief Complaint: Hypotension Informant: patient and spouse/S.O. Narrative Narrative: Presents concerns for dehydration and hypotension. History of gastric bypass tube feedings. History of stomach strictures. Multiple pneumonia issues most recent this past Sunday currently on doxycycline and cefuroxime. She has had diarrhea since her pneumonia. She was diagnosed with COVID 6 weeks ago on her fourth episode. She took Paxlovid at that time. No dyspnea. No vomiting. Multiple outs of diarrhea per day. Blood pressure systolic 54 at home per patient. She was lightheaded. She gets bouts of dehydration with her medical history. She requests liver enzyme checks due to recent elevated liver enzymes with next check tomorrow. Prior similar symptoms: Yes PFSH PFSH Medical History Asthma DVT (deep venous thrombosis) Paroxysmal hemicrania Ulcer History of stress test Hearing loss, left Diabetes GI bleed Migraines Kidney stones Back pain Syncope History of irregular heartbeat Nausea & vomiting Anastomotic ulcer Wears glasses Anemia Migraine headache History of ulceration Gastric reflux History of echocardiogram Hypertension Cardiology follow-up encounter Abdominal pain Non-smoker Home Medications ?Medication ?Instructions ?Recorded ?Last Taken ?Type gabapentin 300 mg capsule 900 mg PO TID 05/18/18 Unknown History scopolamine base 1 mg over 3 days 1 patch transdermal Q3D PRN nausea 05/02/22 Unknown Rx transdermal patch and vomiting #24 ea pantoprazole 40 mg tablet,delayed See Rx Instructions .Route 07/18/22 Unknown Rx release .COMPLEX #90 tabs albuterol sulfate 90 mcg/actuation 2 puff inhalation Q4H PRN PRN 07/29/23 Unknown Rx aerosol inhaler (Ventolin HFA) Wheezing ##1 benzonatate 200 mg capsule 200 mg PO BID PRN cough #14 caps 07/29/23 Unknown Rx empagliflozin 25 mg tablet 25 mg PO DAILY 07/08/24 Unknown History (Jardiance) melatonin 10 mg capsule 20 mg PO QHS 07/08/24 Unknown History metformin 500 mg tablet 500 mg PO TID 07/08/24 Unknown History metoclopramide HCl 10 mg tablet 10 mg PO Q8H PRN PRN nause 07/08/24 Unknown History (Reglan) oxycodone 10 mg tablet 10 mg PO 4X/DAY PRN PRN pain 07/08/24 Unknown History sucralfate 1 gram tablet (Carafate) 1 g PO .qid 07/08/24 Unknown History tizanidine 4 mg tablet 4 mg PO .qid PRN muscle spasticity 07/08/24 Unknown History topiramate 100 mg tablet 100 mg PO DAILY 07/08/24 Unknown History Allergy/AdvReac Type Severity Reaction Status Date / Time codeine Allergy Other Verified 07/08/24 19:21 morphine Allergy Hives Verified 07/08/24 19:21 Family History Mother Diabetes Pulmonary embolism Father Diabetes Surgical History History of cholecystectomy S/P hysterectomy History of hysterectomy Hx of colonoscopy Hx of tubal ligation History of surgery Hx of section Gastric bypass status for obesity Social History household members: spouse Smoking Status: Never smoker alcohol intake: never substance use type: does not use ROS ROS ED Constitutional Constitutional ED: Denies chills, fever(s) or sweats Eyes Eyes: Denies change in vision ENT ENT ED: Denies dysphagia or sore throat Cardiovascular Cardiovascular: Reports other Details: Lightheaded ; Denies chest pain, leg edema, palpitations or racing heartbeat Respiratory/Chest Respiratory/Chest: Denies cough, dyspnea or dyspnea on exertion Gastrointestinal Gastrointestinal: Reports diarrhea; Denies abdominal pain, nausea or vomiting Genitourinary Genitourinary ED: Denies dysuria, hematuria or urinary frequency Musculoskeletal Musculoskeletal: Denies back pain, extremity pain or neck pain Integumentary Denies rash or wounds Neurologic Neurologic: Denies headache(s), paresthesias or weakness EXAM Physical Exam Const Vital Signs: 07/08/24 19:21 07/08/24 21:17 07/08/24 21:21 Temperature 97.6 F L Temperature Source Temporal Pulse Rate 73 78 Respiratory Rate 18 16 Respiratory Pattern Normal Blood Pressure 91/73 110/70 Blood Pressure Mean 79 83 Pulse Ox 98 97 Oxygen Delivery Method Room Air Room Air 07/08/24 22:41 07/08/24 23:07 Temperature 98.1 F 97.9 F Temperature Source Oral Pulse Rate 78 78 Respiratory Rate 16 16 Respiratory Pattern Blood Pressure 93/63 96/68 Blood Pressure Mean 73 77 Pulse Ox 97 97 Oxygen Delivery Method Room Air Positive well nourished and well developed General Appearance ED: well developed and NAD HEENT Reports moist mucous membranes normocephalic and atraumatic Eyes EOMs intact bilaterally and conjunctivae normal General Eye ED: Yes normal appearance of both eyes Neck no lymphadenopathy and supple General: Negative for tenderness Chest Wall Chest: Negative for tenderness Resp normal respiratory effort and normal air movement Effort and Inspection: symmetric chest movement; Negative for respiratory distress Cardio regular rate, regular rhythm and no murmurs Peripheral Pulses: pulses 2+ throughout GI normal to inspection, nondistended, normoactive bowel sounds and non-tender Palpation: Negative for guarding or rebound tenderness present Back/Spine no CVA tenderness and no thoracic nor lumbar tenderness Extremity normal to inspection General Extremety ED: Negative for edema or tenderness General Extremity: Negative for edema Neuro oriented x3 and no sensory deficits noted Sensorium / Orientation: awake and alert Skin no rashes or lesions noted and no wounds MDM MDM MDM Narrative Medical decision making narrative: Interventions / MDM: Differential diagnosis: Dehydration, electrolyte abnormalities, diarrhea, current treatment for pneumonia Diagnosis considered but do not suspect: N/A My EKG interpretation: N/A Imaging independently reviewed and interpreted by myself: N/A External documents reviewed: N/A Test considered but not ordered:N/A ED course: Triage blood pressure 91/73. Moist mucosal membranes. Prior to IV being initiated recheck systolic 117. With her history we will give IV fluids and check labs. Pulse ox 98% room air. Labs creatinine 1.06 up from 0.8 in the past. Liver enzymes AST 242 ALT 256 alk phos 199. However previously 6 months ago it was in the 600 range. Normal bilirubin. Clinically is feeling better with fluid blood pressure stable. She is given total 2 L of normal saline fluid. Discussed findings with the patient. Outpatient follow-up with her doctors. She will continue to finish her antibiotics. All questions were answered. Re-evaluation: stable Disposition discussed with patient/family/significant other: Patient and significant other Case discussed with consulting clinician: N/A This note was generated with [employer] dictation software. It may contain incorrect words, spelling, and punctuation that were not noted in checking the note before signing. Lab Data Attestation: I reviewed the patient's lab results. Labs: Laboratory Results - last 24 hr 07/08/24 21:15 WBC 8.2 RBC 4.17 L Hgb 11.3 L Hct 36.3 L MCV 87.1 MCH 27.1 MCHC 31.1 L RDW Std Deviation 50.1 H RDW Coeff of Katelynn 15.8 H Plt Count 341 MPV 10.1 Immature Gran % (Auto) 0.100 Neut % (Auto) 52.8 Lymph % (Auto) 35.3 Gregory % (Auto) 8.2 Eos % (Auto) 2.7 Baso % (Auto) 0.9 Absolute Neuts (auto) 4.3 Absolute Lymphs (auto) 2.88 Nucleated RBC % 0 Sodium 136 Potassium 4.2 Chloride 100 Carbon Dioxide 27.0 Anion Gap 9 BUN 39 H Creatinine 1.06 H Estim Creat Clear Calc 66.55 Est GFR (MDRD) Af Amer 73 Est GFR (MDRD) Non-Af 60 BUN/Creatinine Ratio 36.8 H Glucose 96 Calcium 9.8 Total Bilirubin 0.30 Direct Bilirubin 0.11 AST 242 H ALT 256 H Alkaline Phosphatase 199 H Total Protein 7.9 Albumin 3.5 Globulin 4.4 H Discharge Plan Triage Chief Complaint: Hypotension ED Provider: Carlos Venegas Dx/Rx/DC Orders Clinical Impression: Diarrhea, Pneumonia, History of gastric bypass, Renal insufficiency, Transaminitis Instructions: ED Diarrhea, Unknown Cause, ED Renal Insufficiency Prescriptions: No Action scopolamine base 1 mg over 3 days patch 3 day 1 patch transdermal Q3D PRN (Reason: nausea and vomiting) Qty: 24 3RF gabapentin 300 MG capsule 900 mg PO TID Patient Comments: take 3 capsules by mouth at bedtime benzonatate 200 mg capsule 200 mg PO BID PRN (Reason: cough) Qty: 14 0RF albuterol sulfate [Ventolin HFA] 90 mcg/actuation HFA aerosol inhaler 2 puff inhalation Q4H PRN PRN (Reason: Wheezing) Qty: 1 0RF metformin 500 mg tablet 500 mg PO TID Jardiance 25 mg tablet 25 mg PO DAILY tizanidine 4 mg tablet 4 mg PO .qid PRN (Reason: muscle spasticity) sucralfate [Carafate] 1 gram tablet 1 g PO .qid metoclopramide HCl [Reglan] 10 mg tablet 10 mg PO Q8H PRN PRN (Reason: nause) topiramate 100 mg tablet 100 mg PO DAILY oxycodone 10 mg tablet 10 mg PO 4X/DAY PRN PRN (Reason: pain) melatonin 10 mg capsule 20 mg PO QHS pantoprazole 40 mg tablet,delayed release (DR/EC) See Rx Instructions .ROUTE .COMPLEX Qty: 90 3RF Dose Instruction: take 1 tablet by mouth once daily Rx Instructions: take 1 tablet by mouth TWICE daily Primary Care Provider: Juan Manuel Mirza Referrals: Juan Manuel Mirza MD [Primary Care Provider] - 3-5 Days Activity Restrictions/Additional Instructions: Your creatinine 1.06 up from 0.86 months ago. This is still in the normal range. Potassium normal at 4.2. AST 242, ALT 256, alk phos 199. Improved from your last liver enzymes in the 600 range. Status post 2 L of normal saline fluid. Your blood pressure is stable and EKG is normal. Follow-up with your doctor. Print Language: [place]se Disposition Disposition: Home, Self Care Discharge Date/Time: 07/08/24 23:08
[2024-07-08 21:21] VITALS: BP 110/70; PULSE 78; RESP 16; O2SAT 97
[2024-07-08 21:26] LABS: Absolute Lymphocyte Count 2.88 X10^3/uL (0.83-4.51); Absolute Neutrophil Count 4.3 X10^3/uL (2.0-7.7); Basophil# 0.07 X10^3/uL; Basophil% 0.9 % (0-1); Eosinophil# 0.22 X10^3/uL; Eosinophils% 2.7 % (0-5); Hematocrit 36.3 % (37-47); Hemoglobin 11.3 g/dL (12.0-15.0); Lymphocyte # 2.88 X10^3/ul (0.83-4.51); Lymphocyte % 35.3 % (19-41); Mean Corp Hgb Conc 31.1 g/dL (32-36); Mean Corpuscular Hgb 27.1 pg (27.0-32.0); Mean Corpuscular Volume 87.1 fL (81-99); Mean Platelet Vol. 10.1 fl (6.2-12.0); Monocyte# 0.67 X10^3/uL; Monocyte% 8.2 % (0-10); NRBC Flagged by Analyzer 0 % (0-5); Neutrophil # 4.31 X10^3/uL (2.7-7.7); Neutrophil % 52.8 % (47-70); Platelet Count 341 K/mm3 (150-450); RBC Distribution Width CV 15.8 % (11.6-14.6); RBC Distribution Width SD 50.1 fl (35.1-43.9); Red Blood Count 4.17 M/mm3 (4.2-5.4); White Blood Count 8.2 K/mm3 (4.4-11.0)
[2024-07-08] MEDS: 0.9% Normal Saline (1000mL) 1,000 ML 1000 ML IV (21:32)
[2024-07-08 21:48] LABS: AST(SGOT) 242 U/L (15-37); Alanine Aminotransfer ALT/SGPT 256 U/L (13-56); Albumin, Serum 3.5 g/dL (3.2-5.0); Alkaline Phosphatase 199 U/L (45-117); Anion Gap 9 (5-15); BUN 39 mg/dL (7-18); BUN/Creat Ratio 36.8 RATIO (10-20); Bilirubin, Direct 0.11 mg/dL (0.00-0.30); Calcium,Total 9.8 mg/dL (8.5-10.1); Chloride 100 mmol/L (98-107); Creatinine, Serum 1.06 mg/dL (0.55-1.02); EST Glomerular Filtration Rate 60 mL/min (>60); Est Glom Filt Rate - Afr Amer 73 mL/min (>60); Estimated Creatinine Clearance 66.55 ml/min; Globulin 4.4 g/dL (2.2-4.2); Glucose 96 mg/dL (74-106); Potassium 4.2 mmol/L (3.5-5.1); Protein, Total 7.9 g/dL (6.4-8.2); Sodium Level 136 mmol/L (136-145)
[2024-07-08 22:41] VITALS: BP 93/63; PULSE 78; RESP 16; TEMP 36.7; O2SAT 97
[2024-07-08 23:07] VITALS: BP 96/68; PULSE 78; RESP 16; TEMP 36.6; O2SAT 97
== END 2024-07-08 23:08 | disposition home or self-care (01) ==
PROVIDERS: Emergency Provider Emergency Medicine; PCP Family Medicine; Visit Provider Emergency Medicine
DX: I95.9 Hypotension, unspecified (principal); E11.9 Type 2 diabetes mellitus without complications; I10 Essential (primary) hypertension; K21.9 Gastro-esophageal reflux disease without esophagitis; Z79.899 Other long term (current) drug therapy; Z79.84 Long term (current) use of oral hypoglycemic drugs; Z90.49 Acquired absence of other specified parts of digestive tract; Z90.710 Acquired absence of both cervix and uterus; Z98.51 Tubal ligation status; R19.7 Diarrhea, unspecified; J18.9 Pneumonia, unspecified organism; N28.9 Disorder of kidney and ureter, unspecified; R74.01 Elevation of levels of liver transaminase levels; Z98.84 Bariatric surgery status
CPT/HCPCS: 80048; 80076; 85025; 93005; 96360; 99283; J7030

== ENCOUNTER 2024-11-26 13:16 | Inpatient (IN) | payer OTHER, SELFPAY ==
[2024-11-26] VITALS (19 sets, daily range): BP systolic 58–107; BP diastolic 43–75; PULSE 60–89; RESP 12–20; TEMP 36.4–37.2; O2SAT 95–100; BMI 23.9; BMI 24.7
--- NOTE | 2024-11-26 13:59 | EKG12_ITS ---
Test Reason : HYPOTENSION Blood Pressure : */* mmHG Vent. Rate : 69 BPM Atrial Rate : 69 BPM P-R Int : 190 ms QRS Dur : 84 ms QT Int : 402 ms P-R-T Axes : 49 81 79 degrees QTcB Int : 430 ms Normal sinus rhythm Normal ECG Confirmed by MANAN LANDAVERDE, KIKA ([id number]), makeup editor NEELIMA MONTOYA ([id number]) on 11/27/2024 6:56:45 AM Referred By: Rich Olivares Confirmed By: KIKA HINKLE MD
--- NOTE | 2024-11-26 14:00 | EX.ED.DYSGE1 ---
HPI History of Present Illness Chief Complaint: Syncope Narrative Narrative: 44-year-old female presents with near syncope and syncopal episodes and low blood pressure. She and her relate history that remotely she was hospitalized for 47 days for dehydration and malnutrition with low albumin because she had strictures in her stomach that was not allowing food to pass. She had that problem resolved. However, over the last 6 months she has had low blood pressure. She has an appointment later on in the week as she might have POTS. Yesterday, they report that she spiked a fever of 103 degrees. She went to her primary care provider who wrote her prescription for Tamiflu assuming that she had influenza. They have not picked up the prescription yet. She has been able to hold down Tylenol. She presents with near syncope and reported syncopal episodes that have increased over the last few days. She states she passes out for 30 to 60 seconds. At times she stands becomes very lightheaded and near syncopal. She also feels heart palpitations. PFSH PFSH Medical History Asthma DVT (deep venous thrombosis) Paroxysmal hemicrania Ulcer History of stress test Hearing loss, left Diabetes GI bleed Migraines Kidney stones Back pain Syncope History of irregular heartbeat Nausea & vomiting Anastomotic ulcer Wears glasses Anemia Migraine headache History of ulceration Gastric reflux History of echocardiogram Hypertension Cardiology follow-up encounter Abdominal pain Non-smoker Home Medications ?Medication ?Instructions ?Recorded ?Last Taken ?Type gabapentin 300 mg capsule 900 mg PO TID 05/18/18 11/26/24 History scopolamine base 1 mg over 3 days 1 patch transdermal Q3D PRN nausea 05/02/22 Unknown Rx transdermal patch and vomiting #24 ea pantoprazole 40 mg tablet,delayed See Rx Instructions .Route 07/18/22 11/26/24 Rx release .COMPLEX #90 tabs albuterol sulfate 90 mcg/actuation 2 puff inhalation Q4H PRN PRN 07/29/23 Unknown Rx aerosol inhaler (Ventolin HFA) Wheezing ##1 benzonatate 200 mg capsule 200 mg PO BID PRN cough #14 caps 07/29/23 Unknown Rx empagliflozin 25 mg tablet 25 mg PO DAILY 07/08/24 11/26/24 History (Jardiance) melatonin 10 mg capsule 20 mg PO QHS 07/08/24 11/25/24 History metformin 500 mg tablet 500 mg PO BID 07/08/24 11/26/24 History metoclopramide HCl 10 mg tablet 10 mg PO Q8H PRN PRN nause 07/08/24 11/25/24 History (Reglan) oxycodone 10 mg tablet 10 mg PO 4X/DAY PRN PRN pain 07/08/24 11/25/24 History tizanidine 4 mg tablet 4 mg PO Q12H PRN muscle spasticity 07/08/24 11/25/24 History topiramate 100 mg tablet 100 mg PO DAILY 07/08/24 11/25/24 History Allergy/AdvReac Type Severity Reaction Status Date / Time codeine Allergy Other Verified 11/26/24 13:17 morphine Allergy Hives Verified 11/26/24 13:17 Family History Mother Diabetes Pulmonary embolism Father Diabetes Surgical History History of cholecystectomy S/P hysterectomy History of hysterectomy Hx of colonoscopy Hx of tubal ligation History of surgery Hx of section Gastric bypass status for obesity Social History household members: spouse Smoking Status: Never smoker alcohol intake: never substance use type: does not use ROS ROS ED ROS Narrative Constitutional: Positive fever, no chills. HEENT: No sore throat. No neck pain. No loss of vision. No rhinorrhea. Cardiovascular: No chest pain. Positive palpitations. No pedal edema. Respiratory: No cough, no shortness of breath. Abdominal: No abdominal pain. No nausea. No vomiting. Genitourinary: No dysuria. No hematuria. Musculoskeletal: No myalgias. No arthralgias. Neurologic: No headaches. Positive lightheadedness, positive dizziness, reported syncopal episodes and near syncopal episodes. Skin: No rash. No change in color. Psychiatric: No depression. No anxiety. EXAM Physical Exam Narrative Exam Narrative: Afebrile. Vital signs noted. Nontoxic-appearing. Appears generally weak. Cardiovascular examination reveals a regular rate and rhythm. Lungs clear to auscultation bilaterally anteriorly. Abdomen is soft nontender, positive bowel sounds. Neurological examination shows her to be awake, alert, and oriented. Const Vital Signs: 11/26/24 13:17 11/26/24 13:34 02/05/25 14:33 Temperature 98.9 F Temperature Source Temporal Oral Pulse Rate 89 69 68 Respiratory Rate 13 18 Blood Pressure 58/43 L 78/58 L 85/61 L Blood Pressure Mean 48 64 69 Pulse Ox 95 98 Oxygen Delivery Method Room Air Room Air 11/26/24 15:00 11/26/24 16:00 Temperature Temperature Source Pulse Rate 74 75 Respiratory Rate 14 20 H Blood Pressure 107/75 92/71 Blood Pressure Mean 85 78 Pulse Ox 98 99 Oxygen Delivery Method Room Air MDM MDM MDM Narrative Medical decision making narrative: Differential diagnosis includes but not limited to POTS versus sepsis versus dehydration versus other electrolyte abnormality. Her initial blood pressure in triage was 58/43, and while being bolused IV fluids is 78/58. I do not feel orthostatics are indicated as she is already hypotensive. Will check a CBC and a CMP. They are concerned about her albumin level being low again. She states that she has been eating and drinking. She is not meeting other SIRS criteria as she is not tachycardic nor is she febrile here. Review of her previous ED visits show that she had gastric bypass surgery back in 2009. I reviewed her laboratory work and she has a leukocytosis of 19.0 with hemoglobin stable at 11.0, hematocrit 35.1, platelet count normal at 358. CMP is remarkable for slightly low sodium of 135 with BUN of 22 and creatinine 1.08. Glucose elevated appropriately at 155 with normal anion gap of 7. She was concerned about her LFTs as well as she has been in the past, AST low at 12 and ALT normal at 22 with alk phos 95. Regarding her albumin level, decided low at 2.8 but has been much lower in the past. She will be bolused a second liter of normal saline as she has required 2 L in the past as well. EKG obtained interpreted by myself independently as normal sinus rhythm at 69 bpm without ectopy or acute ST changes. No STEMI. QTc normal at 430 ms. Lactic acid returned slightly elevated 2.2. Serum is negative. On my individual interpretation of the chest x-ray, I do not see a discrete pneumonia but fullness of the left hilar region. No pneumothorax. However, on review of the radiology report, she has a focal nodular infiltrate in the left suprahilar region. While her urinalysis is pending, she has transient hypotension and her systolic was 107/75. She will be treated with azithromycin and ceftriaxone, discussed with the hospitalist for admission for her leukocytosis, lactic acidosis, and pneumonia. She has improved blood pressure, but given her labile blood pressure and intermittent transient hypotension, patient will be admitted to the ICU after discussion with Dr. Amy Graham. Was not really felt that she was meeting sepsis criteria she is not tachycardic. Although she has a leukocytosis and a lactic acidosis, lactic acid is only slightly elevated. She is in guarded condition. History & Record Review Discussion w/independent historian: Patient and Family Lab Data Attestation: I reviewed the patient's lab results. Labs: Laboratory Results - last 24 hr 11/26/24 11/26/24 11/26/24 13:34 14:09 14:29 WBC 19.0 H RBC 3.92 L Hgb 11.0 L Hct 35.1 L MCV 89.5 MCH 28.1 MCHC 31.3 L RDW Std Deviation 52.4 H RDW Coeff of Katelynn 15.9 H Plt Count 358 MPV 11.2 Immature Gran % (Auto) 0.700 Neut % (Auto) 76.0 H Lymph % (Auto) 13.2 L Yancey % (Auto) 9.2 Eos % (Auto) 0.3 Baso % (Auto) 0.6 Absolute Neuts (auto) 14.4 H Absolute Lymphs (auto) 2.50 Nucleated RBC % 0 Sodium 135 L Potassium 4.8 Chloride 104 Carbon Dioxide 24.0 Anion Gap 7 BUN 22 H Creatinine 1.08 H Estim Creat Clear Calc 65.32 Est GFR (MDRD) Af Amer 71 Est GFR (MDRD) Non-Af 59 L BUN/Creatinine Ratio 20.4 H Glucose 155 H Lactic Acid 2.2 H* Calcium 9.2 Total Bilirubin 0.30 AST 12 L ALT 22 Alkaline Phosphatase 95 Troponin I High Sens 4 Total Protein 6.9 Albumin 2.8 L Globulin 4.1 Albumin/Globulin Ratio 0.7 L Serum , Qual NEGATIVE Urine Color Urine Clarity Urine pH Ur Specific [place] Urine Protein Urine Glucose (UA) Urine Ketones Urine Occult Blood Urine Nitrite Urine Bilirubin Urine Urobilinogen Ur Leukocyte Esterase Urine RBC Urine WBC Ur Squamous Epith Cells Urine Bacteria Urine Mucus 11/26/24 16:00 WBC RBC Hgb Hct MCV MCH MCHC RDW Std Deviation RDW Coeff of Katelynn Plt Count MPV Immature Gran % (Auto) Neut % (Auto) Lymph % (Auto) Yancey % (Auto) Eos % (Auto) Baso % (Auto) Absolute Neuts (auto) Absolute Lymphs (auto) Nucleated RBC % Sodium Potassium Chloride Carbon Dioxide Anion Gap BUN Creatinine Estim Creat Clear Calc Est GFR (MDRD) Af Amer Est GFR (MDRD) Non-Af BUN/Creatinine Ratio Glucose Lactic Acid Calcium Total Bilirubin AST ALT Alkaline Phosphatase Troponin I High Sens Total Protein Albumin Globulin Albumin/Globulin Ratio Serum , Qual Urine Color Yellow Urine Clarity Clear Urine pH 7.0 Ur Specific [place] 1.010 Urine Protein 30 H Urine Glucose (UA) 1000 H Urine Ketones Negative Urine Occult Blood Negative Urine Nitrite Negative Urine Bilirubin Negative Urine Urobilinogen Normal Ur Leukocyte Esterase 25 H Urine RBC 0 SEEN Urine WBC 0 SEEN Ur Squamous Epith Cells 0 SEEN Urine Bacteria 0 SEEN Urine Mucus 0 SEEN Radiography Chest X-Ray - ED: 1 View, Read by ED Physician and Read by Radiologist Diagnostic Testing: Clinical Impression(s) from Imaging Studies Chest X-Ray 11/26/24 14:40 IMPRESSION: Focal nodular infiltrate is seen in the left suprahilar region. Radiographic follow-up recommended. Reading Location: [place] [id number] Management Discussion w/another healthcare provider: Hospitalist (Dr. Amy Graham) Discharge Plan Dx/Rx/DC Orders Clinical Impression: Pneumonia, Lactic acidosis, Acute hypotension, Leukocytosis, History of gastric bypass Disposition Disposition: [facility] Discharge Date/Time: 11/26/24 19:50
[2024-11-26 14:09] LABS: Absolute Neutrophil Count 14.4 X10^3/uL (2.0-7.7); Basophil# 0.11 X10^3/uL; Basophil% 0.6 % (0-1); Eosinophil# 0.05 X10^3/uL; Eosinophils% 0.3 % (0-5); Hematocrit 35.1 % (37-47); Lymphocyte % 13.2 % (19-41); Mean Corp Hgb Conc 31.3 g/dL (32-36); Mean Corpuscular Hgb 28.1 pg (27.0-32.0); Mean Corpuscular Volume 89.5 fL (81-99); Mean Platelet Vol. 11.2 fl (6.2-12.0); Monocyte# 1.74 X10^3/uL; Monocyte% 9.2 % (0-10); NRBC Flagged by Analyzer 0 % (0-5); Neutrophil # 14.41 X10^3/uL (2.7-7.7); POSITIVE DIFFERENTIAL YES; Platelet Count 358 K/mm3 (150-450); RBC Distribution Width CV 15.9 % (11.6-14.6); RBC Distribution Width SD 52.4 fl (35.1-43.9); Red Blood Count 3.92 M/mm3 (4.2-5.4)
[2024-11-26 14:13] LABS: Differential Indicated SCAN CRITERIA MET
[2024-11-26 14:30] LABS: ALB/GLOB Ratio 0.7 RATIO (0.9-2.4); AST(SGOT) 12 U/L (15-37); Alanine Aminotransfer ALT/SGPT 22 U/L (13-56); Albumin, Serum 2.8 g/dL (3.2-5.0); Alkaline Phosphatase 95 U/L (45-117); Anion Gap 7 (5-15); BUN 22 mg/dL (7-18); BUN/Creat Ratio 20.4 RATIO (10-20); Calcium,Total 9.2 mg/dL (8.5-10.1); Chloride 104 mmol/L (98-107); Creatinine, Serum 1.08 mg/dL (0.55-1.02); EST Glomerular Filtration Rate 59 mL/min (>60); Est Glom Filt Rate - Afr Amer 71 mL/min (>60); Estimated Creatinine Clearance 65.32 ml/min; Globulin 4.1 g/dL (2.2-4.2); Glucose 155 mg/dL (74-106); Potassium 4.8 mmol/L (3.5-5.1); Protein, Total 6.9 g/dL (6.4-8.2); Sodium Level 135 mmol/L (136-145); Troponin-I HS 4 pg/mL (3.0-54.0)
[2024-11-26] MEDS: 0.9% Normal Saline (1000mL) 1,000 ML 1000 ML IV (14:34)
[2024-11-26] MEDS: 0.9% Normal Saline (1000mL) 1,000 ML 999 ML IV ×2 (14:36→19:33)
--- NOTE | 2024-11-26 14:40 | RAD_ITS ---
PROCEDURE: CHEST 1 VIEW (PORTABLE) REASON FOR EXAM: Syncopal episodes. TECHNIQUE: Frontal view of the chest. COMPARISON: Comparison is made with prior study dated July 29, 2023. FINDINGS: EKG electrodes are seen. Focal nodular density in the left suprahilar region. This may represent focal infiltrate. Radiographic follow-up recommended. RAD/Chest 1 View (Portable) IMPRESSION: Focal nodular infiltrate is seen in the left suprahilar region. Radiographic f ollow-up recommended. Reading Location: [place] [id number]
[2024-11-26 14:55] LABS: Internal QC Validated? YES +Cl - CLEAR BKGD; Pregnancy, Serum, hCG Quali. NEGATIVE Negative
[2024-11-26 15:08] LABS: Lactic Acid 2.2 mmol/L (0.4-1.9)
--- NOTE | 2024-11-26 16:06 | PCM.HP.STD ---
HPI - General General Date of Service: 11/26/24 Chief Complaint: Near-syncope and syncope HPI Narrative ZAN HANKS, is a 44-year-old female with history of GERD, history of gastric bypass surgery in 2009, and diabetes and previous prolonged hospitalization due to dehydration and malnutrition because of strictures in her stomach presented [facility] ED 11/26/2024 due to syncope. Over the last 6 months she has had low blood pressure and is supposed to follow-up later this week on an outpatient basis to be evaluated for POTS. Yesterday however she spiked a fever of 103 degrees and her PCP ordered prescription for Tamiflu under the assumption she had influenza. Her syncopal near syncopal episodes have been increased over the past couple of days so she presented to the ED. In the ED initial blood pressure 58/43 and she was bolused with improvement in blood pressure to 78/58. Patient's white blood cell count found to be 19, slightly low sodium of 135 with a BUN of 22 and creatinine 1.08 and hemoglobin 11. Chest x-ray resulted with suspected left suprahilar infiltrates with patient given Rocephin and azithromycin and given her low blood pressure and pneumonia hospitalist contacted for admission. Patient evaluated bedside and reports the problem with low blood pressure over the past 6 months but that she has been having more problems over the past several days, also has had a little bit of a cough with some sputum over the past week and sometimes will feel little bit short of breath that this is mostly when her blood pressure is low she will also get headaches and some pain in her chest with decreased vision when her blood pressure is extremely low but this is not overly changed. Did have fever yesterday and reports she had a temp of 103 overnight as well but has been taking Tylenol today and queries if that is why she has not had another fever. She reports she gets pneumonia every 6 weeks or so and is treated with antibiotics and improves. [facility] Medical History Asthma DVT (deep venous thrombosis) Paroxysmal hemicrania Ulcer History of stress test Hearing loss, left Diabetes GI bleed Migraines Kidney stones Back pain Syncope History of irregular heartbeat Nausea & vomiting Anastomotic ulcer Wears glasses Anemia Migraine headache History of ulceration Gastric reflux History of echocardiogram Hypertension Cardiology follow-up encounter Abdominal pain Non-smoker Home Medications ?Medication ?Instructions ?Recorded ?Last Taken ?Type gabapentin 300 mg capsule 900 mg PO TID 05/18/18 11/26/24 History scopolamine base 1 mg over 3 days 1 patch transdermal Q3D PRN nausea 05/02/22 Unknown Rx transdermal patch and vomiting #24 ea pantoprazole 40 mg tablet,delayed See Rx Instructions .Route 07/18/22 11/26/24 Rx release .COMPLEX #90 tabs albuterol sulfate 90 mcg/actuation 2 puff inhalation Q4H PRN PRN 07/29/23 Unknown Rx aerosol inhaler (Ventolin HFA) Wheezing ##1 benzonatate 200 mg capsule 200 mg PO BID PRN cough #14 caps 07/29/23 Unknown Rx empagliflozin 25 mg tablet 25 mg PO DAILY 07/08/24 11/26/24 History (Jardiance) melatonin 10 mg capsule 20 mg PO QHS 07/08/24 11/25/24 History metformin 500 mg tablet 500 mg PO BID 07/08/24 11/26/24 History metoclopramide HCl 10 mg tablet 10 mg PO Q8H PRN PRN nause 07/08/24 11/25/24 History (Reglan) oxycodone 10 mg tablet 10 mg PO 4X/DAY PRN PRN pain 07/08/24 11/25/24 History tizanidine 4 mg tablet 4 mg PO Q12H PRN muscle spasticity 07/08/24 11/25/24 History topiramate 100 mg tablet 100 mg PO DAILY 07/08/24 11/25/24 History Allergy/AdvReac Type Severity Reaction Status Date / Time codeine Allergy Other Verified 11/26/24 13:17 morphine Allergy Hives Verified 11/26/24 13:17 Family History Mother Diabetes Pulmonary embolism Father Diabetes Surgical History History of cholecystectomy S/P hysterectomy History of hysterectomy Hx of colonoscopy Hx of tubal ligation History of surgery Hx of section Gastric bypass status for obesity Social History household members: spouse Smoking Status: Never smoker alcohol intake: never substance use type: does not use ROS ROS Narrative General: Some fevers HENT: Intermittent headaches EYES: Intermittent blurry vision Resp: Little bit of a cough with sputum over the past week, intermittently will get some shortness of breath Cardiac: Will feel some pain in her chest when her blood pressure drops significantly GI: Little bit of chronic abdominal pain, has a feeding tube, denies changes in bowel, denies nausea/vomiting : Denies changes in urination Extremity: Denies swelling MSK: Generalized weakness Neuro: Denies any numbness/tingling Heme: Denies any bleeding or bruising Skin: Denies rashes Psychiatric: No complaints voiced Vital Signs Vital Signs Vital Signs: 11/26/24 13:17 11/26/24 13:34 11/26/24 14:33 Temperature 98.9 F Temperature Source Temporal Oral Pulse Rate 89 69 68 Respiratory Rate 13 18 Blood Pressure 58/43 L 78/58 L 85/61 L Blood Pressure Mean 48 64 69 Pulse Ox 95 98 Oxygen Delivery Method Room Air Room Air 11/26/24 15:00 Temperature Temperature Source Pulse Rate 74 Respiratory Rate 14 Blood Pressure 107/75 Blood Pressure Mean 85 Pulse Ox 98 Oxygen Delivery Method Room Air Weight Weight: 69.3 kg Body Mass Index (BMI) 23.9 Physical Exam Narrative General: Alert, oriented, appears tired HEENT: Atraumatic, normocephalic Eyes: Anicteric, normal conjunctiva, extraocular movements grossly intact Neck: Supple Respiratory: No overt wheezes or rhonchi, normal respiratory effort Cardiovascular: Regular rate and rhythm GI: Soft, nontender, nondistended Extremities: No edema Musculoskeletal: Moving all extremities Neuro: No overt focal neurological deficits Skin: No rashes appreciated Psych: Cooperative Results Lab / Micro Data 11/26/24 13:34 11/26/24 13:34 Labs: Laboratory Results - last 24 hr 11/26/24 13:34: WBC 19.0 H, RBC 3.92 L, Hgb 11.0 L, Hct 35.1 L, MCV 89.5, MCH 28.1, MCHC 31.3 L, RDW Std Deviation 52.4 H, RDW Coeff of Katelynn 15.9 H, Plt Count 358, MPV 11.2, Immature Gran % (Auto) 0.700, Neut % (Auto) 76.0 H, Lymph % (Auto) 13.2 L, [place] % (Auto) 9.2, Eos % (Auto) 0.3, Baso % (Auto) 0.6, Absolute Neuts (auto) 14.4 H, Absolute Lymphs (auto) 2.50, Nucleated RBC % 0, Sodium 135 L, Potassium 4.8, Chloride 104, Carbon Dioxide 24.0, Anion Gap 7, BUN 22 H, Creatinine 1.08 H, Estim Creat Clear Calc 65.32, Est GFR (MDRD) Af Amer 71, Est GFR (MDRD) Non-Af 59 L, BUN/Creatinine Ratio 20.4 H, Glucose 155 H, Calcium 9.2, Total Bilirubin 0.30, AST 12 L, ALT 22, Alkaline Phosphatase 95, Troponin I High Sens 4, Total Protein 6.9, Albumin 2.8 L, Globulin 4.1, Albumin/Globulin Ratio 0.7 L 11/26/24 14:09: Lactic Acid 2.2 H* 11/26/24 14:29: Serum , Qual NEGATIVE Micro: Microbiology 11/26/24 14:09 Mucosa - Nose SARS-CoV-2, Influenza & RSV (PCR) - Final Imaging Radiology Impression Chest X-Ray 11/26/24 14:40 IMPRESSION: Focal nodular infiltrate is seen in the left suprahilar region. Radiographic follow-up recommended. Reading Location: [facility]--1 Assessment & Plan Assessment/Plan (1) Leukocytosis: (2) Acute hypotension: (3) Pneumonia: PLAN: Plan # Pneumonia -Imaging: Chest x-ray with left perihilar infiltrate -DuoNebs and as needed albuterol -Sputum culture, COVID negative, respiratory panel ordered -Urine antigens -Mucinex, I/S -Given patient's history of hospitalizations for pneumonia and antibiotic use feel she should be covered more broadly, will cover with Zosyn and azithromycin # Hypotension -Component of this is chronic however patient was 58/43 on arrival, increased to 107/75 with IV fluids and seems to vacillate -Her hypotension may be combination of infection with volume depletion and possibly component of autonomic instability given the chronic component and additionally it appears patient has been on gabapentin and oxycodone since at least May of last year so polypharmacy may be contributing as well, will add blood pressure holding parameters for gabapentin and oxycodone -Blood cultures were obtained and will continue antibiotics and monitor cultures but patient with minimally elevated lactic acid that was drawn before second liter of fluid at 2.2 and elevated white blood cell count but is not tachycardic, has not been febrile here, not tachypneic or resp failure and does not have decreased platelets, increased creatinine, elevated total bili or other lab findings or vital findings that would point to diagnosis of sepsis at this time -Will start patient on midodrine -Will be important for patient to continue to follow-up with her outpatient physicians for further workup -Will continue maintenance IV fluids at this time # Chronic syncope/presyncope -Patient had significantly low blood pressure on arrival -Suspect this is the cause of her syncopal episodes, overarching/underlying reason for this chronically will need further outpatient workup but at this time we will continue IV fluids and treat underlying infection in the event this is contributing #Type 2 diabetes mellitus -Glucose checks and sliding scale insulin -Hold home oral hypoglycemics #GERD -Continue PPI # History of gastric bypass surgery -Back in 2009 # Feeding tube in place -Patient does both oral and feeding tube, will place nutrition consult #DVT ppx: Lovenox subcu Amy Graham MD Charges/Coding Visit Charges Inpatient E&M: 70962 Init Hosp L2
[2024-11-26 16:07] LABS: Bacteria 0 SEEN /hpf (None Seen); Mucous, Urine 0 SEEN /hpf (<or=2+); Red Blood Cells-Urine 0 SEEN /hpf (0-5); Squamous Epithelial Cells - UA 0 SEEN /hpf (5-10); White Blood Cells 0 SEEN /hpf (0-5)
[2024-11-26] MEDS: Azithromycin 500 MG in 0.9% Normal Saline (250mL Bag) 250 ML 255 MG IV (16:14)
[2024-11-26 16:19] LABS: Color, Urine Yellow (Yellow); Glucose, Dipstick 1000 mg/dl (Normal); Ketone-Dipstick Negative (Negative); Leukocyte Esterase-Dipstick 25 /ul (Negative); Nitrite-Dipstick Negative (Negative); Occult Blood-Urine Negative /ul (Negative); Protein-Dipstick 30 mg/dl (Negative); Urine Bilirubin Dipstick Negative (Negative); Urine Clarity Clear (Clear); Urine Urobilinogen Normal (Normal)
[2024-11-26] MEDS: Ceftriaxone 2 GM in 0.9% Normal Saline (50mL MB+) 50 ML IV (17:30)
[2024-11-26 18:13] LABS: Reflex Lactate? Y
--- NOTE | 2024-11-26 19:09 | ED.RN ---
Dr. Olivares notified of last 2 blood pressures with Sys. in high 70s. Current pressure 83/61 with a MAP of 69. No further orders at this time.
--- NOTE | 2024-11-26 19:47 | PN.HOSP_ITS ---
Hospitalist Note Patient initially improved after fluid resuscitation however appears that blood pressure down trended again despite adequate fluid resuscitation, concerns that she is in fact septic, plan is already for patient to go to ICU, midodrine had been ordered but it has not been received, patient was also switched to Zosyn for broader coverage and vancomycin ordered. Will place order for low-dose peripheral Levophed, also consult electronic semiconductor processor Sepsis Attestation Sepsis Alert: Yes Sepsis Attestation: Agree w/Sepsis Date exam was performed: 11/26/24 Time exam was performed: 16:00 Possible Source of Sepsis: Pulmonary Sepsis Organ Dysfunction Criteria Present: SBP < 90 mmHg or MAP < 65 mmHg and Lactic Acid > 2 mmol/L Fluid Resuscitation Fluid resuscitation indicated?: Yes Fluid Resuscitation ordered: 30 ml/kg fluid bolus ordered Amount of fluid ordered: 3,000 Sepsis Note Date exam was performed: 11/26/24 Time exam was performed: 19:52 Sepsis Attestation: Sepsis re-evaluation was performed Response to fluids: Non Fluid responsive hypotension and Vasopressors started
[2024-11-26] MEDS: Ipratropium/Albuterol Sulfate 3 ML AMPUL.NEB INHALATION (20:41)
[2024-11-26] MEDS: Acetaminophen 325 MG Tablet 650 MG PO (21:10)
[2024-11-26] MEDS: Midodrine HCl 5 MG Tablet 10 MG PO (21:11)
[2024-11-26] MEDS: 0.9% Normal Saline (1000mL) 1,000 ML 75 ML IV (21:12)
[2024-11-26] MEDS: Hydrocortisone Sod Succinate 100 MG/2 ML Vial 50 MG IV (21:17)
[2024-11-26] MEDS: guaiFENesin 1,200 MG Tablet 1200 MG PO (21:18)
[2024-11-26] MEDS: Pantoprazole Sodium 40 MG Tablet PO (21:18)
[2024-11-26] MEDS: MELATONIN 10 MG TABLET PO (21:18)
[2024-11-26] MEDS: Vancomycin HCl 1,750 MG in 0.9% Normal Saline (500mL Bag) 500 ML 250 MG IV (22:14)
[2024-11-27] VITALS (20 sets, daily range): BP systolic 88–146; BP diastolic 53–109; PULSE 65–100; RESP 15–22; TEMP 36.1–36.5; O2SAT 96–100; BMI 24.7
--- NOTE | 2024-11-27 00:24 | PCM.RX.CS ---
Consult Antibiotic Management Pharmacy has been consulted to manage selected antibiotic: Vancomycin Type of Intervention Type of Consult: New start Labs Labs: Sodium 135 mmol/L (136-145) L 11/26/24 13:34 Potassium 4.8 mmol/L (3.5-5.1) 11/26/24 13:34 Chloride 104 mmol/L (98-107) 11/26/24 13:34 Carbon Dioxide 24.0 mmol/L (21.0-32.0) 11/26/24 13:34 Anion Gap 7 (5-15) 11/26/24 13:34 BUN 22 mg/dL (7-18) H 11/26/24 13:34 Creatinine 1.08 mg/dL (0.55-1.02) H 11/26/24 13:34 Est GFR (MDRD) Af Amer 71 mL/min (>60) 11/26/24 13:34 Est GFR (MDRD) Non-Af 59 mL/min (>60) L 11/26/24 13:34 BUN/Creatinine Ratio 20.4 RATIO (10-20) H 11/26/24 13:34 Glucose 155 mg/dL (74-106) H 11/26/24 13:34 Microbiology Microbiology: Microbiology 11/26/24 20:37 Mucosa - Nasopharyngeal Respiratory Panel (PCR) - Final 11/26/24 16:00 Urine, Random Legionella Antigen - Final 11/26/24 16:00 Urine, Random Streptococcus pneumoniae Antigen (M - Final 11/26/24 14:09 Mucosa - Nose SARS-CoV-2, Influenza & RSV (PCR) - Final Dosing Weight Weight used for dosin.7 kg Estimated Creatinine Clearance Estimated Creatinine Clearance: 65.32 Goal Trough Goal Trough: 15-20 mcg/mL Pharmacy Plan for Drug Dosing Pharmacy Plan for Drug Dosing: Pharmacy Service will continue to monitor and adjust dosing as required. 1750MG ER DOSE GIVEN @ 4. START 750MG Q12H AND DRAW TROUGH PRIOR TO 4TH DOSE Follow-Up Labs Follow-Up Labs: Trough: Vancomycin Date/Time Labs Ordered Labs to be done on [date and time ordered]: 11/28 @ 1000
[2024-11-27] MEDS: Hydrocortisone Sod Succinate 100 MG/2 ML Vial 50 MG IV ×5 (00:27→23:11)
[2024-11-27] MEDS: Piperacil/Tazobactam 3.375 GM in 0.9% Normal Saline (50mL MB+) 50 ML IV ×4 (00:27→22:02)
[2024-11-27] MEDS: oxyCODONE 5 MG Tablet PO ×4 (00:36→23:24)
[2024-11-27 01:07] LABS: Lactic Acid 1.3 mmol/L (0.4-1.9)
[2024-11-27] MEDS: Ipratropium/Albuterol Sulfate 3 ML AMPUL.NEB INHALATION ×4 (01:32→19:21)
[2024-11-27] MEDS: 0.9% Saline Lock 10 ML Syringe IV ×3 (05:56→23:11)
[2024-11-27] MEDS: Acetaminophen 325 MG Tablet 650 MG PO ×2 (06:02→12:51)
[2024-11-27 06:20] LABS: Absolute Lymphocyte Count 0.67 X10^3/uL (0.83-4.51); Absolute Neutrophil Count 12.9 X10^3/uL (2.0-7.7); Basophil# 0.03 X10^3/uL; Basophil% 0.2 % (0-1); Hematocrit 29.5 % (37-47); Hemoglobin 9.2 g/dL (12.0-15.0); Lymphocyte # 0.67 X10^3/ul (0.83-4.51); Lymphocyte % 4.8 % (19-41); Mean Corp Hgb Conc 31.2 g/dL (32-36); Mean Corpuscular Volume 89.9 fL (81-99); Monocyte# 0.22 X10^3/uL; Monocyte% 1.6 % (0-10); NRBC Flagged by Analyzer 0 % (0-5); Neutrophil # 12.88 X10^3/uL (2.7-7.7); Neutrophil % 92.5 % (47-70); Platelet Count 262 K/mm3 (150-450); RBC Distribution Width CV 16.2 % (11.6-14.6); RBC Distribution Width SD 53.9 fl (35.1-43.9); Red Blood Count 3.28 M/mm3 (4.2-5.4); White Blood Count 13.9 K/mm3 (4.4-11.0)
[2024-11-27 06:38] LABS: Anion Gap 11 (5-15); BUN 16 mg/dL (7-18); BUN/Creat Ratio 21.1 RATIO (10-20); Calcium,Total 7.8 mg/dL (8.5-10.1); Chloride 112 mmol/L (98-107); Creatinine, Serum 0.76 mg/dL (0.55-1.02); EST Glomerular Filtration Rate 88 mL/min (>60); Est Glom Filt Rate - Afr Amer 107 mL/min (>60); Estimated Creatinine Clearance 92.82 ml/min; Glucose 158 mg/dL (74-106); Potassium 3.3 mmol/L (3.5-5.1); Sodium Level 140 mmol/L (136-145)
[2024-11-27] MEDS: Midodrine HCl 5 MG Tablet 10 MG PO ×2 (07:59→12:51)
--- NOTE | 2024-11-27 09:55 | PN.HOSP_ITS ---
Reason for Visit Reason for Visit: Diagnoses Elevated white blood cell count, unspecified (11/26/24) Hypotension, unspecified (11/26/24) Pneumonia, unspecified organism (11/26/24) Subjective Subjective Patient is a 44-year-old lady with history of chronic hypotension who presented to the emergency department after passing out. Patient was found to have elevated WBC count. Chest x-ray x-ray also did show Focal nodular infiltrate is seen in the left suprahilar region. Patient was found to have elevated lactic acid Objective Data Objective Data Vital Signs: Vital Signs Temp Pulse Resp BP Pulse Ox O2 Del Method 97.5 F L 83 18 100/68 97 Room Air 11/27/24 04:00 11/27/24 07:12 11/27/24 07:12 11/27/24 07:00 11/27/24 07:12 11/27/24 07:12 Oxygen Delivery Method Room Air Weight: 71.7 kg Body Mass Index (BMI) 24.7 Intake & Output: Intake and Output for Last 24 Hours 11/25/24 11/26/24 11/27/24 23:59 23:59 23:59 Intake Total 3305 / 3305 585 / 585 Balance 3305 / 3305 585 / 585 Lab / Micro Data 11/27/24 05:55 11/27/24 05:55 Labs: Laboratory Results - last 24 hr 11/26/24 13:34: WBC 19.0 H, RBC 3.92 L, Hgb 11.0 L, Hct 35.1 L, MCV 89.5, MCH 28.1, MCHC 31.3 L, RDW Std Deviation 52.4 H, RDW Coeff of Katelynn 15.9 H, Plt Count 358, MPV 11.2, Immature Gran % (Auto) 0.700, Neut % (Auto) 76.0 H, Lymph % (Auto) 13.2 L, [place] % (Auto) 9.2, Eos % (Auto) 0.3, Baso % (Auto) 0.6, Absolute Neuts (auto) 14.4 H, Absolute Lymphs (auto) 2.50, Nucleated RBC % 0, Diff Path Review February, Sodium 135 L, Potassium 4.8, Chloride 104, Carbon Dioxide 24.0, Anion Gap 7, BUN 22 H, Creatinine 1.08 H, Estim Creat Clear Calc 65.32, Est GFR (MDRD) Af Amer 71, Est GFR (MDRD) Non-Af 59 L, BUN/Creatinine Ratio 20.4 H, G lucose 155 H, Calcium 9.2, Total Bilirubin 0.30, AST 12 L, ALT 22, Alkaline Phosphatase 95, Troponin I High Sens 4, Total Protein 6.9, Albumin 2.8 L, Globulin 4.1, Albumin/Globulin Ratio 0.7 L 11/26/24 14:09: Lactic Acid 2.2 H* 11/26/24 14:29: Serum , Qual NEGATIVE 11/26/24 16:00: Urine Color Yellow, Urine Clarity Clear, Urine pH 7.0, Ur Specific [place] 1.010, Urine Protein 30 H, Urine Glucose (UA) 1000 H, Urine Ketones Negative, Urine Occult Blood Negative, Urine Nitrite Negative, Urine Bilirubin Negative, Urine Urobilinogen Normal, Ur Leukocyte Esterase 25 H, Urine RBC 0 SEEN, Urine WBC 0 SEEN, Ur Squamous Epith Cells 0 SEEN, Urine Bacteria 0 SEEN, Urine Mucus 0 SEEN 11/26/24 18:39: Lactic Acid 3.0 H* 11/27/24 00:31: Lactic Acid 1.3 11/27/24 05:55: WBC 13.9 H, RBC 3.28 L, Hgb 9.2 L, Hct 29.5 L, MCV 89.9, MCH 28.0, MCHC 31.2 L, RDW Std Deviation 53.9 H, RDW Coeff of Katelynn 16.2 H, Plt Count 262, MPV 11.0, Immature Gran % (Auto) 0.900, Neut % (Auto) 92.5 H, Lymph % (Auto) 4.8 L, [place] % (Auto) 1.6, Eos % (Auto) 0.0, Baso % (Auto) 0.2, Absolute Neuts (auto) 12.9 H, Absolute Lymphs (auto) 0.67 L, Nucleated RBC % 0, Sodium 140, Potassium 3.3 L, Chloride 112 H, Carbon Dioxide 17.0 L, Anion Gap 11, BUN 16, Creatinine 0.76, Estim Creat Clear Calc 92.82, Est GFR (MDRD) Af Amer 107, Est GFR (MDRD) Non-Af 88, BUN/Creatinine Ratio 21.1 H, Glucose 158 H, Calcium 7.8 L Micro: Microbiology 11/26/24 16:00 Urine, Clean Catch Urine Culture - Preliminary Culture exhibits no growth. 11/26/24 20:37 Mucosa - Nasopharyngeal Respiratory Panel (PCR) - Final 11/26/24 16:00 Urine, Random Legionella Antigen - Final 11/26/24 16:00 Urine, Random Streptococcus pneumoniae Antigen (M - Final 11/26/24 14:09 Mucosa - Nose SARS-CoV-2, Influenza & RSV (PCR) - Final Radiography Diagnostic Testing: Radiology Impression Chest X-Ray 11/26/24 14:40 IMPRESSION: Focal nodular infiltrate is seen in the left suprahilar region. Radiographic follow-up recommended. Reading Location: [place] [id number] Physical Exam Narrative GENERAL: cooperative HEENT: Atraumatic; normocephalic EYES; Anicteric, Normal Conjunctiva NECK; supple, normal thyroid, RESPIRATORY: Diminished to auscultation CARDIOVASCULAR: Regular S1 S2, GI: soft, normoactive bowel sounds, : No Renal angle tenderness; EXTREMITIES: No edema, no clubbing, MUSCULOSKELETAL: no muscle wasting NEURO: Awake; no lateralizing signs. SKIN: No Rash PSYCH; Flat affect Assessment & Plan Assessment/Plan (1) Leukocytosis: (2) Acute hypotension: (3) Pneumonia: PLAN: Plan Patient is a 44-year-old lady with history of chronic hypotension who presented to the emergency department after passing out. Patient was found to have elevated WBC count. Chest x-ray x-ray also did show Focal nodular infiltrate is seen in the left suprahilar region. Patient was found to have elevated lactic acid 1. Sepsis ? Secondary to pneumonia patient treated with IV fluid per protocol broad antibiotic therapy with serial monitoring of electrolyte. 2. Chronic hypotension ? Resuscitated with IV fluid 3. Diabetes mellitus type II -patient's oral hypoglycemics held. Placed on long acting insulin, Accu-Cheks a.c. and at bedtime and covered with sliding scale insulin 4. GERD ? Patient is on PPI 5. History of gastric bypass surgery ? In 2009. Patient BMI on admission was 24.8 6. 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 Patient nutrition is via oral route as well as feeding tube 7. DVT prophylaxis ? On enoxaparin Time spent in the patient's overall evaluation,decision-making process, review of diagnostic data, adjustment of management, discussion with other providers, nursing nursing and ancillary staff involved in patient's care documentation,50 Minutes Charges/Coding Visit Charges Inpatient E&M: 14074 Subs Hosp L3
[2024-11-27] MEDS: Vancomycin HCl 750 MG in 0.9% Normal Saline (250mL Bag) 250 ML 250 MG IV ×2 (10:20→23:21)
[2024-11-27] MEDS: 0.9% Normal Saline (1000mL) 1,000 ML 75 ML IV (10:21)
[2024-11-27] MEDS: Enoxaparin 40 MG/0.4 ML Syringe SC (10:22)
[2024-11-27] MEDS: Pantoprazole Sodium 40 MG Tablet PO ×2 (10:23→22:00)
[2024-11-27] MEDS: guaiFENesin 1,200 MG Tablet 1200 MG PO ×2 (10:23→22:00)
[2024-11-27] MEDS: Azithromycin 500 MG in 0.9% Normal Saline (250mL Bag) 250 ML 255 MG IV (11:03)
[2024-11-27] MEDS: Ondansetron 4 MG/2 ML Vial IV (12:51)
--- NOTE | 2024-11-27 13:10 | CASEMGMT ---
RN CM STONEMASON SUPERVISOR CM?to room to meet with patient for initial transition planning/care coordination assessment. RN CM?introduced self and role at [facility]. Pt voices understanding and consents to assessment?at this time. Pt resting in bed in no distress at this time. , Francis, and son, Dhruv, @ bedside. Pt agreeable to them being present during assessment. Pt is A/O at this time and answers all questions appropriately. Care providers, pharmacy, and demographics verified/updated at this time. Strata:?2 PCP: Dr Mirza Specialists: Dr Zavala-GI @ [facility], Dr Lopez-gen surg @ [facility] (oversees PEG), Dr Bailey-rcis @ [facility], Dr Post-pulm @ [facility], [place], Dr Mckeon-ENT @ [facility]/[place], Dr Abdi-neuro @ [facility], [facility], Dr Del Cid-rcis in [place], Dr Cedeno-podiatry, Dr Barakat-booth usher @ [facility]/[place]. Preferred Pharmacy:[facility] Insurance: [employer] Prescription Benefit: Yes LNOK: , Francis. Living Arrangements: Lives w/ and 2 sons in split-level home. There is a stair lift @ the front door that goes up to the main level, where pt mostly stays. If she is feeling well enough and able to do the stairs, then she will go to lower level at times. Pt is indep w/ADL's and manages her own medications. does most of the home mgnt tasks and pt helps when she is able. Transportation:?Pt drives when she is feeling well enough, but provides most of the transportation. DME: States has the following DME: Pt has a chronic PEG for nutritional support- she uses it @ HS and PRN during the day. She also eats during the day, but states most of her nutrition comes from the PEG. She has a pump and IV pole and has needed supplies/nutrition needed, stating [facility] provides this. She has a functioning Michael CGM w/sufficient supplies, a back-up glucometer w/supplies, shower chair, hospital bed, nebulizer, pules ox, stair lift, BP cuff, W/C. She has a walker and lift chair available, but does not currently use these. Pt states no need for further DME at this time. HHC/SNF: Pt has been to [facility] in [place] (only 2 days), and has had [facility] in the past. She declines need for HHC or OP therapy. Pt wishes to return home and states has no concerns with going home at time of discharge. CM?to follow for any discharge planning/needs. Pt and voice no concerns/needs at this time. Advised them to ask for CM?if any questions/concerns/needs arise. They voice understanding. PLAN: Home w/family support and discharge plans in place. Keila WORTHY RN CM
[2024-11-27 14:41] LABS: Pathologist Review Reviewed
[2024-11-27] MEDS: Gabapentin 300 MG Capsule 600 MG PO ×2 (14:47→22:06)
--- NOTE | 2024-11-27 17:05 | NURSING ---
Report called to ABHI Lin. Patient ready for transfer to [facility].
[2024-11-27] MEDS: Topiramate 100 MG Tablet PO (22:00)
[2024-11-27] MEDS: MELATONIN 10 MG TABLET PO (22:00)
[2024-11-28] VITALS (8 sets, daily range): BP systolic 105–128; BP diastolic 68–90; PULSE 60–87; RESP 15–18; TEMP 36.4–36.6; O2SAT 97–100; BMI 24.8
[2024-11-28] MEDS: Ipratropium/Albuterol Sulfate 3 ML AMPUL.NEB INHALATION ×4 (02:16→20:05)
[2024-11-28] MEDS: DiphenhydrAMINE 50 MG/ML Syringe 25 MG IV (02:22)
[2024-11-28] MEDS: Hydrocortisone Sod Succinate 100 MG/2 ML Vial 50 MG IV ×4 (06:10→23:06)
[2024-11-28] MEDS: Piperacil/Tazobactam 3.375 GM in 0.9% Normal Saline (50mL MB+) 50 ML IV (06:11)
[2024-11-28] MEDS: Gabapentin 300 MG Capsule 600 MG PO ×3 (06:15→21:25)
[2024-11-28 06:40] LABS: Absolute Lymphocyte Count 0.92 X10^3/uL (0.83-4.51); Absolute Neutrophil Count 11.6 X10^3/uL (2.0-7.7); Basophil# 0.02 X10^3/uL; Basophil% 0.2 % (0-1); Hematocrit 29.3 % (37-47); Hemoglobin 9.3 g/dL (12.0-15.0); Lymphocyte # 0.92 X10^3/ul (0.83-4.51); Lymphocyte % 6.9 % (19-41); Mean Corp Hgb Conc 31.7 g/dL (32-36); Mean Corpuscular Hgb 28.1 pg (27.0-32.0); Mean Corpuscular Volume 88.5 fL (81-99); Mean Platelet Vol. 11.1 fl (6.2-12.0); Monocyte# 0.65 X10^3/uL; Monocyte% 4.9 % (0-10); NRBC Flagged by Analyzer 0 % (0-5); Neutrophil # 11.57 X10^3/uL (2.7-7.7); Neutrophil % 87.2 % (47-70); Platelet Count 299 K/mm3 (150-450); RBC Distribution Width CV 16.2 % (11.6-14.6); RBC Distribution Width SD 53.2 fl (35.1-43.9); Red Blood Count 3.31 M/mm3 (4.2-5.4); White Blood Count 13.3 K/mm3 (4.4-11.0)
[2024-11-28 07:16] LABS: Anion Gap 8 (5-15); BUN 17 mg/dL (7-18); BUN/Creat Ratio 22.9 RATIO (10-20); Calcium,Total 8.4 mg/dL (8.5-10.1); Chloride 113 mmol/L (98-107); Creatinine, Serum 0.74 mg/dL (0.55-1.02); EST Glomerular Filtration Rate 91 mL/min (>60); Est Glom Filt Rate - Afr Amer 110 mL/min (>60); Estimated Creatinine Clearance 95.33 ml/min; Glucose 194 mg/dL (74-106); Magnesium 2.1 mg/dL (1.6-2.6); Phosphorus 2.5 mg/dL (2.5-4.9); Potassium 3.2 mmol/L (3.5-5.1); Sodium Level 142 mmol/L (136-145)
[2024-11-28] MEDS: guaiFENesin 1,200 MG Tablet 1200 MG PO ×2 (08:38→21:25)
[2024-11-28] MEDS: Pantoprazole Sodium 40 MG Tablet PO ×2 (08:38→21:25)
[2024-11-28] MEDS: Enoxaparin 40 MG/0.4 ML Syringe SC (08:38)
[2024-11-28] MEDS: oxyCODONE 5 MG Tablet PO ×3 (08:38→23:42)
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
--- NOTE | 2024-11-28 09:34 | PN.HOSP_ITS ---
Reason for Visit Reason for Visit: Diagnoses Elevated white blood cell count, unspecified (11/26/24) Hypotension, unspecified (11/26/24) Pneumonia, unspecified organism (11/26/24) Subjective Subjective Patient seen. He broke out into hives when new antibiotics were hung). Did reassure patient there were no new antibiotics started apart from what she was prescribed on admission. She did receive Benadryl. WBC count still remains elevated. Cultures still pending. Objective Data Objective Data Vital Signs: Vital Signs Temp Pulse Resp BP Pulse Ox O2 Del Method 97.5 F L 87 18 106/70 99 Room Air 11/28/24 08:23 11/28/24 08:23 11/28/24 08:23 11/28/24 08:23 11/28/24 08:23 11/28/24 08:43 Oxygen Delivery Method Room Air Weight: 71.9 kg Body Mass Index (BMI) 24.8 Intake & Output: Intake and Output for Last 24 Hours 11/26/24 11/27/24 11/28/24 23:59 23:59 23:59 Intake Total 3305 / 3305 2981.25 / 2981.25 415 / 415 Balance 3305 / 3305 2981.25 / 2981.25 415 / 415 Lab / Micro Data 11/28/24 06:18 11/28/24 06:18 Labs: Laboratory Results - last 24 hr 11/26/24 13:34: Diff Path Review Reviewed 11/28/24 06:18: WBC 13.3 H, RBC 3.31 L, Hgb 9.3 L, Hct 29.3 L, MCV 88.5, MCH 28.1, MCHC 31.7 L, RDW Std Deviation 53.2 H, RDW Coeff of Katelynn 16.2 H, Plt Count 299, MPV 11.1, Immature Gran % (Auto) 0.800, Neut % (Auto) 87.2 H, Lymph % (Auto) 6.9 L, [place] % (Auto) 4.9, Eos % (Auto) 0.0, Baso % (Auto) 0.2, Absolute Neuts (auto) 11.6 H, Absolute Lymphs (auto) 0.92, Nucleated RBC % 0, Sodium 142, Potassium 3.2 L, Chloride 113 H, Carbon Dioxide 21.0, Anion Gap 8, BUN 17, Creatinine 0.74, Estim Creat Clear Calc 95.33, Est GFR (MDRD) Af Amer 110, Est GFR (MDRD) Non-Af 91, BUN/Creatinine Ratio 22.9 H, Glucose 194 H, Calcium 8.4 L, Phosphorus 2.5, Magnesium 2.1 Micro: Microbiology 11/26/24 16:00 Urine, Clean Catch Urine Culture - Preliminary Culture exhibits no growth. 11/26/24 20:37 Mucosa - Nasopharyngeal Respiratory Panel (PCR) - Final 11/26/24 16:00 Urine, Random Legionella Antigen - Final 11/26/24 16:00 Urine, Random Streptococcus pneumoniae Antigen (M - Final 11/26/24 14:09 Mucosa - Nose SARS-CoV-2, Influenza & RSV (PCR) - Final Physical Exam Narrative GENERAL: cooperative HEENT: Atraumatic; normocephalic EYES; Anicteric, Normal Conjunctiva NECK; supple, normal thyroid, RESPIRATORY: Diminished to auscultation CARDIOVASCULAR: Regular S1 S2, GI: soft, normoactive bowel sounds, : No Renal angle tenderness; EXTREMITIES: No edema, no clubbing, MUSCULOSKELETAL: no muscle wasting NEURO: Awake; no lateralizing signs. SKIN: No Rash PSYCH; Flat affect Assessment & Plan Assessment/Plan (1) Leukocytosis: (2) Acute hypotension: (3) Pneumonia: PLAN: Plan Patient is a 44-year-old lady with history of chronic hypotension who presented to the emergency department after passing out. Patient was found to have elevated WBC count. Chest x-ray x-ray also did show Focal nodular infiltrate is seen in the left suprahilar region. Patient was found to have elevated lactic acid 1. Sepsis ? Secondary to pneumonia patient treated with IV fluid per protocol broad antibiotic therapy with serial monitoring of electrolyte. ? 11/28/2024; patient apparently had an allergic reaction to her antibiotic therapy. Discontinue both vancomycin as well as Zosyn started patient on p.o. doxycycline. 2. Chronic hypotension ? Resuscitated with IV fluid ? 11/28/2024; patient prescribed midodrine if blood pressure remains relatively stable 3. Diabetes mellitus type II -patient's oral hypoglycemics held. Placed on long acting insulin, Accu-Cheks a.c. and at bedtime and covered with sliding scale insulin 4. GERD ? Patient is on PPI 5. History of gastric bypass surgery ? In 2009. Patient BMI on admission was 24.8 6. 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 Patient nutrition is via oral route as well as feeding tube ? 11/28/2024; plan is to resume patient home tube feed regimen 7. Anemia ? Secondary to chronic disorder monitoring H&H and transfuse if patient becomes symptomatic or hemoglobin falls below 7 8. Hypokalemia -Corrected per protocol 9. DVT prophylaxis ? On enoxaparin Time spent in the patient's overall evaluation,decision-making process, review of diagnostic data, adjustment of management, discussion with other providers, nursing nursing and ancillary staff involved in patient's care documentation,52 Minutes Charges/Coding Visit Charges Inpatient E&M: 97907 [facility] L3
[2024-11-28] MEDS: Potassium Chloride Oral Tablet 20 MEQ 40 MEQ PO (10:12)
[2024-11-28] MEDS: Doxycycline 100 MG CAPSULE PO ×2 (10:12→21:25)
--- NOTE | 2024-11-28 10:31 | NS ---
Pt brought in home TF formula (Pepamen AF 1.2Cal). Nursing sent formula down to Pharmacy. RD talked to Pharmacist, Mao, regarding TF order - Pepamen AF 1.2Cal @ 140ml/hr from 10PM to 2AM. Reviewed and approved by Gloria Alex, BENNY, LD. Susie Nolen
[2024-11-28 10:32] LABS: Vancomycin, Trough Level 13.5 ug/mL (5.0-15.0)
[2024-11-28] MEDS: 0.9% Saline Lock 10 ML Syringe IV ×4 (12:15→23:06)
[2024-11-28] MEDS: Midodrine HCl 5 MG Tablet 10 MG PO ×2 (12:15→17:23)
[2024-11-28] MEDS: Ondansetron 4 MG/2 ML Vial IV (14:53)
[2024-11-28] MEDS: Potassium Chloride Oral Tablet 20 MEQ PO (17:22)
[2024-11-28] MEDS: DiphenhydrAMINE 25 MG Capsule 50 MG PO (17:40)
[2024-11-28] MEDS: MELATONIN 10 MG TABLET PO (21:25)
[2024-11-28] MEDS: Topiramate 100 MG Tablet PO (21:25)
[2024-11-28] MEDS: ENTERAL FORMULA GT (21:26)
--- NOTE | 2024-11-28 21:38 | NURSING ---
pt d/c at this time to [facility], pt stable. belongings with pt.
[2024-11-29] MEDS: Ipratropium/Albuterol Sulfate 3 ML AMPUL.NEB INHALATION ×2 (00:47→07:24)
[2024-11-29 00:50] VITALS: PULSE 79; RESP 20; O2SAT 96
[2024-11-29 02:30] VITALS: BP 125/86; PULSE 100; RESP 16; TEMP 36.6; O2SAT 97
[2024-11-29] MEDS: Gabapentin 300 MG Capsule 600 MG PO (05:29)
[2024-11-29] MEDS: Hydrocortisone Sod Succinate 100 MG/2 ML Vial 50 MG IV ×2 (05:29→11:26)
[2024-11-29] MEDS: 0.9% Saline Lock 10 ML Syringe IV (05:30)
[2024-11-29 06:00] VITALS: BMI 26.1
[2024-11-29 06:56] LABS: Absolute Lymphocyte Count 1.05 X10^3/uL (0.83-4.51); Absolute Neutrophil Count 10.7 X10^3/uL (2.0-7.7); Basophil# 0.02 X10^3/uL; Basophil% 0.2 % (0-1); Hematocrit 31.7 % (37-47); Hemoglobin 9.6 g/dL (12.0-15.0); Lymphocyte # 1.05 X10^3/ul (0.83-4.51); Lymphocyte % 8.5 % (19-41); Mean Corp Hgb Conc 30.3 g/dL (32-36); Mean Corpuscular Hgb 27.7 pg (27.0-32.0); Mean Corpuscular Volume 91.4 fL (81-99); Monocyte# 0.49 X10^3/uL; Monocyte% 3.9 % (0-10); NRBC Flagged by Analyzer 0 % (0-5); Neutrophil # 10.72 X10^3/uL (2.7-7.7); Neutrophil % 86.4 % (47-70); Platelet Count 312 K/mm3 (150-450); RBC Distribution Width CV 16.9 % (11.6-14.6); RBC Distribution Width SD 56.5 fl (35.1-43.9); Red Blood Count 3.47 M/mm3 (4.2-5.4); White Blood Count 12.4 K/mm3 (4.4-11.0)
[2024-11-29 07:17] LABS: Anion Gap 13 (5-15); BUN 21 mg/dL (7-18); BUN/Creat Ratio 19.8 RATIO (10-20); Calcium,Total 8.6 mg/dL (8.5-10.1); Chloride 112 mmol/L (98-107); Creatinine, Serum 1.06 mg/dL (0.55-1.02); EST Glomerular Filtration Rate 60 mL/min (>60); Est Glom Filt Rate - Afr Amer 73 mL/min (>60); Estimated Creatinine Clearance 72.55 ml/min; Glucose 249 mg/dL (74-106); Potassium 4.3 mmol/L (3.5-5.1); Sodium Level 141 mmol/L (136-145)
[2024-11-29 07:24] VITALS: PULSE 70; RESP 18; O2SAT 98
--- NOTE | 2024-11-29 07:39 | PCM.PN.HOSP ---
Reason for Visit Reason for Visit: Diagnoses Elevated white blood cell count, unspecified (11/26/24) Hypotension, unspecified (11/26/24) Pneumonia, unspecified organism (11/26/24) Objective Data Objective Data Vital Signs: Vital Signs Temp Pulse Resp BP Pulse Ox O2 Del Method 98 F 70 18 125/86 H 98 Room Air 11/29/24 02:30 11/29/24 07:24 11/29/24 07:24 11/29/24 02:30 11/29/24 07:24 11/29/24 07:24 Oxygen Delivery Method Room Air Weight: 75.5 kg Body Mass Index (BMI) 26.1 Intake & Output: Intake and Output for Last 24 Hours 11/27/24 11/28/24 11/29/24 23:59 23:59 23:59 Intake Total 2981.25 / 2981.25 458.54 / 458.54 Balance 2981.25 / 2981.25 458.54 / 458.54 Lab / Micro Data 11/29/24 06:14 11/29/24 06:14 Labs: Laboratory Results - last 24 hr 11/28/24 09:56: Vancomycin Trough 13.5 11/29/24 06:14: WBC 12.4 H, RBC 3.47 L, Hgb 9.6 L, Hct 31.7 L, MCV 91.4, MCH 27.7, MCHC 30.3 L, RDW Std Deviation 56.5 H, RDW Coeff of Katelynn 16.9 H, Plt Count 312, MPV 11.0, Immature Gran % (Auto) 1.000 H, Neut % (Auto) 86.4 H, Lymph % (Auto) 8.5 L, [place] % (Auto) 3.9, Eos % (Auto) 0.0, Baso % (Auto) 0.2, Absolute Neuts (auto) 10.7 H, Absolute Lymphs (auto) 1.05, Nucleated RBC % 0, Sodium 141, Potassium 4.3, Chloride 112 H, Carbon Dioxide 16.0 L, Anion Gap 13, BUN 21 H, Creatinine 1.06 H, Estim Creat Clear Calc 72.55, Est GFR (MDRD) Af Amer 73, Est GFR (MDRD) Non-Af 60, BUN/Creatinine Ratio 19.8, Glucose 249 H, Calcium 8.6 Micro: Microbiology 11/26/24 16:00 Urine, Clean Catch Urine Culture - Final Culture exhibits no growth. 11/26/24 15:50 Blood Culture (Wb) - Right Forearm Blood Culture - Preliminary No growth in 48 hours. 11/26/24 15:50 Blood Culture (Wb) - Left Forearm Blood Culture - Preliminary No growth in 48 hours. 11/26/24 20:37 Mucosa - Nasopharyngeal Respiratory Panel (PCR) - Final 11/26/24 16:00 Urine, Random Legionella Antigen - Final 11/26/24 16:00 Urine, Random Streptococcus pneumoniae Antigen (M - Final 11/26/24 14:09 Mucosa - Nose SARS-CoV-2, Influenza & RSV (PCR) - Final Physical Exam Narrative GENERAL: cooperative HEENT: Atraumatic; normocephalic EYES; Anicteric, Normal Conjunctiva NECK; supple, normal thyroid, RESPIRATORY: Diminished to auscultation CARDIOVASCULAR: Regular S1 S2, GI: soft, normoactive bowel sounds, : No Renal angle tenderness; EXTREMITIES: No edema, no clubbing, MUSCULOSKELETAL: no muscle wasting NEURO: Awake; no lateralizing signs. SKIN: No Rash PSYCH; Flat affect Assessment & Plan Assessment/Plan (1) Leukocytosis: (2) Acute hypotension: (3) Pneumonia: PLAN: Plan Patient is a 44-year-old lady with history of chronic hypotension who presented to the emergency department after passing out. Patient was found to have elevated WBC count. Chest x-ray x-ray also did show Focal nodular infiltrate is seen in the left suprahilar region. Patient was found to have elevated lactic acid 1. Sepsis ? Secondary to pneumonia patient treated with IV fluid per protocol broad antibiotic therapy with serial monitoring of electrolyte. ? 11/28/2024; patient apparently had an allergic reaction to her antibiotic therapy. Discontinue both vancomycin as well as Zosyn started patient on p.o. doxycycline. 2. Chronic hypotension ? Resuscitated with IV fluid ? 11/28/2024; patient prescribed midodrine if blood pressure remains relatively stable 3. Diabetes mellitus type II -patient's oral hypoglycemics held. Placed on long acting insulin, Accu-Cheks a.c. and at bedtime and covered with sliding scale insulin 4. GERD ? Patient is on PPI 5. History of gastric bypass surgery ? In 2009. Patient BMI on admission was 24.8 6. 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 Patient nutrition is via oral route as well as feeding tube ? 11/28/2024; plan is to resume patient home tube feed regimen 7. Anemia ? Secondary to chronic disorder monitoring H&H and transfuse if patient becomes symptomatic or hemoglobin falls below 7 8. Hypokalemia -Corrected per protocol 9. DVT prophylaxis ? On enoxaparin Time spent in the patient's overall evaluation,decision-making process, review of diagnostic data, adjustment of management, discussion with other providers, nursing nursing and ancillary staff involved in patient's care documentation,52 Minutes
--- NOTE | 2024-11-29 09:22 | PCM.DC.SUM ---
Providers Date of Admission: 11/26/24 Date of Discharge: 11/29/24 Primary Care Physician: Dr. Juan Manuel Mirza MD Consultations 11/26/24 19:54 Consult: Milling General Superintendent / Pulmonary Medicine Routine Consulting Provider: Intensivists/Pulmonary Med Reason for Consult: PNA, hypotension, starting levo EMERGENT Consult: No MD Notified: Yes Date Notified: 11/26/24 Time Notified: 19:53 Method of Notification: Text Reason For Visit: PNA, HYPOTENSION Diagnosis Discharge Diagnosis (1) Leukocytosis: Status: Acute Code(s): D72.829 - Elevated white blood cell count, unspecified (2) Acute hypotension: Status: Acute Code(s): I95.9 - Hypotension, unspecified (3) Pneumonia: Status: Acute Code(s): J18.9 - Pneumonia, unspecified organism Plan Patient is a 44-year-old lady with history of chronic hypotension who presented to the emergency department after passing out. Patient was found to have elevated WBC count. Chest x-ray x-ray also did show Focal nodular infiltrate is seen in the left suprahilar region. Patient was found to have elevated lactic acid 1. Sepsis ? Secondary to pneumonia patient treated with IV fluid per protocol broad antibiotic therapy with serial monitoring of electrolyte. ? 11/28/2024; patient apparently had an allergic reaction to her antibiotic therapy. Discontinue both vancomycin as well as Zosyn started patient on p.o. doxycycline. 2. Chronic hypotension ? Resuscitated with IV fluid ? 11/28/2024; patient prescribed midodrine if blood pressure remains relatively stable 3. Diabetes mellitus type II -patient's oral hypoglycemics held. Placed on long acting insulin, Accu-Cheks a.c. and at bedtime and covered with sliding scale insulin 4. GERD ? Patient is on PPI 5. History of gastric bypass surgery ? In 2009. Patient BMI on admission was 24.8 6. 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 Patient nutrition is via oral route as well as feeding tube ? 11/28/2024; plan is to resume patient home tube feed regimen 7. Anemia ? Secondary to chronic disorder monitoring H&H and transfuse if patient becomes symptomatic or hemoglobin falls below 7 8. Hypokalemia -Corrected per protocol 9. DVT prophylaxis ? On enoxaparin Time spent in the patient's overall evaluation,decision-making process, review of diagnostic data, adjustment of management, discussion with other providers, nursing nursing and ancillary staff involved in patient's care documentation, 35 Minutes Medications at Discharge Home Medications gabapentin 300 mg capsule 900 mg PO TID 05/18/18 scopolamine base 1 mg over 3 days transdermal patch 1 patch transdermal Q3D PRN nausea and vomiting #24 ea 05/02/22 pantoprazole 40 mg tablet,delayed release See Rx Instructions .Route .COMPLEX #90 tabs 07/18/22 albuterol sulfate 90 mcg/actuation aerosol inhaler (Ventolin HFA) 2 puff inhalation Q4H PRN PRN Wheezing ##1 07/29/23 benzonatate 200 mg capsule 200 mg PO BID PRN cough #14 caps 07/29/23 empagliflozin 25 mg tablet (Jardiance) 25 mg PO DAILY 07/08/24 melatonin 10 mg capsule 20 mg PO QHS 07/08/24 metformin 500 mg tablet 500 mg PO BID 07/08/24 metoclopramide HCl 10 mg tablet (Reglan) 10 mg PO Q8H PRN PRN nause 07/08/24 oxycodone 10 mg tablet 10 mg PO 4X/DAY PRN PRN pain 07/08/24 tizanidine 4 mg tablet 4 mg PO Q12H PRN muscle spasticity 07/08/24 topiramate 100 mg tablet 100 mg PO DAILY 07/08/24 doxycycline monohydrate 100 mg capsule 100 mg PO BID #14 caps 11/29/24 guaifenesin 600 mg tablet, extended release 12 hr (Mucinex) 1,200 mg (2 x 600 mg) PO BID #20 tabs 11/29/24 midodrine 5 mg tablet 5 mg PO BID #60 tabs 11/29/24 Physical Exam Narrative GENERAL: cooperative HEENT: Atraumatic; normocephalic EYES; Anicteric, Normal Conjunctiva NECK; supple, normal thyroid, RESPIRATORY: Diminished to auscultation CARDIOVASCULAR: Regular S1 S2, GI: soft, normoactive bowel sounds, : No Renal angle tenderness; EXTREMITIES: No edema, no clubbing, MUSCULOSKELETAL: no muscle wasting NEURO: Awake; no lateralizing signs. SKIN: No Rash PSYCH; Flat affect Weight / BMI Weight Weight: 75.5 kg Body Mass Index (BMI) 26.1 ABG / Lab / Microbiology Data 11/29/24 06:14 11/29/24 06:14 Laboratory: Laboratory Results - last 24 hr 11/28/24 09:56: Vancomycin Trough 13.5 11/29/24 06:14: WBC 12.4 H, RBC 3.47 L, Hgb 9.6 L, Hct 31.7 L, MCV 91.4, MCH 27.7, MCHC 30.3 L, RDW Std Deviation 56.5 H, RDW Coeff of Katelynn 16.9 H, Plt Count 312, MPV 11.0, Immature Gran % (Auto) 1.000 H, Neut % (Auto) 86.4 H, Lymph % (Auto) 8.5 L, [place] % (Auto) 3.9, Eos % (Auto) 0.0, Baso % (Auto) 0.2, Absolute Neuts (auto) 10.7 H, Absolute Lymphs (auto) 1.05, Nucleated RBC % 0, Sodium 141, Potassium 4.3, Chloride 112 H, Carbon Dioxide 16.0 L, Anion Gap 13, BUN 21 H, Creatinine 1.06 H, Estim Creat Clear Calc 72.55, Est GFR (MDRD) Af Amer 73, Est GFR (MDRD) Non-Af 60, BUN/Creatinine Ratio 19.8, Glucose 249 H, Calcium 8.6 Microbiology: Microbiology 11/26/24 16:00 Urine, Clean Catch Urine Culture - Final Culture exhibits no growth. 11/26/24 15:50 Blood Culture (Wb) - Right Forearm Blood Culture - Preliminary No growth in 48 hours. 11/26/24 15:50 Blood Culture (Wb) - Left Forearm Blood Culture - Preliminary No growth in 48 hours. 11/26/24 20:37 Mucosa - Nasopharyngeal Respiratory Panel (PCR) - Final 11/26/24 16:00 Urine, Random Legionella Antigen - Final 11/26/24 16:00 Urine, Random Streptococcus pneumoniae Antigen (M - Final 11/26/24 14:09 Mucosa - Nose SARS-CoV-2, Influenza & RSV (PCR) - Final D/C Instructions Discharge Diet: No restrictions Discharge Activity: Return to Normal Activity Call your doctor if you observe: Fever of 101 or Higher, Shortness of breath, Fainting spells and Chest pain DC O2, CPAP, BIPAP Needs Home O2 Discharge instructions: No Meaningful Use Info Meaningful Use Meaningful Use Diagnoses (Choose all that apply): None applicable Ischemic Stroke Statin Dosing Therapy Reference: STATIN DOSE THERAPY REFERENCE: * Patients > 75 years receive moderate or high dose statin therapy. * Patients 75 years or YOUNGER should receive HIGH intensity statin dose unless contraindicated. You will be required to document reason for non-treatment if statin daily dose does not meet guidelines. HIGH DOSE STATIN THERAPY DAILY Atorvastatin > than or = to 40 mg Rosuvastatin > than or = to 20 mg Amlodipine + Atorvastatin > than or = to 2.5/40 mg Ezetimibe + Simvastatin 10/80 mg Simvastatin 80mg Discharge Plan Admission Admit Date/Time: 11/26/24 16:06 Attending Provider: Frank Saldana Primary Care Provider: Juan Manuel Mirza Consulting Providers: Amy Graham Discharge Orders/Prescriptions Prescriptions: New midodrine 5 mg Tablet 5 mg PO BID Qty: 60 0RF doxycycline monohydrate 100 mg Capsule 100 mg PO BID Qty: 14 0RF guaifenesin [Mucinex] 600 mg tablet extended release 12hr 1,200 mg PO BID Qty: 20 0RF Continued scopolamine base 1 mg over 3 days patch 3 day 1 patch transdermal Q3D PRN (Reason: nausea and vomiting) Qty: 24 3RF gabapentin 300 MG capsule 900 mg PO TID Patient Comments: take 3 capsules by mouth at bedtime benzonatate 200 mg capsule 200 mg PO BID PRN (Reason: cough) Qty: 14 0RF albuterol sulfate [Ventolin HFA] 90 mcg/actuation HFA aerosol inhaler 2 puff inhalation Q4H PRN PRN (Reason: Wheezing) Qty: 1 0RF metformin 500 mg tablet 500 mg PO BID Jardiance 25 mg tablet 25 mg PO DAILY tizanidine 4 mg tablet 4 mg PO Q12H PRN (Reason: muscle spasticity) metoclopramide HCl [Reglan] 10 mg tablet 10 mg PO Q8H PRN PRN (Reason: nause) topiramate 100 mg tablet 100 mg PO DAILY oxycodone 10 mg tablet 10 mg PO 4X/DAY PRN PRN (Reason: pain) melatonin 10 mg capsule 20 mg PO QHS pantoprazole 40 mg tablet,delayed release (DR/EC) See Rx Instructions .ROUTE .COMPLEX Qty: 90 3RF Dose Instruction: take 1 tablet by mouth once daily Rx Instructions: take 1 tablet by mouth TWICE daily Referrals / Follow Up: Juan Manuel Mirza MD [Primary Care Provider] - Disposition Disposition (needs filled in before D/C Order can be placed): Home, Self Care Charges/Coding Visit Charges Inpatient E&M: 14833 Disch Hosp >30min
[2024-11-29] MEDS: Potassium Chloride Oral Tablet 20 MEQ PO (09:28)
[2024-11-29] MEDS: Pantoprazole Sodium 40 MG Tablet PO (09:29)
[2024-11-29] MEDS: guaiFENesin 1,200 MG Tablet 1200 MG PO (09:29)
[2024-11-29] MEDS: oxyCODONE 5 MG Tablet PO (09:29)
[2024-11-29] MEDS: Doxycycline 100 MG CAPSULE PO (09:29)
[2024-11-29] MEDS: Enoxaparin 40 MG/0.4 ML Syringe SC (09:32)
[2024-11-29] MEDS: Midodrine HCl 5 MG Tablet 10 MG PO ×2 (09:32→11:26)
[2024-11-29 09:48] VITALS: BP 120/79; PULSE 98; RESP 16; TEMP 36.6; O2SAT 98
[2024-11-29 09:49] VITALS: RESP 18
[2024-11-29 11:55] VITALS: BP 145/70; PULSE 80; RESP 18; TEMP 37.2; O2SAT 100
== END 2024-11-29 11:47 | disposition home or self-care (01) | DRG 871 ==
LOC: ED 15:53 → ICU 18:38 → MS3 11-27 17:51
PROVIDERS: Admitting Provider Internal Medicine; Emergency Provider Emergency Medicine; PCP Family Medicine; Referring Provider Emergency Medicine; Visit Provider Internal Medicine
DX: A41.9 Sepsis, unspecified organism (principal); J18.9 Pneumonia, unspecified organism; E87.20 Acidosis, unspecified; D63.8 Anemia in other chronic diseases classified elsewhere; E11.9 Type 2 diabetes mellitus without complications; D72.829 Elevated white blood cell count, unspecified; I10 Essential (primary) hypertension; Z93.1 Gastrostomy status; E87.6 Hypokalemia; I95.9 Hypotension, unspecified; K21.9 Gastro-esophageal reflux disease without esophagitis; Z79.84 Long term (current) use of oral hypoglycemic drugs; Z90.710 Acquired absence of both cervix and uterus; Z79.899 Other long term (current) drug therapy; Z90.49 Acquired absence of other specified parts of digestive tract; Z98.51 Tubal ligation status; T36.8X5A Adverse effect of other systemic antibiotics, initial encounter; T36.0X5A Adverse effect of penicillins, initial encounter
CPT/HCPCS: 36415; 71045; 80048; 80053; 80202; 81001; 83605; 83735; 84100; 84484; 84703; 85025; 87040; 87086; 87449; 87631; 87633; 93005; 94640; 97802; 99285; A4216; J0696; J2405

== ENCOUNTER 2025-06-10 07:30 | Emergency (ER) | payer OTHER, SELFPAY ==
[2025-06-10] VITALS (8 sets, daily range): BP systolic 73–113; BP diastolic 58–83; PULSE 65–92; RESP 12–23; TEMP 36–36.4; O2SAT 95–100; BMI 27.0
--- NOTE | 2025-06-10 07:42 | EKG12_ITS ---
Test Reason : SYNCOPE Blood Pressure : */* mmHG Vent. Rate : 74 BPM Atrial Rate : 74 BPM P-R Int : 202 ms QRS Dur : 84 ms QT Int : 414 ms P-R-T Axes : 39 59 54 degrees QTcB Int : 459 ms Normal sinus rhythm Normal ECG When compared with ECG of 26-Nov-2024 13:32, No significant change was found Confirmed by JUDI WARREN ([id number]), desk editor NEELIMA MONTOYA ([id number]) on 06/16/2025 1:16:39 PM Referred By: Confirmed By: JUDI WARREN
--- NOTE | 2025-06-10 08:09 | CT_ITS ---
PROCEDURE: BRAIN/HEAD WITHOUT CONTRAST 06/10/2025 REASON FOR EXAM: SYNCOPE Hypotension. History of migraines. TECHNIQUE: BRAIN/HEAD WITHOUT CONTRAST Coronal and Sagittal reconstruction series were provided. One or more dose reduction techniques were used (e.g., Automated exposure control, adjustment of the mA and/or kV according to patient size, use of iterative reconstruction technique. RADIATION DOSE SUMMARY: CTDlvol: 44.99 mGy DLP: 829.85 mGycm COMPARISON: None FINDINGS: Brain: Within normal limits for age CSF Spaces: Normal Sinuses/Mastoids: Clear at visualized levels Bones: CT/Brain/Head without Contrast IMPRESSION: NORMAL NONCONTRAST HEAD CT. Reading Location: [facility]
--- NOTE | 2025-06-10 08:14 | EX.ED.DYSGE1 ---
HPI History of Present Illness Chief Complaint: Syncope Narrative Narrative: Patient is a 44-year-old female presenting to the emergency department for 2 syncopal events this morning. Patient has a past medical history of gastric bypass, dehydration, DKA, nausea/vomiting, abdominal pain and syncopal episodes from hypotension. Patient states that she has had the syncopal episodes worked up, including a Holter monitor where she seen a cpa tax. She states she wanted to be evaluated after these 2 syncopal events to rule out any changes to her abnormal liver function or if she is in DKA. States that her sugars have been in the 200s at home. She states this morning she was helping get her kids ready for school when she stood up from sitting and got lightheaded and then syncopized. She states this happened twice and it was the same series of events. States that her 17-year-old son witnessed it and said she did not hit her head. He helped her up both times after. States she was unconscious for just a few seconds. She denies any headache, chest pain, shortness of breath. Denies any recent travel, hospitalizations or surgeries. States she always has some abdominal pain around her feeding tube site but this is no different than her baseline. Endorses some intermittent nausea which is also chronic for her. No recent vomiting or diarrhea. PFSH PFSH Medical History Asthma DVT (deep venous thrombosis) Paroxysmal hemicrania Ulcer History of stress test Hearing loss, left Diabetes GI bleed Migraines Kidney stones Back pain Syncope History of irregular heartbeat Nausea & vomiting Anastomotic ulcer Wears glasses Anemia Migraine headache History of ulceration Gastric reflux History of echocardiogram Hypertension Cardiology follow-up encounter Abdominal pain Non-smoker Home Medications ?Medication ?Instructions ?Recorded ?Last Taken ?Type gabapentin 300 mg capsule 900 mg PO TID 05/18/18 11/26/24 History scopolamine base 1 mg over 3 days 1 patch transdermal Q3D PRN nausea 05/02/22 Unknown Rx transdermal patch and vomiting #24 ea pantoprazole 40 mg tablet,delayed See Rx Instructions .Route 07/18/22 11/26/24 Rx release .COMPLEX #90 tabs albuterol sulfate 90 mcg/actuation 2 puff inhalation Q4H PRN PRN 07/29/23 Unknown Rx aerosol inhaler (Ventolin HFA) Wheezing ##1 benzonatate 200 mg capsule 200 mg PO BID PRN cough #14 caps 07/29/23 Unknown Rx empagliflozin 25 mg tablet 25 mg PO DAILY 07/08/24 11/26/24 History (Jardiance) melatonin 10 mg capsule 20 mg PO QHS 07/08/24 11/25/24 History metformin 500 mg tablet 500 mg PO BID 07/08/24 11/26/24 History metoclopramide HCl 10 mg tablet 10 mg PO Q8H PRN PRN nause 07/08/24 11/25/24 History (Reglan) oxycodone 10 mg tablet 10 mg PO 4X/DAY PRN PRN pain 07/08/24 11/25/24 History tizanidine 4 mg tablet 4 mg PO Q12H PRN muscle spasticity 07/08/24 11/25/24 History topiramate 100 mg tablet 100 mg PO DAILY 07/08/24 11/25/24 History doxycycline monohydrate 100 mg 100 mg PO BID #14 caps 11/29/24 Unknown Rx capsule guaifenesin 600 mg tablet, 1,200 mg (2 x 600 mg) PO BID #20 11/29/24 Unknown Rx extended release 12 hr (Mucinex) tabs midodrine 5 mg tablet 5 mg PO BID #60 tabs 11/29/24 Unknown Rx Allergy/AdvReac Type Severity Reaction Status Date / Time codeine Allergy Other Verified 06/10/25 07:33 morphine Allergy Hives Verified 06/10/25 07:33 Family History Mother Diabetes Pulmonary embolism Father Diabetes Surgical History History of cholecystectomy S/P hysterectomy History of hysterectomy Hx of colonoscopy Hx of tubal ligation History of surgery Hx of section Gastric bypass status for obesity Social History household members: spouse Smoking Status: Never smoker alcohol intake: never substance use type: does not use ROS ROS ED ROS Narrative see HPI EXAM Physical Exam Narrative Exam Narrative: Vital signs: Reviewed General: Alert and orientedx3. No acute distress HEENT: Head is normocephalic and atraumatic, sinuses nontender, pupils equal round and reactive. Nares are patent. Oropharynx and throat exams normal. Neck: Supple without lymphadenopathy nontender. No midline cervical spinal tenderness to palpation. No step-offs or deformities. Cardiovascular: Regular rate and rhythm, no murmurs. No rubs or gallops. Normal S1 and S2 Respiratory: Clear to auscultation bilaterally. No wheezes, rales, rhonchi Abdominal: Soft and nontender. Normal bowel sounds. No guarding or rebound. Nonsurgical abdomen. PEG tube in left upper middle quadrant, no surrounding erythema or warmth. Extremities: No tenderness. No bruising. Normal range of motion. Normal sensation. No midline thoracic or lumbar spinal tenderness palpation. No step-offs or deformities. Hips are stable and nontender to palpation. Extremities are atraumatic and nontender to palpation with normal active range of motion. Skin: No rash or redness. Neurological: Cranial nerves II through XII are grossly intact. Normal strength and sensation. Normal cerebellar function The rest of the physical exam is unremarkable Const Vital Signs: 06/10/25 07:31 06/10/25 07:33 06/10/25 08:21 Temperature 96.8 F L Temperature Source Temporal Pulse Rate 79 Pulse Rate [Lying] 74 Pulse Rate [Sitting (for 1 minute prior to obtaining)] 83 Pulse Rate [Standing (for 1 minute prior to obtaining)] 92 Respiratory Rate 19 H Respiratory Effort Normal Non-Labored Respiratory Pattern Normal Blood Pressure 90/60 Blood Pressure [Lying] 96/75 Blood Pressure [Sitting (for 1 minute prior to obtaining)] 90/66 Blood Pressure [Standing (for 1 minute prior to obtaining)] 73/58 L Blood Pressure Mean 70 Blood Pressure Mean [Lying] 82 Blood Pressure Mean [Sitting (for 1 minute prior to obtaining)] 74 Blood Pressure Mean [Standing (for 1 minute prior to obtaining)] 63 Pulse Ox 98 Oxygen Delivery Method Room Air 06/10/25 08:31 06/10/25 09:00 06/10/25 10:00 Temperature Temperature Source Pulse Rate 76 76 65 Pulse Rate [Lying] Pulse Rate [Sitting (for 1 minute prior to obtaining)] Pulse Rate [Standing (for 1 minute prior to obtaining)] Respiratory Rate 14 21 H 23 H Respiratory Effort Respiratory Pattern Blood Pressure 94/73 101/79 113/83 H Blood Pressure [Lying] Blood Pressure [Sitting (for 1 minute prior to obtaining)] Blood Pressure [Standing (for 1 minute prior to obtaining)] Blood Pressure Mean 80 86 93 Blood Pressure Mean [Lying] Blood Pressure Mean [Sitting (for 1 minute prior to obtaining)] Blood Pressure Mean [Standing (for 1 minute prior to obtaining)] Pulse Ox 97 96 100 Oxygen Delivery Method Room Air Room Air Room Air 06/10/25 11:00 06/10/25 12:08 06/10/25 12:45 Temperature 97.6 F L Temperature Source Pulse Rate 74 66 70 Pulse Rate [Lying] Pulse Rate [Sitting (for 1 minute prior to obtaining)] Pulse Rate [Standing (for 1 minute prior to obtaining)] Respiratory Rate 12 14 16 Respiratory Effort Respiratory Pattern Blood Pressure 102/74 98/72 104/78 Blood Pressure [Lying] Blood Pressure [Sitting (for 1 minute prior to obtaining)] Blood Pressure [Standing (for 1 minute prior to obtaining)] Blood Pressure Mean 83 80 86 Blood Pressure Mean [Lying] Blood Pressure Mean [Sitting (for 1 minute prior to obtaining)] Blood Pressure Mean [Standing (for 1 minute prior to obtaining)] Pulse Ox 95 99 100 Oxygen Delivery Method Room Air Room Air MDM MDM MDM Narrative Medical decision making narrative: Patient is a 44-year-old female presenting to the emergency department for 2 syncopal events. Patient was seen and examined. Vitals are stable. Patient resting in bed comfortably in no acute distress. Differential includes but is not limited to: Orthostatic hypotension, vasovagal episode, cardiac arrhythmia, anemia, electrolyte derangement, dehydration, less likely intracranial bleed, PE, ACS EKG shows normal sinus rhythm with no ischemic changes. No arrhythmia. No ST elevation or depression. Fluid bolus started. Orthostatic vitals ordered. Labs and CT of the brain ordered. CBC with no leukocytosis and chronic anemia of 10.8. CMP with mild elevation in BUN of 29. Hyperglycemia of 314, normal bicarb and anion gap. Do not suspect DKA. Transaminitis which has been noted previously and she states that she is followed up with GI and had extensive workup for. Do not suspect this is the cause of her syncopal episode. I did recommend following up with GI again after evaluation here. Urine negative. Urinalysis with no evidence of infection. CT brain shows no acute intracranial abnormalities. Chest x-ray reviewed by myself and shows no opacities, pneumothorax or rib fractures noted. Radiology reviewed with no acute abnormalities. Orthostatics positive. Given a total of 2 L NS bolus. She was able to ambulate multiple times without difficulty. Her description of the syncopal events given she went from sitting to standing and has a history of orthostatic hypotension as well as the positive orthostatic vitals here are consistent with that. Updated the patient and her on the findings. Patient discharged from the Emergency Department. I do not feel that the patient's evaluation reveals any acute reason for admission at this time. I instructed them to either follow-up with their primary care physician or promptly return to the Emergency Department for reevaluation should symptoms worsen or new symptoms develop. I explained what symptoms would indicate the need to return to the emergency department. Shared decision making was used. The patient voiced understanding of the treatment plan and is agreeable with it. Clinical question: Orthostatic syncope chronic anemia Transaminitis History & Record Review Discussion w/independent historian: Patient and Significant other Lab Data Attestation: I reviewed the patient's lab results. Labs: Laboratory Results - last 24 hr 06/10/25 06/10/25 07:46 12:17 WBC 7.3 RBC 3.58 L Hgb 10.8 L Hct 34.3 L MCV 95.8 MCH 30.2 MCHC 31.5 L RDW Std Deviation 50.7 H RDW Coeff of Katelynn 14.5 Plt Count 353 MPV 11.5 Immature Gran % (Auto) 0.300 Neut % (Auto) 38.2 L Lymph % (Auto) 44.3 H G[place] % (Auto) 10.5 H Eos % (Auto) 5.5 H Baso % (Auto) 1.2 H Absolute Neuts (auto) 2.8 Absolute Lymphs (auto) 3.21 Nucleated RBC % 0 Sodium 137 Potassium 4.6 Chloride 101 Carbon Dioxide 22.0 Anion Gap 14 BUN 29 H Creatinine 0.86 Estim Creat Clear Calc 90.87 Est GFR (MDRD) Non-Af 86 BUN/Creatinine Ratio 34.2 H Glucose 314 H Calcium 9.3 Total Bilirubin 0.29 AST 317 H ALT 398 H Alkaline Phosphatase 382 H Troponin T High Sens 8 Total Protein 6.4 Albumin 3.8 Globulin 2.7 Albumin/Globulin Ratio 1.4 Urine Color Yellow Urine Clarity Clear Urine pH 5.0 Ur Specific [place] 1.020 Urine Protein 30 H Urine Glucose (UA) Normal Urine Ketones Negative Urine Occult Blood Negative Urine Nitrite Negative Urine Bilirubin 1 H Urine Urobilinogen 1 H Ur Leukocyte Esterase 100 H Urine RBC 0 SEEN Urine WBC 0-5 SEEN Ur Squamous Epith Cells 0-5 SEEN Urine Bacteria 0 SEEN Urine Mucus 0 SEEN Urine Test Negative Radiography Diagnostic Testing: Clinical Impression(s) from Imaging Studies Brain CT 06/10/25 08:09 IMPRESSION: NORMAL NONCONTRAST HEAD CT. Reading Location: [facility] Chest X-Ray 06/10/25 08:50 IMPRESSION: NO ACUTE FINDINGS. Reading Location: [facility] Discharge Plan Triage Chief Complaint: Syncope ED Provider: Helen Bailey Dx/Rx/DC Orders Clinical Impression: Orthostatic syncope, Transaminitis, Chronic anemia Instructions: Anemia, ED Hypotension, Orthostatic Prescriptions: No Action scopolamine base 1 mg over 3 days patch 3 day 1 patch transdermal Q3D PRN (Reason: nausea and vomiting) Qty: 24 3RF gabapentin 300 MG capsule 900 mg PO TID Patient Comments: take 3 capsules by mouth at bedtime benzonatate 200 mg capsule 200 mg PO BID PRN (Reason: cough) Qty: 14 0RF albuterol sulfate [Ventolin HFA] 90 mcg/actuation HFA aerosol inhaler 2 puff inhalation Q4H PRN PRN (Reason: Wheezing) Qty: 1 0RF metformin 500 mg tablet 500 mg PO BID Jardiance 25 mg tablet 25 mg PO DAILY tizanidine 4 mg tablet 4 mg PO Q12H PRN (Reason: muscle spasticity) metoclopramide HCl [Reglan] 10 mg tablet 10 mg PO Q8H PRN PRN (Reason: nause) topiramate 100 mg tablet 100 mg PO DAILY oxycodone 10 mg tablet 10 mg PO 4X/DAY PRN PRN (Reason: pain) melatonin 10 mg capsule 20 mg PO QHS midodrine 5 mg Tablet 5 mg PO BID Qty: 60 0RF doxycycline monohydrate 100 mg Capsule 100 mg PO BID Qty: 14 0RF guaifenesin [Mucinex] 600 mg tablet extended release 12hr 1,200 mg PO BID Qty: 20 0RF pantoprazole 40 mg tablet,delayed release (DR/EC) See Rx Instructions .ROUTE .COMPLEX Qty: 90 3RF Dose Instruction: take 1 tablet by mouth once daily Rx Instructions: take 1 tablet by mouth TWICE daily Primary Care Provider: Juan Manuel Mirza Referrals: Bryson Lombardo DO [Med Staff - Active Staff] - 3-5 Days Juan Manuel Mirza MD [Primary Care Provider] - 2 Days Activity Restrictions/Additional Instructions: Please follow-up with your GI doctor for your elevated liver enzymes. Your evaluation in the Emergency Department did not reveal any acute reason for admission. However, I want to emphasize that you may be early in the course of a disease process or illness even if it is not present. For this reason you should follow-up within 24 hours for reevaluation with either your primary care physician or if necessary back here in the Emergency Department. You should return to the Emergency Department immediately if your symptoms worsen or new symptoms develop. Print Language: Georgian Disposition Disposition: Home, Self Care Discharge Date/Time: 06/10/25 12:50
[2025-06-10] MEDS: 0.9% Normal Saline (1000mL) 1,000 ML 1000 ML IV ×2 (08:23→11:03)
[2025-06-10 08:33] LABS: Hematocrit 34.3 % (37-47); Hemoglobin 10.8 g/dL (12.0-15.0); Immature Granulocytes Count 0.020 X10^3/uL (0.0-0.0); Mean Corp Hgb Conc 31.5 g/dL (32-36); Mean Corpuscular Volume 95.8 fL (81-99); Mean Platelet Vol. 11.5 fl (6.2-12.0); NRBC Flagged by Analyzer 0 % (0-5); Platelet Count 353 K/mm3 (150-450); RBC Distribution Width CV 14.5 % (11.6-14.6); RBC Distribution Width SD 50.7 fl (35.1-43.9); Red Blood Count 3.58 M/mm3 (4.2-5.4); White Blood Count 7.3 K/mm3 (4.4-11.0)
--- NOTE | 2025-06-10 08:50 | RAD_ITS ---
PROCEDURE: CHEST PA AND LATERAL 06/10/2025 REASON FOR EXAM: SYNCOPE TECHNIQUE: CHEST PA AND LATERAL COMPARISON: Prior study dated November 26, 2024. FINDINGS: Hardware: EKG electrodes are seen. Heart: The heart size is normal. Mediastinum: The mediastinal contour is unremarkable. Lungs: The lungs are clear. Bones: The bones are unremarkable. RAD/Chest PA and Lateral IMPRESSION: NO ACUTE FINDINGS. Reading Location: [id number]
[2025-06-10 08:52] LABS: Troponin T High Sensitivity 8 ng/L (<=14)
[2025-06-10 08:53] LABS: AST(SGOT) 317 U/L (<=31); Alanine Aminotransfer ALT/SGPT 398 U/L (<=34); Albumin, Serum 3.8 g/dL (3.5-5.0); Alkaline Phosphatase 382 U/L (35-104); Anion Gap 14 (5-15); BUN 29 mg/dL (4-19); BUN/Creat Ratio 34.2 RATIO (10-20); Calcium,Total 9.3 mg/dL (7.6-11.0); Carbon Dioxide 22.0 mmol/L (21.0-32.0); Chloride 101 mmol/L (98-108); Estimated Creatinine Clearance 90.87 ml/min (50-250); Globulin 2.7 g/dL (2.2-4.2); Glucose 314 mg/dL (70-99); Potassium 4.6 mmol/L (3.3-5.1)
[2025-06-10 12:23] LABS: Mucous, Urine 0 SEEN /hpf (<or=2+); Red Blood Cells-Urine 0 SEEN /hpf (0-5)
[2025-06-10 12:31] LABS: Internal QC Validated? YES +Cl - CLEAR BKGD; Pregnancy, Urine Negative Negative; Record Kit Lot#,Urine Preg 962302
[2025-06-10 12:35] LABS: Color, Urine Yellow (Yellow); Glucose, Dipstick Normal (Normal); Ketone-Dipstick Negative (Negative); Leukocyte Esterase-Dipstick 100 /ul (Negative); Nitrite-Dipstick Negative (Negative); Occult Blood-Urine Negative /ul (Negative); Protein-Dipstick 30 mg/dl (Negative); Specific Gravity, Urine 1.020 (1.002-1.030); Urine Bilirubin Dipstick 1 mg/dL (Negative)
[2025-06-10 12:36] LABS: Squamous Epithelial Cells - UA 0-5 SEEN /hpf (5-10)
== END 2025-06-10 12:50 | disposition home or self-care (01) ==
PROVIDERS: Emergency Provider Student in an Organized Health Care Education/Training Program; PCP Family Medicine; Visit Provider Student in an Organized Health Care Education/Training Program
DX: R55 Syncope and collapse (principal); E11.65 Type 2 diabetes mellitus with hyperglycemia; I10 Essential (primary) hypertension; D64.9 Anemia, unspecified; R74.01 Elevation of levels of liver transaminase levels; Z98.84 Bariatric surgery status; J45.909 Unspecified asthma, uncomplicated
CPT/HCPCS: 70450; 71046; 80053; 81001; 81025; 84484; 85025; 96360; 96361; 99285; A4216

== ENCOUNTER 2025-08-17 23:01 | Emergency (ER) | payer OTHER, SELFPAY ==
[2025-08-17 23:02] VITALS: BP 92/73; PULSE 88; RESP 19; TEMP 36.6; O2SAT 100
[2025-08-17 23:04] VITALS: BMI 25.7
[2025-08-17] MEDS: 0.9% Normal Saline (1000mL) 1,000 ML 999 ML IV (23:26)
[2025-08-17 23:29] LABS: Hematocrit 34.8 % (37-47); Hemoglobin 11.3 g/dL (12.0-15.0); Immature Granulocytes Count 0.060 X10^3/uL (0.0-0.0); Mean Corp Hgb Conc 32.5 g/dL (32-36); Mean Corpuscular Volume 94.3 fL (81-99); Mean Platelet Vol. 10.3 fl (6.2-12.0); NRBC Flagged by Analyzer 0 % (0-5); Platelet Count 449 K/mm3 (150-450); RBC Distribution Width CV 11.9 % (11.6-14.6); RBC Distribution Width SD 41.2 fl (35.1-43.9); Red Blood Count 3.69 M/mm3 (4.2-5.4); White Blood Count 8.4 K/mm3 (4.4-11.0)
[2025-08-17 23:51] LABS: Anion Gap 16 (5-15); BUN 34 mg/dL (4-19); BUN/Creat Ratio 35.4 RATIO (10-20); Calcium,Total 9.6 mg/dL (7.6-11.0); Carbon Dioxide 22.6 mmol/L (21.0-32.0); Chloride 98 mmol/L (98-108); Estimated Creatinine Clearance 77.95 ml/min (50-250); Glucose 181 mg/dL (70-99); Potassium 5.5 mmol/L (3.3-5.1)
[2025-08-18 00:02] VITALS: BP 124/91; PULSE 79; RESP 18; O2SAT 97
--- NOTE | 2025-08-18 00:54 | EX.ED.DYSGE1 ---
HPI History of Present Illness Chief Complaint: Hypotension Informant: patient and spouse/S.O. Narrative Narrative: Patient is a 45-year-old female with history of yio-[id number]-lvosllalu diabetes past history of gastric bypass and hypotension on midodrine. She states that she has a hard time staying hydrated as she has a feeding tube and takes majority of her intake through this. She states over the last few days when she gets up and walks she feels lightheaded as if she is going to pass out and has noted her blood pressure has been running lower than normal. She states when this occurs she typically needs IV hydration. She denies any fevers or chills or trauma or palpitations but with concern for dehydration and need for IV fluids she presents for evaluation [facility] Medical History Asthma DVT (deep venous thrombosis) Paroxysmal hemicrania Ulcer History of stress test Hearing loss, left Diabetes GI bleed Migraines Kidney stones Back pain Syncope History of irregular heartbeat Nausea & vomiting Anastomotic ulcer Wears glasses Anemia Migraine headache History of ulceration Gastric reflux History of echocardiogram Hypertension Cardiology follow-up encounter Abdominal pain Non-smoker Home Medications ?Medication ?Instructions ?Recorded ?Last Taken ?Type gabapentin 300 mg capsule 900 mg PO TID 05/18/18 11/26/24 History scopolamine base 1 mg over 3 days 1 patch transdermal Q3D PRN nausea 05/02/22 Unknown Rx transdermal patch and vomiting #24 ea pantoprazole 40 mg tablet,delayed See Rx Instructions .Route 07/18/22 11/26/24 Rx release .COMPLEX #90 tabs albuterol sulfate 90 mcg/actuation 2 puff inhalation Q4H PRN PRN 07/29/23 Unknown Rx aerosol inhaler (Ventolin HFA) Wheezing ##1 benzonatate 200 mg capsule 200 mg PO BID PRN cough #14 caps 07/29/23 Unknown Rx empagliflozin 25 mg tablet 25 mg PO DAILY 07/08/24 11/26/24 History (Jardiance) melatonin 10 mg capsule 20 mg PO QHS 07/08/24 11/25/24 History metformin 500 mg tablet 500 mg PO BID 07/08/24 11/26/24 History metoclopramide HCl 10 mg tablet 10 mg PO Q8H PRN PRN nause 07/08/24 11/25/24 History (Reglan) oxycodone 10 mg tablet 10 mg PO 4X/DAY PRN PRN pain 07/08/24 11/25/24 History tizanidine 4 mg tablet 4 mg PO Q12H PRN muscle spasticity 07/08/24 11/25/24 History topiramate 100 mg tablet 100 mg PO DAILY 07/08/24 11/25/24 History doxycycline monohydrate 100 mg 100 mg PO BID #14 caps 11/29/24 Unknown Rx capsule guaifenesin 600 mg tablet, 1,200 mg (2 x 600 mg) PO BID #20 11/29/24 Unknown Rx extended release 12 hr (Mucinex) tabs midodrine 5 mg tablet 5 mg PO BID #60 tabs 11/29/24 Unknown Rx Allergy/AdvReac Type Severity Reaction Status Date / Time codeine Allergy Other Verified 06/10/25 07:33 morphine Allergy Hives Verified 06/10/25 07:33 Family History Mother Diabetes Pulmonary embolism Father Diabetes Surgical History History of cholecystectomy S/P hysterectomy History of hysterectomy Hx of colonoscopy Hx of tubal ligation History of surgery Hx of section Gastric bypass status for obesity Social History household members: spouse Smoking Status: Never smoker alcohol intake: never substance use type: does not use ROS ROS ED Constitutional Constitutional ED: Denies chills or fever(s) Eyes Eyes: Reports other Details: Positive spots in vision ENT ENT ED: Denies sore throat Cardiovascular Cardiovascular: Reports other Details: Positive lightheadedness/near syncope ; Denies chest pain, palpitations or racing heartbeat Respiratory/Chest Respiratory/Chest: Denies cough or dyspnea Gastrointestinal Gastrointestinal: Reports nausea; Denies abdominal pain, diarrhea or vomiting Musculoskeletal Musculoskeletal: Denies myalgias Integumentary Denies rash Neurologic Neurologic: Denies headache(s) Hematologic/Lymphatic Hematologic/Lymphatic: Denies easy bleeding or easy bruising EXAM Physical Exam Const Vital Signs: 08/17/25 23:02 08/17/25 23:12 08/18/25 00:02 Temperature 98 F Temperature Source Temporal Pulse Rate 88 79 Respiratory Rate 19 H 18 Respiratory Effort Normal Short of Breath Respiratory Pattern Normal Blood Pressure 92/73 124/91 H Blood Pressure Mean 79 102 Pulse Ox 100 97 Oxygen Delivery Method Room Air Room Air 08/18/25 01:00 08/18/25 01:55 08/18/25 02:08 Temperature 98 F Temperature Source Pulse Rate 90 81 77 Respiratory Rate 13 16 16 Respiratory Effort Respiratory Pattern Blood Pressure 126/90 H 119/83 H 131/93 H Blood Pressure Mean 102 95 105 Pulse Ox 97 98 99 Oxygen Delivery Method Room Air Room Air Positive well nourished and well developed General Appearance ED: well developed; Negative for pallor HEENT Reports dry mucous membranes HEENT Narrative: Normocephalic atraumatic No tongue or lip swelling no oral lesions no airway edema or compromise; no secondary findings in the posterior pharynx to suggest infection Mucous membranes are dry and tacky Mouth ED: Yes dry mucous membranes Mouth: dry mucous membranes Eyes PERRL and EOMs intact bilaterally General Eye ED: Negative for scleral icterus Neck supple Resp normal respiratory effort and clear to auscultation bilaterally Cardio regular rate and regular rhythm Rate: other Other Details: Radial and carotid pulses are equal and symmetric GI normal to inspection, nondistended, normoactive bowel sounds, non-tender, non-distended and no masses GI Narrative: No voluntary guarding no rigidity or pulsatile mass Auscultation: normoactive bowel sounds Palpation: soft Extremity normal to inspection Neuro oriented x3, CN's II-XII intact bilaterally and no sensory deficits noted Sensorium / Orientation: alert Motor Exam: strength 5/5 throughout Psych mental status grossly normal Skin no rashes or lesions noted and No skin turgor normal Skin Narrative: Skin turgor is increased consistent with dehydration General Skin Exam: Negative for jaundice or pallor MDM MDM MDM Narrative Medical decision making narrative: Patient arrived to the ER borderline hypotensive. She reported that this occurs frequently as she takes majority of her intake through a feeding tube. In order to assess for acute blood loss anemia acute kidney injury or electrolyte abnormality as a cause of her symptoms basic blood work was obtained. Labs revealed no clinically significant findings. After receiving 2 L of normal saline through the IV patient reported feeling better and her blood pressure improved. She was now able to ambulate without sensation of passing out. Therefore with improvement of hypotension and labs showing no signs of LEO or clinically significant electrolyte abnormality I do not feel need for further intervention and she is otherwise safe for discharge. History & Record Review Discussion w/independent historian: Patient and Significant other Lab Data Attestation: I reviewed the patient's lab results. Labs: Laboratory Results - last 24 hr 08/17/25 23:20 WBC 8.4 RBC 3.69 L Hgb 11.3 L Hct 34.8 L MCV 94.3 MCH 30.6 MCHC 32.5 RDW Std Deviation 41.2 RDW Coeff of Katelynn 11.9 Plt Count 449 MPV 10.3 Immature Gran % (Auto) 0.700 Neut % (Auto) 54.0 Lymph % (Auto) 34.5 [place] % (Auto) 7.4 Eos % (Auto) 2.4 Baso % (Auto) 1.0 Absolute Neuts (auto) 4.5 Absolute Lymphs (auto) 2.89 Nucleated RBC % 0 Sodium 136 Potassium 5.5 H Chloride 98 Carbon Dioxide 22.6 Anion Gap 16 H BUN 34 H Creatinine 0.97 Estim Creat Clear Calc 77.95 Est GFR (MDRD) Non-Af 74 BUN/Creatinine Ratio 35.4 H Glucose 181 H Calcium 9.6 Discharge Plan Triage Chief Complaint: Hypotension ED Provider: Stephen Girard Dx/Rx/DC Orders Clinical Impression: Dehydration, Orthostatic syncope, Non-insulin dependent diabetes mellitus, Hypotension Instructions: ED Dehydration (Adult), ED Hypotension, Orthostatic Prescriptions: No Action scopolamine base 1 mg over 3 days patch 3 day 1 patch transdermal Q3D PRN (Reason: nausea and vomiting) Qty: 24 3RF gabapentin 300 MG capsule 900 mg PO TID Patient Comments: take 3 capsules by mouth at bedtime benzonatate 200 mg capsule 200 mg PO BID PRN (Reason: cough) Qty: 14 0RF albuterol sulfate [Ventolin HFA] 90 mcg/actuation HFA aerosol inhaler 2 puff inhalation Q4H PRN PRN (Reason: Wheezing) Qty: 1 0RF metformin 500 mg tablet 500 mg PO BID Jardiance 25 mg tablet 25 mg PO DAILY tizanidine 4 mg tablet 4 mg PO Q12H PRN (Reason: muscle spasticity) metoclopramide HCl [Reglan] 10 mg tablet 10 mg PO Q8H PRN PRN (Reason: nause) topiramate 100 mg tablet 100 mg PO DAILY oxycodone 10 mg tablet 10 mg PO 4X/DAY PRN PRN (Reason: pain) melatonin 10 mg capsule 20 mg PO QHS midodrine 5 mg Tablet 5 mg PO BID Qty: 60 0RF doxycycline monohydrate 100 mg Capsule 100 mg PO BID Qty: 14 0RF guaifenesin [Mucinex] 600 mg tablet extended release 12hr 1,200 mg PO BID Qty: 20 0RF pantoprazole 40 mg tablet,delayed release (DR/EC) See Rx Instructions .ROUTE .COMPLEX Qty: 90 3RF Dose Instruction: take 1 tablet by mouth once daily Rx Instructions: take 1 tablet by mouth TWICE daily Primary Care Provider: Juan Manuel Mirza Referrals: Juan Manuel Mirza MD [Primary Care Provider, Medical] Activity Restrictions/Additional Instructions: Please continue all your medication as directed by your doctor and keep yourself well-hydrated. Return to the ER for any further concerns or worsening of symptoms Print Language: Kiswahili Disposition Disposition: Home, Self Care Discharge Date/Time: 08/18/25 02:11
[2025-08-18 01:00] VITALS: BP 126/90; PULSE 90; RESP 13; O2SAT 97
[2025-08-18] MEDS: 0.9% Normal Saline (1000mL) 1,000 ML 999 ML IV (01:02)
[2025-08-18 01:55] VITALS: BP 119/83; PULSE 81; RESP 16; O2SAT 98
[2025-08-18 02:08] VITALS: BP 131/93; PULSE 77; RESP 16; TEMP 36.6; O2SAT 99
== END 2025-08-18 02:11 | disposition home or self-care (01) ==
PROVIDERS: Emergency Provider Emergency Medicine; PCP Family Medicine; Visit Provider Emergency Medicine
DX: E86.0 Dehydration (principal); E11.9 Type 2 diabetes mellitus without complications; R55 Syncope and collapse; I95.9 Hypotension, unspecified; I10 Essential (primary) hypertension; Z98.84 Bariatric surgery status; J45.909 Unspecified asthma, uncomplicated; K21.9 Gastro-esophageal reflux disease without esophagitis
CPT/HCPCS: 80048; 85025; 96360; 96361; 99283; A4216

== ENCOUNTER 2025-09-07 04:51 | Emergency (ER) | payer OTHER, SELFPAY ==
[2025-09-07 04:52] VITALS: PULSE 84; RESP 15; TEMP 36.7; O2SAT 97; BMI 26.4
--- NOTE | 2025-09-07 05:13 | EKG12_ITS ---
Test Reason : DYSRHYTHMIA Blood Pressure : */* mmHG Vent. Rate : 80 BPM Atrial Rate : 80 BPM P-R Int : 192 ms QRS Dur : 102 ms QT Int : 416 ms P-R-T Axes : 36 68 66 degrees QTcB Int : 479 ms Normal sinus rhythm Normal ECG Confirmed by MANAN LANDAVERDE, KIKA ([id number]), proposal editor MELO JESSICA ([id number]) on 09/08/2025 12:18:02 PM Referred By: Confirmed By: KIKA HINKLE MD
--- NOTE | 2025-09-07 05:19 | EX.ED.DYSGE1 ---
HPI History of Present Illness Chief Complaint: Syncope Informant: patient and spouse/S.O. Narrative Narrative: Patient is a 45-year-old female presenting with right shoulder pain and multiple contusions after a fall. Patient is accompanied by her , who is supplementing history. - Patient reports waking up on the floor with no memory of the fall; suspects she may have fallen out of bed. - Right shoulder pain described as excruciating after her arm was caught in a drawer during the fall; has a known small rotator cuff tear on that side that has bothered her for years, but not bad enough to need surgery. - Reports redness and bruising on the side of her leg and a minor head injury from hitting the floor, she thinks. - Denies significant concern for leg or head injuries. - Reports a minor nonproductive cough starting this morning; has a history of 18 episodes of pneumonia in the last two years, with the most recent episode in October. Denies any dyspnea right now. - Has residual scarring in the lungs from previous pneumonias. 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 - Currently receives nocturnal tube feedings due to inability to intake sufficient nutrients orally. - Experiences frequent dehydration, requiring ER visits for hydration every 6-8 weeks; reports episodes of hypotension (as low as 60/40 mmHg) and syncope. - Denies passing out 2 days ago despite feeling dehydrated. - Baseline hypotension. - Prior to ER arrival she was able to stand on both of her legs and bear weight without significant pain but felt a little weak and wobbly requiring her 's assistance to ambulate. PFSH PFS Medical History Asthma DVT (deep venous thrombosis) Paroxysmal hemicrania Ulcer History of stress test Hearing loss, left Diabetes GI bleed Migraines Kidney stones Back pain Syncope History of irregular heartbeat Nausea & vomiting Anastomotic ulcer Wears glasses Anemia Migraine headache History of ulceration Gastric reflux History of echocardiogram Hypertension Cardiology follow-up encounter Abdominal pain Non-smoker Home Medications ?Medication ?Instructions ?Recorded ?Last Taken ?Type gabapentin 300 mg capsule 900 mg PO TID 05/18/18 11/26/24 History scopolamine base 1 mg over 3 days 1 patch transdermal Q3D PRN nausea 05/02/22 Unknown Rx transdermal patch and vomiting #24 ea pantoprazole 40 mg tablet,delayed See Rx Instructions .Route 07/18/22 11/26/24 Rx release .COMPLEX #90 tabs albuterol sulfate 90 mcg/actuation 2 puff inhalation Q4H PRN PRN 07/29/23 Unknown Rx aerosol inhaler (Ventolin HFA) Wheezing ##1 benzonatate 200 mg capsule 200 mg PO BID PRN cough #14 caps 07/29/23 Unknown Rx empagliflozin 25 mg tablet 25 mg PO DAILY 07/08/24 11/26/24 History (Jardiance) melatonin 10 mg capsule 20 mg PO QHS 07/08/24 11/25/24 History metformin 500 mg tablet 500 mg PO BID 07/08/24 11/26/24 History metoclopramide HCl 10 mg tablet 10 mg PO Q8H PRN PRN nause 07/08/24 11/25/24 History (Reglan) oxycodone 10 mg tablet 10 mg PO 4X/DAY PRN PRN pain 07/08/24 11/25/24 History tizanidine 4 mg tablet 4 mg PO Q12H PRN muscle spasticity 07/08/24 11/25/24 History topiramate 100 mg tablet 100 mg PO DAILY 07/08/24 11/25/24 History doxycycline monohydrate 100 mg 100 mg PO BID #14 caps 11/29/24 Unknown Rx capsule guaifenesin 600 mg tablet, 1,200 mg (2 x 600 mg) PO BID #20 11/29/24 Unknown Rx extended release 12 hr (Mucinex) tabs midodrine 5 mg tablet 5 mg PO BID #60 tabs 11/29/24 Unknown Rx Allergy/AdvReac Type Severity Reaction Status Date / Time codeine Allergy Other Verified 06/10/25 07:33 morphine Allergy Hives Verified 06/10/25 07:33 Family History Mother Diabetes Pulmonary embolism Father Diabetes Surgical History History of cholecystectomy S/P hysterectomy History of hysterectomy Hx of colonoscopy Hx of tubal ligation History of surgery Hx of section Gastric bypass status for obesity Social History household members: spouse Smoking Status: Never smoker alcohol intake: never substance use type: does not use ROS ROS ED Constitutional Constitutional ED: Reports weakness; Denies chills or fever(s) Eyes Eyes: Denies change in vision or diplopia ENT ENT ED: Denies ear pain, rhinorrhea or sore throat Cardiovascular Cardiovascular: Denies chest pain or palpitations Respiratory/Chest Respiratory/Chest: Reports cough; Denies dyspnea or sputum Gastrointestinal Gastrointestinal: Denies abdominal pain, diarrhea, nausea or vomiting Genitourinary Genitourinary ED: Denies dysuria or hematuria Musculoskeletal Musculoskeletal: Reports as per HPI and extremity pain; Denies back pain or neck pain Integumentary Denies abscess or rash Neurologic Neurologic: Reports headache(s); Denies paresthesias or weakness Psychiatric Psychiatric: Denies anxiety or suicidal thoughts EXAM Physical Exam Const Vital Signs: 09/07/25 04:52 09/07/25 04:58 09/07/25 05:51 Temperature 98.1 F Temperature Source Oral Pulse Rate 84 82 Respiratory Rate 15 14 Respiratory Effort Normal Respiratory Pattern Normal Blood Pressure 92/72 Blood Pressure Mean 78 Pulse Ox 97 98 Oxygen Delivery Method Room Air Room Air 09/07/25 06:00 Temperature Temperature Source Pulse Rate 80 Respiratory Rate 14 Respiratory Effort Respiratory Pattern Blood Pressure Blood Pressure Mean Pulse Ox 98 Oxygen Delivery Method Room Air Positive well nourished and well developed General Appearance ED: well developed and NAD HEENT Reports moist mucous membranes normocephalic and atraumatic Eyes PERRL and EOMs intact bilaterally Neck full ROM and supple General: Negative for tenderness Resp normal respiratory effort and clear to auscultation bilaterally Cardio regular rate, regular rhythm and no murmurs GI non-tender and non-distended GI Narrative: PEG site benign Auscultation: normoactive bowel sounds Palpation: soft Back/Spine no CVA tenderness General Back: other FROM Extremity normal to inspection Extremity Narrative: Broad-based hyperemia of the left lateral thigh, knee, proximal aspect of the lower leg, almost consistent with a minor rug burn. Skin and epidermis all intact. Minimally tender throughout. No induration to suggest infection. Nontender right shoulder, no deformity, no tenderness at the acromioclavicular joint. Limited range of motion patient refuses to attempt to abduct due to pain, but she forward flexes using her right hand to reach down to her right knee without limitation/difficulty. Full range of motion throughout both lower extremities and the left upper extremity without difficulty or pain. General Extremety ED: Negative for edema, pulses abnormal or tenderness General Extremity: Negative for edema or pulses abnormal Neuro oriented x3, CN's II-XII intact bilaterally and no sensory deficits noted Neuro Narrative: GCS 15 Sensorium / Orientation: awake and alert Motor Exam: strength 5/5 throughout Psych mental status grossly normal Skin no rashes or lesions noted and no wounds MDM MDM MDM Narrative Medical decision making narrative: Assessment: The patient is a 45-year-old female with PMH of Aliza-en-Y gastric bypass (2009) complicated by chronic nutritional issues requiring nighttime tube feeds, paroxysmal hemicrania, and prior small right rotator-cuff tears who presents after an unwitnessed nocturnal fall, now with right shoulder pain, right leg abrasion, mild headache, and symptoms of dehydration. Four-view right-shoulder radiographs are negative for fracture or dislocation, making rotator-cuff strain/sprain most likely. Non-contrast head CT shows no acute intracranial process, supporting a minor closed head injury without red-flag features. Basic labs reveal BUN 36 and creatinine 1.05 consistent with pre-renal azotemia, likely secondary to volume depletion, and serum glucose 332 indicating hyperglycemia, which she is following on her wireless glucometer; this came down to 170's after IVF. EKG demonstrates normal sinus rhythm at 80 with no interval or ischemic changes. Overall, injuries appear limited to soft tissue; dehydration is addressed with IV fluids. Plan: - Administered IV crystalloid bolus for dehydration. - Offered and will provide oral/IV analgesics per patient preference; sling supplied for comfort. - Discharge home with , is ambulating safely and feeling better after IVF; outpatient orthopedic follow-up for shoulder. - Provided return precautions and instructions regarding glycemic control and hydration. Diagnostics: - 4-view X-ray right shoulder: no fracture or dislocation. Independently interpreted by Emmanuel durand. - Non-contrast head CT: no acute intracranial findings. Independently interpreted by Emmanuel durand. - Labs: BUN 36 mg/dL, creatinine 1.05 mg/dL (pre-renal azotemia); serum glucose 332 mg/dL (hyperglycemia). - EKG interpreted: sinus rhythm 80 bpm; normal intervals; no ST-T changes. Independently interpreted by Emmanuel durand. Lab Data Attestation: I reviewed the patient's lab results. Labs: Laboratory Results - last 24 hr 09/07/25 05:00 WBC 10.3 RBC 4.01 L Hgb 11.9 L Hct 38.1 MCV 95.0 MCH 29.7 MCHC 31.2 L RDW Std Deviation 44.0 H RDW Coeff of Katelynn 12.6 Plt Count 310 MPV 11.2 Immature Gran % (Auto) 0.300 Neut % (Auto) 64.3 Lymph % (Auto) 24.3 [place] % (Auto) 7.5 Eos % (Auto) 3.0 Baso % (Auto) 0.6 Absolute Neuts (auto) 6.6 Absolute Lymphs (auto) 2.51 Nucleated RBC % 0 Sodium 136 Potassium 4.4 Chloride 97 L Carbon Dioxide 23.5 Anion Gap 15 BUN 36 H Creatinine 1.05 Estim Creat Clear Calc 72.92 Est GFR (MDRD) Non-Af 67 BUN/Creatinine Ratio 34.4 H Glucose 332 H Calcium 10.0 Radiography Diagnostic Testing: Clinical Impression(s) from Imaging Studies Brain CT 09/07/25 05:40 IMPRESSION: No intracerebral or extra-axial hemorrhage. No acute territorial cerebrovascular insult. If clinical symptoms persist, further evaluation with MRI may be considered as clinically warranted. Reading Location: [place] [address] Shoulder X-Ray 09/07/25 06:00 IMPRESSION: No radiographic evidence of an acute bone abnormality. Reading Location: [place] [address] Rhythm Strip Rhythm Strip: Sinus Rhythm Rate: 80 Ectopy: None EKG Initial EKG: Attestation: I personally reviewed and interpreted this EKG as follows: Interpretation: Sinus Rhythm and No Acute Injury Pattern Comments: Nml axis & intervals; nml EKG Discharge Plan Triage Chief Complaint: Syncope ED Provider: Emmanuel Gamez Dx/Rx/DC Orders Clinical Impression: Sprain of right shoulder, Closed head injury without concussion, Mild dehydration, Accidental fall from bed, Acute hyperglycemia, Abrasion of right lower extremity Instructions: ED Shoulder Sprain Prescriptions: No Action scopolamine base 1 mg over 3 days patch 3 day 1 patch transdermal Q3D PRN (Reason: nausea and vomiting) Qty: 24 3RF gabapentin 300 MG capsule 900 mg PO TID Patient Comments: take 3 capsules by mouth at bedtime benzonatate 200 mg capsule 200 mg PO BID PRN (Reason: cough) Qty: 14 0RF albuterol sulfate [Ventolin HFA] 90 mcg/actuation HFA aerosol inhaler 2 puff inhalation Q4H PRN PRN (Reason: Wheezing) Qty: 1 0RF metformin 500 mg tablet 500 mg PO BID Jardiance 25 mg tablet 25 mg PO DAILY tizanidine 4 mg tablet 4 mg PO Q12H PRN (Reason: muscle spasticity) metoclopramide HCl [Reglan] 10 mg tablet 10 mg PO Q8H PRN PRN (Reason: nause) topiramate 100 mg tablet 100 mg PO DAILY oxycodone 10 mg tablet 10 mg PO 4X/DAY PRN PRN (Reason: pain) melatonin 10 mg capsule 20 mg PO QHS midodrine 5 mg Tablet 5 mg PO BID Qty: 60 0RF doxycycline monohydrate 100 mg Capsule 100 mg PO BID Qty: 14 0RF guaifenesin [Mucinex] 600 mg tablet extended release 12hr 1,200 mg PO BID Qty: 20 0RF pantoprazole 40 mg tablet,delayed release (DR/EC) See Rx Instructions .ROUTE .COMPLEX Qty: 90 3RF Dose Instruction: take 1 tablet by mouth once daily Rx Instructions: take 1 tablet by mouth TWICE daily Primary Care Provider: Juan Manuel Mirza Referrals: Juan Manuel Mirza MD [Primary Care Provider, Medical] Referral Note: And/or your orthopedic regarding your shoulder Print Language: Icelandic Disposition Disposition: Home, Self Care
[2025-09-07 05:21] LABS: Hematocrit 38.1 % (37-47); Hemoglobin 11.9 g/dL (12.0-15.0); Immature Granulocytes Count 0.030 X10^3/uL (0.0-0.0); Mean Corp Hgb Conc 31.2 g/dL (32-36); Mean Corpuscular Volume 95.0 fL (81-99); Mean Platelet Vol. 11.2 fl (6.2-12.0); NRBC Flagged by Analyzer 0 % (0-5); Platelet Count 310 K/mm3 (150-450); RBC Distribution Width CV 12.6 % (11.6-14.6); RBC Distribution Width SD 44.0 fl (35.1-43.9); Red Blood Count 4.01 M/mm3 (4.2-5.4); White Blood Count 10.3 K/mm3 (4.4-11.0)
--- NOTE | 2025-09-07 05:40 | CT_ITS ---
PROCEDURE: BRAIN/HEAD WITHOUT CONTRAST 09/07/2025 REASON FOR EXAM: FALL/TRAUMA TECHNIQUE: Procedure Code: CTBR Modality: CT Procedure: BRAIN/HEAD WITHOUT CONTRAST Coronal and Sagittal reconstruction series were provided. One or more dose reduction techniques were used (e.g., Automated exposure control, adjustment of the mA and/or kV according to patient size, use of iterative reconstruction technique. RADIATION DOSE SUMMARY: CTDI Vol 44.99 mGy DLP :846.73 mGycm COMPARISON: 10-Jun-2025 FINDINGS: The visualized brain parenchyma shows normal appearance. No focal parenchymal abnormalities are demonstrated. Up-white matter differentiation is maintained. Normal CT appearance of the posterior fossa structures. No intracerebral or extra-axial hemorrhage. No midline shifts or deformity. Normal size and configuration of the cerebral ventricles. No definite calvarial fractures. The osseous structures in the skull base are unremarkable. Scanned paranasal sinuses show minimal maxillary mucosal thickening. CT/Brain/Head without Contrast IMPRESSION: No intracerebral or extra-axial hemorrhage. No acute territorial cerebrovascular insult. If clinical symptoms persist, furt her evaluation with MRI may be considered as clinically warranted. Reading [facility]
[2025-09-07 05:51] VITALS: BP 92/72; PULSE 82; RESP 14; O2SAT 98
[2025-09-07 06:00] VITALS: PULSE 80; RESP 14; O2SAT 98
--- NOTE | 2025-09-07 06:00 | RAD_ITS ---
PROCEDURE: SHOULDER MIN 2 VIEWS 09/07/2025 REASON FOR EXAM: PAIN/INJURY TECHNIQUE: Procedure Code: RADSH Modality: DX Procedure: SHOULDER MIN 2 VIEWS Laterality: Right. COMPARISON: None. FINDINGS: Calcific tendinosis of the humeral insertional fibers of the rotator cuff tendons. Normal glenohumeral articulation. Normal acromioclavicular joint. Normal acromion. Normal humeral head and visualized proximal humerus. Normal visualized scapula. There is no demonstrated soft tissue abnormality. Normal visualized pulmonary apex. RAD/Shoulder min 2 Views IMPRESSION: No radiographic evidence of an acute bone abnormality. Reading [facility]
[2025-09-07 06:02] LABS: Anion Gap 15 (5-15); BUN 36 mg/dL (4-19); BUN/Creat Ratio 34.4 RATIO (10-20); Calcium,Total 10.0 mg/dL (7.6-11.0); Carbon Dioxide 23.5 mmol/L (21.0-32.0); Chloride 97 mmol/L (98-108); Estimated Creatinine Clearance 72.92 ml/min (50-250); Glucose 332 mg/dL (70-99); Potassium 4.4 mmol/L (3.3-5.1)
[2025-09-07] MEDS: 0.9% Normal Saline (1000mL) 1,000 ML 999 ML IV (06:08)
[2025-09-07 07:00] VITALS: PULSE 78; RESP 14; O2SAT 99
[2025-09-07 07:02] VITALS: BP 113/84; PULSE 79; RESP 14; TEMP 37.2; O2SAT 97
== END 2025-09-07 08:48 | disposition home or self-care (01) ==
PROVIDERS: Emergency Provider Emergency Medicine; PCP Family Medicine; Visit Provider Emergency Medicine
DX: S09.90XA Unspecified injury of head, initial encounter (principal); E11.65 Type 2 diabetes mellitus with hyperglycemia; I10 Essential (primary) hypertension; Z86.718 Personal history of other venous thrombosis and embolism; M25.511 Pain in right shoulder; R55 Syncope and collapse; S43.401A Unspecified sprain of right shoulder joint, initial encounter; S80.811A Abrasion, right lower leg, initial encounter; Z98.84 Bariatric surgery status; E86.0 Dehydration; K21.9 Gastro-esophageal reflux disease without esophagitis; Z90.49 Acquired absence of other specified parts of digestive tract; Z98.51 Tubal ligation status; Z90.710 Acquired absence of both cervix and uterus; R05.9 Cough, unspecified; W06.XXXA Fall from bed, initial encounter
CPT/HCPCS: 70450; 73030; 80048; 85025; 93005; 96360; 99282; A4216